=== PATIENT | male | born 1940 | race Caucasian/White ===

== ENCOUNTER 2019-02-27 22:20 | Inpatient (IN) | payer OTHER ==
--- NOTE | 2019-02-27 22:26 | PDOC ---
History of Present Illness - General Stated Complaint: R/O STROKE Time Seen by Provider: 02/27/19 22:26 - History of Present Illness Initial Comments: 78 year old male with PMH of CVA, HTN, Afib, COPD, and generalized weakness presenting with sudden onset right sided weakness and dysphagia at 20:45 today. According to his nurse, he is normally talkative, well behaved, and ambulatory. She found him slumped out of the couch at 20:45 while watching TV in the common area after being seen well a few minutes prior. He was very weak on the right side and had garbled speech. 02/27/19 22:56 tPA Exclusion Checklist 0-3hr - Time Elapsed Date last known well: 02/27/19 Time last known well: 20:45 Elaspsed time: Day(s) and 5 Hour(s) and 9 Minutes - Thrombolytic Therapy Candidate Is the patient eligible for Thrombolytic Therapy?: No - Exclusion Criteria 0-3hr SBP greater than 185 or DBP greater than 110mmHg despite tx: No Recent IC/spinal surgery,head trauma or stroke w/in last 3mo: No Hx of previous IC hemorrhage, IC neoplasm, AVM or aneurysm: No Active internal bleeding: No Blding diathesis(low plt ct, inc PTT,INR>1.7 or use of NOAC): Yes Symptoms suggest subarachnoid hemorrhage: No CT demonstrates multilobar infarct(>1/3 cerebral hemiphere): No Arterial puncture at noncompressible site in previous 7 days: No Blood glucose concentration less than 50mg/dL (2.7mmol/L): No - Relative Exclusion Criteria 0-3h Life expectancy <1yr/severe co-morbid illness/VICE PRESIDENT RESEARCH on admit: No - Ineligibility reason(s) Reasons No tPA given: See reason(s) noted above (eliquis) NIH Stroke Scale - Last Known Well Date/Time & Onset Date Last Known Well: 02/27/19 Time Last Known Well: 20:45 - Initial Evaluation Level of consciousness: Alert Ask patient the month and their age: Answers one correctly (Dysarthric so unable to speak) Ask patient to open & close eyes; make fist and let go: Obeys both correctly Best gaze (horizontal eye movement): Partial gaze palsy Visual field testing: Partial hemianopia Facial paresis (Show teeth/raise eyebrows/close eyes tight): Partial paralysis ( total or near paralysis of lower face) Motor Function: Left Arm: Normal Motor Function: Right Arm: Normal (extends arm 90 (or 45) degrees for 10 seconds without drift Motor Function: Left Leg: Normal (extends leg 30 degrees for 5 seconds without drift) Motor Function: Right Leg: Normal (extends leg 30 degrees for 5 seconds without drift) Limb Ataxia: No ataxia Sensory(Use pinprick test arms,legs,trunk,face/side to side): Normal Best language (Describe picture, name items, read sentences): No Aphasia Dysarthria (read several words): Near unintelligible or unable to speak Extinction and Inattention: Inattention or extinction bilaterally to one of the sensory modalities - Total Score NIH Stroke Scale Score: 8 Past History - Past Medical History Allergies/Adverse Reactions: Allergies Allergy/AdvReac Type Severity Reaction Status Date / Time No Known Allergies Allergy Verified 02/27/19 22:24 Home Medications: Ambulatory Orders Acetaminophen [Tylenol] 650 mg PO Q8H 02/28/19 Atorvastatin Ca [Lipitor] 80 mg PO HS 02/28/19 Calcium 250Mg/Vit-D 125 Units [Oscal 250 mg+D -] 1 combo PO BID 02/28/19 Carbamazepine 200 mg PO BID 02/28/19 Ceramides 1,3,6-11 [Cerave] 355 ml TP DAILY 02/28/19 Darbepoetin Odin in Polysorbat [Aranesp] 100 mcg IJ MONTHLY 02/28/19 Ferrous Gluconate [Ferate] 240 mg PO DAILY 02/28/19 Folic Acid 400 mcg PO DAILY 02/28/19 Gabapentin 600 mg PO BID 02/28/19 Lidocaine HCl [Aspercreme] 76.5 gm TP DAILY 02/28/19 Metoprolol Succinate [Toprol Xl] 100 mg PO DAILY 02/28/19 Niacin 500 mg PO HS 02/28/19 Pregabalin [Lyrica] 50 mg PO BID 02/28/19 Rivaroxaban [Xarelto -] 20 mg PO DAILY 02/28/19 Tamsulosin HCl [Flomax] 0.8 mg PO DAILY 02/28/19 Review of Systems - Review of Systems Able to Perform ROS?: No (dyaphagia) *Physical Exam - Physical Exam General Appearance: Yes: Nourished, Appropriately Dressed. No: Apparent Distress HEENT: positive: EOMI, CORTEZ. negative: Normal ENT Inspection (dysphagia, edontulius), Normal Voice Neck: positive: Trachea midline, Normal Thyroid, Supple. negative: Tender, Rigid Respiratory/Chest: positive: Lungs Clear, Normal Breath Sounds. negative: Chest Tender, Respiratory Distress, Accessory Muscle Use Cardiovascular: positive: Regular Rhythm, Regular Rate Gastrointestinal/Abdominal: positive: Normal Bowel Sounds, Flat, Soft. 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 negative: Normal Range of Motion, Tender Integumentary: positive: Normal Color, Dry, Warm Neurologic: positive: Alert, Normal Mood/Affect, Normal Response, Motor Strength 09/21 ED Treatment Course - LABORATORY CBC & Chemistry Diagram: 02/27/19 11:00 02/27/19 11:00 - RADIOLOGY Radiology Studies Ordered: Category Date Time Status HEAD CT (STROKE) [CT] Stat CT Scan 02/27/19 22:24 Ordered Medical Decision Making - Medical Decision Making 78 year old male with PMH of CVA presenting with right sided weakness and dysphagia. Ct head negative only showing old infarct and CTA head demonstrating microvascular low flow state to the left side hemisphere. Labs WNL but UA demonstrating possible infection. Patient given 1 G rocephin and 1 L fluid. Spoke to Neuro after dry CT and he recommended CTA and to call back if CTA demonsrated any clot because of ptoetnial for transfer as he was not a candidate for TPA given eliquis usage. Patient discussed with hospitalist and admitted to stroke tele. 02/28/19 02:04 Discharge - Discharge Information Problems reviewed: Yes Clinical Impression/Diagnosis: Weakness, Concern about stroke without diagnosis Dysphagia Qualifiers: Dysphagia type: unspecified Qualified Code(s): R13.10 - Dysphagia, unspecified Condition: Stable - Admission Yes - Follow up/Referral - Patient Discharge Instructions - Post Discharge Activity
[2019-02-27 23:23] LABS: BASO % 0.5 % (0-2.0); EOS % 2.2 % (0-4.5); HEMATOCRIT 31.2 % (35.4-49); HEMOGLOBIN 10.1 GM/dL (11.7-16.9); MCH 31.2 pg (25.7-33.7); MCHC 32.3 g/dl (32.0-35.9); MEAN CELL VOLUME 96.5 fl (80-96); MEAN PLT VOLUME 8.6 fl (7.5-11.1); MONO % 10.2 % (3.8-10.2); NEUT % 80.1 % (42.8-82.8); PLATELET COUNT 230 K/MM3 (134-434); RBC 3.23 M/mm3 (4.00-5.60); RDW 16.1 % (11.9-15.9); WHITE BLOOD COUNT 7.4 K/mm3 (4.0-10.0)
[2019-02-27 23:29] LABS: EPI CELLS 0.2 /HPF (0-5/HPF); HYALINE CASTS 13 /lpf (0-8); PH,URINE 6.5 (5.0-8.0); URINE APPEARANCE CLEAR; URINE BACTERIA 96.7 /hpf (NEGATIVE); URINE BILIRUBIN NEGATIVE (NEGATIVE); URINE COLOR YELLOW; URINE GLUCOSE (UA) NEGATIVE (NEGATIVE); URINE KETONE NEGATIVE (NEGATIVE); URINE LEUK ESTERASE 3+ (NEGATIVE); URINE NITRITE NEGATIVE (NEGATIVE); URINE PROTEIN TRACE (NEGATIVE); URINE RBC 3 /hpf (0-4); URINE UROBILINOGEN 0.2 mg/dL (0.2-1.0); URINE WBC 127 /hpf (0-5)
[2019-02-27 23:35] LABS: INR 1.07 (0.83-1.09); PROTHROMBIN TIME (PATIENT) 12.6 SEC (9.7-13.0)
[2019-02-27 23:43] LABS: ALBUMIN 3.5 g/dl (3.4-5.0); BILIRUBIN,TOTAL 0.3 mg/dL (0.2-1); CALCIUM 9.1 mg/dL (8.5-10.1); POTASSIUM 4.8 mmol/L (3.5-5.1); TOT PROT 7.2 g/dl (6.4-8.2)
[2019-02-27] MEDS: SODIUM CHLORIDE 1,000 ML IV SCH (23:46)
[2019-02-27] MEDS ORDERED: CEFTRIAXONE 1,000 MG in DEXTROSE 5%-WATER - 50 ML IVPB ONE (23:57)
[2019-02-27] MEDS ORDERED: CEFTRIAXONE 1 GM/50 ML BAG ONE (23:59)
--- NOTE | 2019-02-28 00:18 | PDOC ---
Attending Attestation - Resident Resident Name: Maxine Call - ED Attending Attestation I have performed the following: I have examined & evaluated the patient, The case was reviewed & discussed with the resident, I agree w/resident's findings & plan, Exceptions are as noted - HPI HPI: 02/28/19 01:08 Mr. Obrien is a 78 yo M h/o Afib on xeralto, HTN, COPD, CVA resident of [facility] who was sent to the ER after being found slumped over Pt was in his usual state of health, had dinner at 5 pm He was noted to slump over at approximately 8:45pm Pt noted to be dysarthric He has had no fevers or chills No head trauma 03/02/19 10:45 - Physicial Exam PE: 02/28/19 01:27 GENERAL: The patient is in no acute distress. ENT: Ears normal, nares patent, oropharynx clear without exudates. Moist mucous membranes. NECK: Normal range of motion, supple LUNGS: Breath sounds equal, clear to auscultation bilaterally. No wheezes, and no crackles. HEART: Regular rate and rhythm, normal S1 and S2 ABDOMEN: Soft, nontender, normoactive bowel sounds. EXTREMITIES: Normal range of motion, no edema. NEUROLOGICAL: flattening or nasolabial fold, able to hold hands and legs up against gravity Alert oriented x 0 , neck is supple Aphasic and not able to express eomi, pupils reactive See Dr. Call's NIHSS SKIN: Warm, Dry, no rashes 02/28/19 01:28 - Critical Care Time Total Critical Care Time: 60 Critical Care Statement: The care of this patient involved high complexity decision making to prevent further life threatening deterioration of the patient 's condition and/or to evaluate & treat vital organ system(s) failure or risk of failure. - Medical Decision Making CODE MATHIS called on this patient CT performed - demonstrates prior cerebellar stroke, no acute intracranial bleed Call placed to neurology 02/28/19 00:18 Laboratory Tests 02/27/19 02/27/19 02/27/19 11:00 11:00 11:00 WBC 7.4 Hgb 10.1 L Hct 31.2 L Plt Count 230 BUN 28.0 H Creatinine 1.0 Creatine Kinase 27 Troponin I < 0.02 Urine Blood Urine Nitrite Ur Leukocyte Esterase Urine WBC (Auto) Urine RBC (Auto) 02/27/19 11:20 WBC Hgb Hct Plt Count BUN Creatinine Creatine Kinase Troponin I Urine Blood Negative Urine Nitrite Negative Ur Leukocyte Esterase 3+ H Urine WBC (Auto) 127 Urine RBC (Auto) 3 CTA performed: results pending 02/28/19 01:28 Pt remains dysarthric Remainder of his examination is improving Clinical impression: CVA, initial presentation UTI, initial presentation
[2019-02-28] MEDS ORDERED: SODIUM CHLORIDE FOR INHALATION 3 ML VIAL.NEB IH ONE (00:35)
--- NOTE | 2019-02-28 02:43 | PN ---
Teaching Attending Note Name of Resident: Jenniffer Winslow ATTENDING PHYSICIAN STATEMENT I saw and evaluated the patient. I reviewed the resident's note and discussed the case with the resident. I agree with the resident's findings and plan as documented. SUBJECTIVE: Patient is a 78 year old man resident of [facility] with PMH of CVA, HTN, Afib (on xarelto), COPD, and Generalized weakness presenting with sudden onset right sided weakness and dysphagia at 20:45 today. According to his nurse, he is normally talkative, well behaved, and ambulatory. She found him slumped out of the couch at 20:45 while watching TV in the common area after being seen well a few minutes prior. He was very weak on the right side and had garbled speech. Unable to provide more information because of dysarthria. Able to say yes/no and nods. He has had no fevers or chills and no head trauma. OBJECTIVE: Alert Vital Signs Period Temp Pulse Resp BP Sys/Charles Pulse Ox Last 24 Hr 97.6 F-97.8 F 59-66 18-18 158/51 95-99 HEENT: No Jaundice, eye redness or discharge, PERRLA, EOMI. Loss of right nasolabial fold. Normocephalic, atraumatic. External ears are normal and hearing is grossly intact. No nasal discharge. Neck: Supple, nontender. No palpable adenopathy or thyromegaly. No JVD Chest: Good effort. Clear to auscultation and percussion. Heart: Regular with ectopics. No S3, rub or murmur Abdomen: Not distended, soft, nontender and no HSM. No rebound or guarding. Normal bowel sounds. Ext: Peripheral pulses intact. No leg edema. Skin: Warm and dry. No petechiae, rash or ecchymosis. Neuro: Alert. Oriented to person; CN 2-12 grossly intact. Right hemiparesis; Sensation grossly intact in upper extremities and diminished in lower extremities. Psych: Appropriate mood and affect. Good insight. Current Medications Generic Name Dose Route Start Last Admin Trade Name Freq PRN Reason Stop Dose Admin Sodium Chloride 1,000 mls @ 42 mls/hr 02/27/19 22:30 02/27/19 23:46 Normal Saline - IV 42 mls/hr ASDIR AMINA Administration Home Medications Medication Instructions Recorded Acetaminophen [Tylenol] 650 mg PO Q8H 02/28/19 Atorvastatin Ca [Lipitor] 80 mg PO HS 02/28/19 Calcium 250Mg/Vit-D 125 Units 1 combo PO BID 02/28/19 [Oscal 250 mg+D -] Carbamazepine 200 mg PO BID 02/28/19 Ceramides 1,3,6-11 [Cerave] 355 ml TP DAILY 02/28/19 Darbepoetin Odin in Polysorbat 100 mcg IJ MONTHLY 02/28/19 [Aranesp] Ferrous Gluconate [Ferate] 240 mg PO DAILY 02/28/19 Folic Acid 400 mcg PO DAILY 02/28/19 Gabapentin 600 mg PO BID 02/28/19 Lidocaine HCl [Aspercreme] 76.5 gm TP DAILY 02/28/19 Metoprolol Succinate [Toprol Xl] 100 mg PO DAILY 02/28/19 Niacin 500 mg PO HS 02/28/19 Pregabalin [Lyrica] 50 mg PO BID 02/28/19 Rivaroxaban [Xarelto -] 20 mg PO DAILY 02/28/19 Tamsulosin HCl [Flomax] 0.8 mg PO DAILY 02/28/19 Abnormal Lab Results 02/27/19 02/27/19 02/27/19 11:00 11:00 11:20 RBC 3.23 L Hgb 10.1 L Hct 31.2 L MCV 96.5 H RDW 16.1 H Lymphocytes % 7.0 L Anion Gap 3 L BUN 28.0 H Alkaline Phosphatase 152 H Ur Leukocyte Esterase 3+ H ASSESSMENT AND PLAN: 1. CVA/UTI - Initial NIHSS score in the ER was 8. ER staff consulted the neurologist and patient is not a candidate for tPA because he is on Xarelto. Noncontrast head CT showed prior cerebellar stroke but no intracranial bleed. A CTA of brain has been done and the result is pending. EKG shows NSR with no significant ST-T wave changes. Will do neurochecks, implement fall, seizure and aspiration precautions. Will keep him NPO, get speech and swallow evaluation, ECHO, carotid doppler, continue statin therapy, continue xarelto and consult PT. Will treat with Zosyn for UTI pending result of urine culture since he is from a NH. Getting IV NS for mild ROSA ISELA. Will continue comprehensive care for all of patients comorbid conditions. 2. Anemia - Likely multifactorial. Will do basic anemia work up including serial stool guaiacs, reticulocyte count and iron studies. Patient is on Aranesp and Ferrous Gluconate - may benefit from IV iron once intensity of iron deficiency is established. 3. Hypertension - Will practice permissive hypertension for now. Restart suitable outpatient antihypertensive drugs when clinically appropriate. Revise regimen to ensure [id number] excellent BP control and benefits counselor patient on the injurious effects of uncontrolled hypertension. Nonpharmacologic measures to control hypertension like weight loss, salt restriction and exercise discussed. Importance of adherence to treatment regimen and attainment of normotension emphasized. 4. DVT prophylaxis - On xarelto for Afib 5. Advance directives - Full code
--- NOTE | 2019-02-28 05:13 | HP ---
CHIEF COMPLAINT: Right arm weakness and slurred speech PCP: none HISTORY OF PRESENT ILLNESS: As per ED as PT is dysarthric 78 year old male with PMH of CVA, HTN, Afib on Xarelto, COPD, and generalized weakness presenting from [facility] [address] with sudden onset right sided weakness and dysphagia at 20:45 today. According to his nurse, he is normally talkative, well behaved, and ambulatory and had his regular dinner at 17:00. The nurse found him slumped out of the couch at 20:45 while watching TV in the common area after being seen well a few minutes prior. He was very weak on the right side and had garbled speech. ER course was notable for: (1)EKG sinus Bradycardia and a Head CT negative for acute infarct or bleed just 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 (2)CTA done and read by Dr Mills who noted microvascular low flow state to the Left hemisphere with absent macrovascular disease. pending official read (3) CBC remarkable only for anemia of 10.1/31.2, BMP unremarkable, PT 12.6/INR 1.07, trops neg x1, lipid panel UA positive with 1gm of rocephin given and urine culture sent. !L NS bolus Recent Travel: none PAST MEDICAL HISTORY: unobtainable at this time due to dysphagia and dysarthria PAST SURGICAL HISTORY: unobtainable at this time due to dysphagia and dysarthria Social History: unobtainable at this time due to dysphagia and dysarthria Smoking: Alcohol: Drugs: Allergies No Known Allergies Allergy (Verified 02/27/19 22:24) HOME MEDICATIONS: Home Medications Medication Instructions Recorded Acetaminophen [Tylenol] 650 mg PO Q8H 02/28/19 Atorvastatin Ca [Lipitor] 80 mg PO HS 02/28/19 Calcium 250Mg/Vit-D 125 Units 1 combo PO BID 02/28/19 [Oscal 250 mg+D -] Carbamazepine 200 mg PO BID 02/28/19 Ceramides 1,3,6-11 [Cerave] 355 ml TP DAILY 02/28/19 Darbepoetin Odin in Polysorbat 100 mcg IJ MONTHLY 02/28/19 [Aranesp] Ferrous Gluconate [Ferate] 240 mg PO DAILY 02/28/19 Folic Acid 400 mcg PO DAILY 02/28/19 Gabapentin 600 mg PO BID 02/28/19 Lidocaine HCl [Aspercreme] 76.5 gm TP DAILY 02/28/19 Metoprolol Succinate [Toprol Xl] 100 mg PO DAILY 02/28/19 Niacin 500 mg PO HS 02/28/19 Pregabalin [Lyrica] 50 mg PO BID 02/28/19 Rivaroxaban [Xarelto -] 20 mg PO DAILY 02/28/19 Tamsulosin HCl [Flomax] 0.8 mg PO DAILY 02/28/19 REVIEW OF SYSTEMS CONSTITUTIONAL: Absent: fever, chills, diaphoresis, generalized weakness, malaise, loss of appetite, weight change HEENT: Absent: rhinorrhea, nasal congestion, throat pain, throat swelling, difficulty swallowing, mouth swelling, ear pain, eye pain, visual changes CARDIOVASCULAR: Absent: chest pain, syncope, palpitations, irregular heart rate, lightheadedness , peripheral edema RESPIRATORY: Absent: cough, shortness of breath, dyspnea with exertion, orthopnea, wheezing, stridor, hemoptysis GASTROINTESTINAL: Absent: abdominal pain, abdominal distension, nausea, vomiting, diarrhea, constipation, melena, hematochezia GENITOURINARY: Absent: dysuria, frequency, urgency, hesitancy, hematuria, flank pain, genital pain MUSCULOSKELETAL: Absent: myalgia, arthralgia, joint swelling, back pain, neck pain SKIN: Absent: rash, itching, pallor HEMATOLOGIC/IMMUNOLOGIC: Absent: easy bleeding, easy bruising, lymphadenopathy, frequent infections ENDOCRINE: Absent: unexplained weight gain, unexplained weight loss, heat intolerance, cold intolerance NEUROLOGIC: Absent: headache, focal weakness or paresthesias, dizziness, unsteady gait, seizure, mental status changes, bladder or bowel incontinence PSYCHIATRIC: Absent: anxiety, depression, suicidal or homicidal ideation, hallucinations. PHYSICAL EXAMINATION Vital Signs - 24 hr 02/27/19 02/27/19 02/27/19 22:30 22:59 23:25 Temperature 97.6 F 97.8 F Pulse Rate 59 L 59 L Pulse Rate [ Apical] Respiratory 18 18 Rate Blood Pressure 158/51 L O2 Sat by Pulse 95 99 Oximetry (%) 02/28/19 00:25 Temperature 97.8 F Pulse Rate Pulse Rate [ 66 Apical] Respiratory 18 Rate Blood Pressure O2 Sat by Pulse 99 Oximetry (%) GENERAL: Awake, alert, and fully oriented, in no acute distress. HEAD: Normal with no signs of trauma. EYES: Pupils equal, round and reactive to light, extraocular movements intact, sclera anicteric, conjunctiva clear. No lid lag. EARS, NOSE, THROAT: oropharynx clear without exudates. dry mucous membranes. NECK:JVD, or masses. LUNGS: Breath sounds equal, clear to auscultation bilaterally. No wheezes, and no crackles. No accessory muscle use. HEART: Regular rate and rhythm, normal S1 and S2 without murmur, rub or gallop. ABDOMEN: Soft, nontender, not distended, normoactive bowel sounds, no guarding, no rebound, no masses. No hepatomegaly or splenomegaly. UPPER EXTREMITIES: 2+ pulses, warm, well-perfused. No cyanosis. No clubbing. No peripheral edema. LOWER EXTREMITIES: 2+ pulses, warm, well-perfused. No calf tenderness. No peripheral edema. NEUROLOGICAL: dysarthric and limited to yes and no. Strength 5/5 on L and 4/5 on right. handgrip 5/5 on left 4/5 on right. Sensation intact b/l in UE. strength 5/5 in LE but sensation reduced as per pt PSYCHIATRIC: Cooperative. Good eye contact. Appropriate mood and affect. SKIN: Warm, dry, normal turgor, no rashes or lesions noted, normal capillary refill. Laboratory Results - last 24 hr 02/27/19 02/27/19 02/27/19 11:00 11:00 11:00 WBC 7.4 RBC 3.23 L Hgb 10.1 L Hct 31.2 L MCV 96.5 H MCH 31.2 MCHC 32.3 RDW 16.1 H Plt Count 230 MPV 8.6 Absolute Neuts (auto) 6.0 Neutrophils % 80.1 Lymphocytes % 7.0 L Monocytes % 10.2 Eosinophils % 2.2 Basophils % 0.5 Nucleated RBC % 0 PT with INR INR Sodium Potassium Chloride Carbon Dioxide Anion Gap BUN Creatinine Est GFR (CKD-EPI)AfAm Est GFR (CKD-EPI)NonAf Random Glucose Calcium Total Bilirubin AST ALT Alkaline Phosphatase Creatine Kinase 27 Troponin I < 0.02 Total Protein Albumin Triglycerides Cholesterol Cancelled Total LDL Cholesterol HDL Cholesterol Urine Color Urine Appearance Urine pH Ur Specific [place] Urine Protein Urine Glucose (UA) Urine Ketones Urine Blood Urine Nitrite Urine Bilirubin Urine Urobilinogen Ur Leukocyte Esterase Urine WBC (Auto) Urine RBC (Auto) Urine Casts (Auto) U Epithel Cells (Auto) Urine Bacteria (Auto) Blood Type Antibody Screen 02/27/19 02/27/19 02/27/19 11:00 11:00 11:00 WBC RBC Hgb Hct MCV MCH MCHC RDW Plt Count MPV Absolute Neuts (auto) Neutrophils % Lymphocytes % Monocytes % Eosinophils % Basophils % Nucleated RBC % PT with INR 12.60 INR 1.07 Sodium 136 Potassium 4.8 Chloride 102 Carbon Dioxide 31 Anion Gap 3 L BUN 28.0 H Creatinine 1.0 Est GFR (CKD-EPI)AfAm 82.60 Est GFR (CKD-EPI)NonAf 71.27 Random Glucose 103 Calcium 9.1 Total Bilirubin 0.3 AST 21 ALT 18 Alkaline Phosphatase 152 H Creatine Kinase Troponin I Total Protein 7.2 Albumin 3.5 Triglycerides 73 Cholesterol 159 Total LDL Cholesterol 85 HDL Cholesterol 58 Urine Color Urine Appearance Urine pH Ur Specific [place] Urine Protein Urine Glucose (UA) Urine Ketones Urine Blood Urine Nitrite Urine Bilirubin Urine Urobilinogen Ur Leukocyte Esterase Urine WBC (Auto) Urine RBC (Auto) Urine Casts (Auto) U Epithel Cells (Auto) Urine Bacteria (Auto) Blood Type O POSITIVE Antibody Screen Negative 02/27/19 11:20 WBC RBC Hgb Hct MCV MCH MCHC RDW Plt Count MPV Absolute Neuts (auto) Neutrophils % Lymphocytes % Monocytes % Eosinophils % Basophils % Nucleated RBC % PT with INR INR Sodium Potassium Chloride Carbon Dioxide Anion Gap BUN Creatinine Est GFR (CKD-EPI)AfAm Est GFR (CKD-EPI)NonAf Random Glucose Calcium Total Bilirubin AST ALT Alkaline Phosphatase Creatine Kinase Troponin I Total Protein Albumin Triglycerides Cholesterol Total LDL Cholesterol HDL Cholesterol Urine Color Yellow Urine Appearance Clear Urine pH 6.5 Ur Specific [place] 1.018 Urine Protein Trace Urine Glucose (UA) Negative Urine Ketones Negative Urine Blood Negative Urine Nitrite Negative Urine Bilirubin Negative Urine Urobilinogen 0.2 Ur Leukocyte Esterase 3+ H Urine WBC (Auto) 127 Urine RBC (Auto) 3 Urine Casts (Auto) 13 U Epithel Cells (Auto) 0.2 Urine Bacteria (Auto) 96.7 Blood Type Antibody Screen ASSESSMENT/PLAN: 78 year old male with PMH of CVA, HTN, Afib on Xarelto, COPD, and generalized weakness presenting from [facility] on [address] with sudden onset right sided weakness and dysphagia with slurred speech Acute Right sided weakness poss due to ischemic stroke Admitted to tele Head CT and CTA findings decribed above permissive HTN for the next 24hrs will monitor BP for when okay to resume home BP meds Dr Mills consulted and on board Echo ordered carotid U/S ordered F/U neuro rect for MRI of brain Speech and Swallow eval neurochecks Q2h PT ordered NPO until speech and swallow, pt failed dysphagia screen in ED will give home dose lipitor 80 and Xarelto once patient clear for PO meds Fall and seizure precautions UTI with Positive UA urine culture pending pt received 1gm of rocephin in ED Due to pt coming from [place], IV Zosyn favorable Anemia poss chronic due to med list need assessment for severity basic Iron panel ordered stool occult blood reticulocyte count for BM assessment Pt currently on darbepoetin and ferate. due to low bioavailability if iron studies support CONI. will start on venofed 500 mg d x 2 doses DVT Xarelto once keegan PO SCDs Visit type - Emergency Visit Emergency Visit: Yes ED Registration Date: 02/27/19 Care time: The patient presented to the Emergency Department on the above date and was hospitalized for further evaluation of their emergent condition. - New Patient This patient is new to me today: Yes Date on this admission: 02/28/19 - Critical Care Critical Care patient: No ATTENDING PHYSICIAN STATEMENT I saw and evaluated the patient. I reviewed the resident's note and discussed the case with the resident. I agree with the resident's findings and plan as documented. SUBJECTIVE: OBJECTIVE: ASSESSMENT AND PLAN:
[2019-02-28] MEDS ORDERED: PIPERACILLIN/TAZOB 3.375 GM 3.375 GM in DEXTROSE 5%-WATER - 50 ML IVPB SCH (10:00)
--- NOTE | 2019-02-28 10:11 | HOSP ---
Subjective - Review of Symptoms Events since last encounter: Patient is nonverbal , starring at the left side. does not follow any command. Vital Signs Temperature 97.3 F L 02/28/19 09:32 Pulse Rate 63 02/28/19 09:32 Respiratory Rate 18 02/28/19 09:32 Blood Pressure 157/57 L 02/28/19 09:32 O2 Sat by Pulse Oximetry (%) 97 02/28/19 09:32 GENERAL: The patient is lying in bed, not aware of the surrounding, in NAD. HEAD: Normal with no signs of trauma. EYES: EOMI, stares to the left side. sclera anicteric, conjunctiva clear. ENT: Ears normal, oropharynx clear without exudates, moist mucous membranes. NECK: Trachea midline, full range of motion, supple. LUNGS: Breath sounds equal, clear to auscultation bilaterally, no wheezes, no crackles, no accessory muscle use. HEART: Regular rate and rhythm, S1, S2 positive, PENELOPE 2/6 , no rub or gallop. ABDOMEN: Soft, NT, ND, +BS, no guarding, no rebound, no hepatosplenomegaly, no masses. EXTREMITIES: 2+ pulses, warm, well-perfused, no edema. NEUROLOGICAL: Cranial nerves II through XII grossly intact. gait not observed. PSYCH: Normal mood, normal affect. SKIN: Warm, dry, normal turgor, no rashes or lesions noted CBCD WBC 7.4 K/mm3 (4.0-10.0) 02/27/19 11:00 RBC 3.23 M/mm3 (4.00-5.60) L 02/27/19 11:00 Hgb 10.1 GM/dL (11.7-16.9) L 02/27/19 11:00 Hct 31.2 % (35.4-49) L 02/27/19 11:00 MCV 96.5 fl (80-96) H 02/27/19 11:00 MCHC 32.3 g/dl (32.0-35.9) 02/27/19 11:00 RDW 16.1 % (11.9-15.9) H 02/27/19 11:00 Plt Count 230 K/MM3 (134-434) 02/27/19 11:00 MPV 8.6 fl (7.5-11.1) 02/27/19 11:00 CMP Sodium 136 mmol/L (136-145) 02/27/19 11:00 Potassium 4.8 mmol/L (3.5-5.1) 02/27/19 11:00 Chloride 102 mmol/L (98-107) 02/27/19 11:00 Carbon Dioxide 31 mmol/L (21-32) 02/27/19 11:00 Anion Gap 3 MMOL/L (8-16) L 02/27/19 11:00 BUN 28.0 mg/dL (7-18) H 02/27/19 11:00 Creatinine 1.0 mg/dL (0.55-1.3) 02/27/19 11:00 Random Glucose 103 mg/dL (74-106) 02/27/19 11:00 Calcium 9.1 mg/dL (8.5-10.1) 02/27/19 11:00 Total Bilirubin 0.3 mg/dL (0.2-1) 02/27/19 11:00 AST 21 U/L (15-37) 02/27/19 11:00 ALT 18 U/L (13-61) 02/27/19 11:00 Alkaline Phosphatase 152 U/L (45-117) H 02/27/19 11:00 Total Protein 7.2 g/dl (6.4-8.2) 02/27/19 11:00 Albumin 3.5 g/dl (3.4-5.0) 02/27/19 11:00 CARDIAC ENZYMES Creatine Kinase 27 U/L (26-308) 02/27/19 11:00 Troponin I 0.04 ng/ml (0.00-0.05) 02/28/19 06:15 Current Medications Generic Name Dose Route Start Last Admin Trade Name Freq PRN Reason Stop Dose Admin Atorvastatin Calcium 80 mg 02/28/19 22:00 Lipitor - PO HS AMINA Sodium Chloride 1,000 mls @ 42 mls/hr 02/27/19 22:30 02/27/19 23:46 Normal Saline - IV 42 mls/hr ASDIR AMINA Administration Piperacillin Sod/Tazobactam 50 mls @ 100 mls/hr 02/28/19 10:00 Sod 3.375 gm/ Dextrose IVPB Q8H-IV AMINA Protocol Piperacillin Sod/Tazobactam 50 mls @ 100 mls/hr 02/28/19 10:00 Sod 3.375 gm/ Dextrose IVPB 03/01/19 02:29 Q8H-IV [facility] Rivaroxaban 20 mg 02/28/19 18:00 Xarelto PO DAILY@1800 [facility] Home Medications Medication Instructions Recorded Acetaminophen [Tylenol] 650 mg PO Q8H 02/28/19 Atorvastatin Ca [Lipitor] 80 mg PO HS 02/28/19 Calcium 250Mg/Vit-D 125 Units 1 combo PO BID 02/28/19 [Oscal 250 mg+D -] Carbamazepine 200 mg PO BID 02/28/19 Ceramides 1,3,6-11 [Cerave] 355 ml TP DAILY 02/28/19 Darbepoetin Odin in Polysorbat 100 mcg IJ MONTHLY 02/28/19 [Aranesp] Ferrous Gluconate [Ferate] 240 mg PO DAILY 02/28/19 Folic Acid 400 mcg PO DAILY 02/28/19 Gabapentin 600 mg PO BID 02/28/19 Lidocaine HCl [Aspercreme] 76.5 gm TP DAILY 02/28/19 Metoprolol Succinate [Toprol Xl] 100 mg PO DAILY 02/28/19 Niacin 500 mg PO HS 02/28/19 Pregabalin [Lyrica] 50 mg PO BID 02/28/19 Rivaroxaban [Xarelto -] 20 mg PO DAILY 02/28/19 Tamsulosin HCl [Flomax] 0.8 mg PO DAILY 02/28/19 CT: large chronic left posterior temporal cortical/subcortical infarct, punctuate left basal ganglia infarcts which are propably chronic moderate periventricular chronic microvascular ischemic changes Microbiology 02/27/19 11:20 Urine - Urine - Catheterized Urine Culture - Preliminary Beta Hem Streptococcus Group G (40-50K) final resulte ASSESSMENT/PLAN: Patient is a 78 year old male with PMHx of CVA, HTN, Afib on Xarelto, COPD, and generalized weakness presenting from [facility] on [address] with sudden onset right sided weakness, dysphagia with slurred speech. #Acute Right sided weakness r/o ischemic stroke: failed dysphagia screen in ED, Head CT and CTA findings described above Dr Mills consulted, Echo ordered, carotid U/S ordered, Speech and Swallow eval , neurochecks Q2h, PT ordered, continue lipitor 80mg hs, continue home Xarelto, Fall and seizure precautions # Acute UTI ; urinary cx as above , on Rocephin 1gm continue # Anemia is above 10, will hold aranespt . DVT: SCDs Physical Examination Vital Signs: Vital Signs Temperature 97.3 F L 02/28/19 09:32 Pulse Rate 63 02/28/19 09:32 Respiratory Rate 18 02/28/19 09:32 Blood Pressure 157/57 L 02/28/19 09:32 O2 Sat by Pulse Oximetry (%) 97 02/28/19 09:32 Labs: CBC, BMP 02/27/19 11:00 02/27/19 11:00
[2019-02-28] MEDS ORDERED: CEFTRIAXONE 1 GM in DEXTROSE 5%-WATER - 50 ML IVPB ONE (12:00)
[2019-02-28] MEDS ORDERED: CEFTRIAXONE 1 GM/50 ML BAG ONE (12:11)
--- NOTE | 2019-02-28 12:30 | CON.NEURO ---
Consult - Alcohol/Substance Use Hx Alcohol Use: No - Smoking History Smoking history: Unknown if ever smoked Have you smoked in the past 12 months: No Home Medications - Allergies Allergies/Adverse Reactions: Allergies Allergy/AdvReac Type Severity Reaction Status Date / Time No Known Allergies Allergy Verified 02/27/19 22:24 - Home Medications Home Medications: Ambulatory Orders Acetaminophen [Tylenol] 650 mg PO Q8H 02/28/19 Atorvastatin Ca [Lipitor] 80 mg PO HS 02/28/19 Calcium 250Mg/Vit-D 125 Units [Oscal 250 mg+D -] 1 combo PO BID 02/28/19 Carbamazepine 200 mg PO BID 02/28/19 Ceramides 1,3,6-11 [Cerave] 355 ml TP DAILY 02/28/19 Darbepoetin Odin in Polysorbat [Aranesp] 100 mcg IJ MONTHLY 02/28/19 Ferrous Gluconate [Ferate] 240 mg PO DAILY 02/28/19 Folic Acid 400 mcg PO DAILY 02/28/19 Gabapentin 600 mg PO BID 02/28/19 Lidocaine HCl [Aspercreme] 76.5 gm TP DAILY 02/28/19 Metoprolol Succinate [Toprol Xl] 100 mg PO DAILY 02/28/19 Niacin 500 mg PO HS 02/28/19 Pregabalin [Lyrica] 50 mg PO BID 02/28/19 Rivaroxaban [Xarelto -] 20 mg PO DAILY 02/28/19 Tamsulosin HCl [Flomax] 0.8 mg PO DAILY 02/28/19 Physical Exam-Neuro Vital Signs: Vital Signs Temperature 97.3 F L 02/28/19 09:32 Pulse Rate 63 02/28/19 09:32 Respiratory Rate 18 02/28/19 09:32 Blood Pressure 157/57 L 02/28/19 09:32 O2 Sat by Pulse Oximetry (%) 97 02/28/19 09:32 Labs: CBC, BMP 02/27/19 11:00 02/27/19 11:00 INR, PTT INR 1.07 (0.83-1.09) 02/27/19 11:00 Assessment/Plan CC Right sided hemiparesis and difficulty speaking HPI 78 year old male history of Stroke, htn, Afib, COPD. Patient is [facility] patient and came with right sided sided weakness and difficulty swallowing. Patient is sually talkative as per nursing notes. Paitent is able to walk and talkative. Patient right sided seems to be improved. Paitent bp was 175/53. Allergies/Adverse Reactions: Allergies Allergy/AdvReac Type Severity Reaction Status Date / Time No Known Allergies Allergy Verified 02/27/19 22:24 Home Medications: Acetaminophen [Tylenol] 650 mg PO Q8H 02/28/19 Atorvastatin Ca [Lipitor] 80 mg PO HS 02/28/19 Calcium 250Mg/Vit-D 125 Units [Oscal 250 mg+D -] 1 combo PO BID 02/28/19 Carbamazepine 200 mg PO BID 02/28/19 Ceramides 1,3,6-11 [Cerave] 355 ml TP DAILY 02/28/19 Darbepoetin Odin in Polysorbat [Aranesp] 100 mcg IJ MONTHLY 02/28/19 Ferrous Gluconate [Ferate] 240 mg PO DAILY 02/28/19 Folic Acid 400 mcg PO DAILY 02/28/19 Gabapentin 600 mg PO BID 02/28/19 Lidocaine HCl [Aspercreme] 76.5 gm TP DAILY 02/28/19 Metoprolol Succinate [Toprol Xl] 100 mg PO DAILY 02/28/19 Niacin 500 mg PO HS 02/28/19 Pregabalin [Lyrica] 50 mg PO BID 02/28/19 Rivaroxaban [Xarelto -] 20 mg PO DAILY 02/28/19 Tamsulosin HCl [Flomax] 0.8 mg PO DAILY 02/28/19 ROS,FH, SH reviewed in chart NEUROLOGICAL EXAMINATION Alert oriented x 0 , neck is supple afebrile bp 173/53 patient is aphasic and not able to express, and jeremy to follow command with geture eomi, pupils reactive moving all extremity ct head showed large post temporal infarct Assessment/Plan78 year old male with history of atrial fibrillation and old stroke came with right hemiparesis and dysphagia and hemiparesis seems to be resolved, patient still have aphasia, ( apparently there is chagne in his status from baseline) . Most likley let mca stroke. He failed swallowing test Plan: suggest to get mri of brain , if not possible, ct head can be repeated - statin was increased dvt prophylaxis, speech PT cta report is pending, carotid ultrasound report is pending will conitinue to follow up Thanking you so much Tonio
--- NOTE | 2019-02-28 14:57 | EKG ---
Test Reason : Blood Pressure : / mmHG Vent. Rate : 058 BPM Atrial Rate : 058 BPM P-R Int : 178 ms QRS Dur : 106 ms QT Int : 434 ms P-R-T Axes : 094 034 062 degrees QTc Int : 426 ms SINUS BRADYCARDIA OTHERWISE NORMAL ECG NO PREVIOUS ECGS AVAILABLE Confirmed by Christine Peter ([id number]) on 02/28/2019 2:56:57 PM Referred By: Confirmed By:Christine Peter
[2019-02-28] MEDS: RIVAROXABAN 20 MG TABLET PO SCH (19:26)
[2019-02-28] MEDS: ATORVASTATIN CA 80 MG TABLET (FP) PO SCH (21:20)
[2019-02-28] MEDS: SODIUM CHLORIDE 1,000 ML IV SCH (22:35)
[2019-03-01 06:52] LABS: BASO % 0.5 % (0-2.0); EOS % 0.2 % (0-4.5); HEMATOCRIT 31.9 % (35.4-49); HEMOGLOBIN 10.4 GM/dL (11.7-16.9); LYMPH % 3.3 % (8-40); MCH 31.5 pg (25.7-33.7); MCHC 32.8 g/dl (32.0-35.9); MEAN CELL VOLUME 96.2 fl (80-96); MEAN PLT VOLUME 9.4 fl (7.5-11.1); MONO % 9.5 % (3.8-10.2); NEUT % 86.5 % (42.8-82.8); PLATELET COUNT 246 K/MM3 (134-434); RBC 3.31 M/mm3 (4.00-5.60); WHITE BLOOD COUNT 11.2 K/mm3 (4.0-10.0)
[2019-03-01 07:36] LABS: BLOOD UREA NITROGEN 15.6 mg/dL (7-18); CALCIUM 8.9 mg/dL (8.5-10.1); CREATININE 0.8 mg/dL (0.55-1.3); MAGNESIUM 1.9 mg/dL (1.8-2.4); POTASSIUM 4.2 mmol/L (3.5-5.1)
[2019-03-01] MEDS: CEFTRIAXONE 1 GM in DEXTROSE 5%-WATER - 50 ML IVPB SCH (09:45)
--- NOTE | 2019-03-01 10:38 | PN ---
Teaching Attending Note Name of Resident: Yanet Guy ATTENDING PHYSICIAN STATEMENT I saw and evaluated the patient. I reviewed the resident's note and discussed the case with the resident. I agree with the resident's findings and plan as documented. SUBJECTIVE: Patient is lying in bed , unaware of his surroundings. OBJECTIVE: Vital Signs Temperature 97.3 F L 02/28/19 20:16 Pulse Rate 66 02/28/19 20:16 Respiratory Rate 17 02/28/19 21:00 Blood Pressure 141/62 02/28/19 20:16 O2 Sat by Pulse Oximetry (%) 98 02/28/19 21:00 GENERAL: The patient is lying in bed, not aware of the surrounding, in NAD. HEAD: Normal with no signs of trauma. EYES: eyes open . stares to the left side. sclera anicteric, conjunctiva clear. ENT: Ears normal, oropharynx clear without exudates, moist mucous membranes. NECK: Trachea midline, full range of motion, supple. LUNGS: decreased Breath sounds BL, no wheezes, no crackles, no accessory muscle use. HEART: irregularly-irregular rate of 66, S1, S2 positive, PENELOPE 3/6 , no rub or gallop. ABDOMEN: Soft, NT, ND, +BS, no guarding, no rebound, no hepatosplenomegaly, no masses. EXTREMITIES: 2+ pulses, warm, well-perfused, no edema. NEUROLOGICAL: Cranial nerves II through XII grossly intact. gait not observed. aphasic. PSYCH: unaware of his sorroundings , non verbal SKIN: Warm, dry, normal turgor, no rashes or lesions noted CBCD WBC 11.2 K/mm3 (4.0-10.0) H 03/01/19 06:05 RBC 3.31 M/mm3 (4.00-5.60) L 03/01/19 06:05 Hgb 10.4 GM/dL (11.7-16.9) L 03/01/19 06:05 Hct 31.9 % (35.4-49) L 03/01/19 06:05 MCV 96.2 fl (80-96) H 03/01/19 06:05 MCHC 32.8 g/dl (32.0-35.9) 03/01/19 06:05 RDW 16.0 % (11.9-15.9) H 03/01/19 06:05 Plt Count 246 K/MM3 (134-434) 03/01/19 06:05 MPV 9.4 fl (7.5-11.1) 03/01/19 06:05 CMP Sodium 136 mmol/L (136-145) 03/01/19 06:05 Potassium 4.2 mmol/L (3.5-5.1) 03/01/19 06:05 Chloride 103 mmol/L (98-107) 03/01/19 06:05 Carbon Dioxide 25 mmol/L (21-32) 03/01/19 06:05 Anion Gap 8 MMOL/L (8-16) 03/01/19 06:05 BUN 15.6 mg/dL (7-18) 03/01/19 06:05 Creatinine 0.8 mg/dL (0.55-1.3) 03/01/19 06:05 Random Glucose 104 mg/dL (74-106) 03/01/19 06:05 Calcium 8.9 mg/dL (8.5-10.1) 03/01/19 06:05 Total Bilirubin 0.3 mg/dL (0.2-1) 02/27/19 11:00 AST 21 U/L (15-37) 02/27/19 11:00 ALT 18 U/L (13-61) 02/27/19 11:00 Alkaline Phosphatase 152 U/L (45-117) H 02/27/19 11:00 Total Protein 7.2 g/dl (6.4-8.2) 02/27/19 11:00 Albumin 3.5 g/dl (3.4-5.0) 02/27/19 11:00 CARDIAC ENZYMES Creatine Kinase 27 U/L (26-308) 02/27/19 11:00 Troponin I 0.04 ng/ml (0.00-0.05) 02/28/19 06:15 Current Medications Generic Name Dose Route Start Last Admin Trade Name Freq PRN Reason Stop Dose Admin Atorvastatin Calcium 80 mg 02/28/19 22:00 02/28/19 21:20 Lipitor - PO Not Given HS AMINA Sodium Chloride 1,000 mls @ 42 mls/hr 02/27/19 22:30 02/28/19 22:35 Normal Saline - IV Not Given ASDIR AMINA Ceftriaxone Sodium 1 gm/ 50 mls @ 100 mls/hr 03/01/19 10:00 03/01/19 09:45 Dextrose IVPB 100 mls/hr DAILY [facility] Administration Rivaroxaban 20 mg 02/28/19 18:00 02/28/19 19:26 Xarelto PO Not Given DAILY@1800 [facility] Home Medications Medication Instructions Recorded Acetaminophen [Tylenol] 650 mg PO Q8H 02/28/19 Atorvastatin Ca [Lipitor] 80 mg PO HS 02/28/19 Calcium 250Mg/Vit-D 125 Units 1 combo PO BID 02/28/19 [Oscal 250 mg+D -] Carbamazepine 200 mg PO BID 02/28/19 Ceramides 1,3,6-11 [Cerave] 355 ml TP DAILY 02/28/19 Darbepoetin Odin in Polysorbat 100 mcg IJ MONTHLY 02/28/19 [Aranesp] Ferrous Gluconate [Ferate] 240 mg PO DAILY 02/28/19 Folic Acid 400 mcg PO DAILY 02/28/19 Gabapentin 600 mg PO BID 02/28/19 Lidocaine HCl [Aspercreme] 76.5 gm TP DAILY 02/28/19 Metoprolol Succinate [Toprol Xl] 100 mg PO DAILY 02/28/19 Niacin 500 mg PO HS 02/28/19 Pregabalin [Lyrica] 50 mg PO BID 02/28/19 Rivaroxaban [Xarelto -] 20 mg PO DAILY 02/28/19 Tamsulosin HCl [Flomax] 0.8 mg PO DAILY 02/28/19 Microbiology 02/27/19 11:20 Urine - Urine - Catheterized Urine Culture - Preliminary Beta Hem Streptococcus Group G CT: large chronic left posterior temporal cortical/subcortical infarct, punctuate left basal ganglia infarcts which are propably chronic moderate periventricular chronic microvascular ischemic changes ASSESSMENT/PLAN: Patient is a 78 year old male with PMHx of old CVA , HTN, Afib on Xarelto, COPD , and generalized weakness presented from [facility] on with sudden onset right sided hemiparesis, aphasic, dysphagia . #Acute Right sided hemiparesis possible with left MCA ; failed dysphagia screen in ED, Head CT and CTA findings described above Dr Mills on the case , Echo: mitral valve appearance suggests prior valve repair. no mitral valve regurgitation , mild TR, aortic valve is not well visualized, aortic stenosis severe with CHRISTINA 0.7cm2 with mean gradient of 24mmhg. No pericardial effusion . Carotid US: no doppler high grade carotid artery stenosis Fall and seizure precautions, speech PT #Acute UTI ; urinary cx pending; 1gm of rocephin continue # Anemia is above 10, will hold aranespt . DVT: SCDs
--- NOTE | 2019-03-01 11:19 | PN ---
Progress Note (short form) - Note Progress Note: 78 year old male history of Stroke, htn, Afib, COPD. Patient is [facility] patient and came with right sided sided weakness and difficulty swallowing. Patient is sually talkative as per nursing notes. Paitent is able to walk and talkative. Patient right sided seems to be improved. Paitent bp was 175/53. Patient is confused and agitated and should not be able to tolerate mri. Patient seems to have head deviated to left side. NEUROLOGICAL EXAMINATION Alert oriented x 0 , neck is supple afebrile bp He seems to be agitated and moving in bed vigrously patient is aphasic and not able to express, and jeremy to follow command with geture He seems to have head deviated to left side ? conjugate eye deviation eomi, pupils reactive moving all extremity ct head showed large post temporal infarct cta head unremarkable, carotid ultrasound report appreciated. Assessment/Plan78 year old male with history of atrial fibrillation and old stroke came with right hemiparesis and dysphagia and hemiparesis seems to be resolved, patient still have aphasia, ( apparently there is chagne in his status from baseline) . Most likley let mca stroke. He failed swallowing test,k could not get mri fof brain Plan: would do repeat ct head - continue statin and anticoagulation dvt prophylaxis, speech PT will conitinue to follow up Thanking you so much Tonio
[2019-03-01] MEDS: RIVAROXABAN 20 MG TABLET PO SCH (18:37)
--- NOTE | 2019-03-01 18:46 | PN ---
Physical Exam: SUBJECTIVE: Patient seen and examined at the bedside, patient uncooperative with exam. OBJECTIVE: Vital Signs Period Temp Pulse Resp BP Sys/Charles Pulse Ox Last 24 Hr 97.2 F-97.8 F 60-75 17-18 140-153/62-89 98-98 GENERAL: The patient is awake, alert, and fully oriented, in no acute distress. HEAD: Normal with no signs of trauma. EYES: PERRL, extraocular movements intact, sclera anicteric, conjunctiva clear. ENT: Ears normal, oropharynx clear without exudates, moist mucous membranes. NECK: Trachea midline, full range of motion, supple. LUNGS: Breath sounds equal, clear to auscultation bilaterally, no wheezes, no crackles, no accessory muscle use. HEART: Regular rate and rhythm, S1, S2 without murmur, rub or gallop. ABDOMEN: Soft, nontender, nondistended, normoactive bowel sounds, no guarding, no rebound, no hepatosplenomegaly, no masses. EXTREMITIES: 2+ pulses, warm, well-perfused, no edema. NEUROLOGICAL: Cranial nerves II through XII grossly intact. Normal speech, gait not observed. PSYCH: Normal mood, normal affect. SKIN: Warm, dry, normal turgor, no rashes or lesions noted Laboratory Results - last 24 hr 03/01/19 03/01/19 06:05 06:05 WBC 11.2 H RBC 3.31 L Hgb 10.4 L Hct 31.9 L MCV 96.2 H MCH 31.5 MCHC 32.8 RDW 16.0 H Plt Count 246 MPV 9.4 Absolute Neuts (auto) 9.7 H Neutrophils % 86.5 H Lymphocytes % 3.3 L D Monocytes % 9.5 Eosinophils % 0.2 D Basophils % 0.5 Nucleated RBC % 0 Sodium 136 Potassium 4.2 Chloride 103 Carbon Dioxide 25 Anion Gap 8 BUN 15.6 Creatinine 0.8 Est GFR (CKD-EPI)AfAm 98.47 Est GFR (CKD-EPI)NonAf 84.96 Random Glucose 104 Calcium 8.9 Phosphorus 3.0 Magnesium 1.9 TSH 1.40 Active Medications Generic Name Dose Route Start Last Admin Trade Name Freq PRN Reason Stop Dose Admin Atorvastatin Calcium 80 mg 02/28/19 22:00 02/28/19 21:20 Lipitor - PO Not Given HS AMINA Sodium Chloride 1,000 mls @ 42 mls/hr 02/27/19 22:30 02/28/19 22:35 Normal Saline - IV Not Given ASDIR AMINA Ceftriaxone Sodium 1 gm/ 50 mls @ 100 mls/hr 03/01/19 10:00 03/01/19 09:45 Dextrose IVPB 100 mls/hr DAILY [facility] Administration Rivaroxaban 20 mg 02/28/19 18:00 03/01/19 18:37 Xarelto PO Not Given DAILY@1800 [facility] ASSESSMENT/PLAN: 78 year old male with PMH of CVA, HTN, Afib on Xarelto, COPD, and generalized weakness presenting from [facility] on [address] with sudden onset right sided weakness and dysphagia with slurred speech #Acute Right sided weakness r/o ischemic stroke Admitted to tele failed dysphagia screen in ED, Head CT and CTA findings described above Dr Mills consulted, Echo ordered, carotid U/S ordered, Speech and Swallow eval , neurochecks Q2h, PT ordered continue lipitor 80mg hs, continue home Xarelto Fall and seizure precautions UTI with Positive UA urine culture pending continue 1gm of rocephin Anemia poss chronic due to med list - above 10, will hold aranespt DVT- SCDs Visit type - Emergency Visit Emergency Visit: Yes ED Registration Date: 02/27/19 Care time: The patient presented to the Emergency Department on the above date and was hospitalized for further evaluation of their emergent condition. - New Patient This patient is new to me today: Yes Date on this admission: 03/01/19 - Critical Care Critical Care patient: No - Discharge Referral Referred to [facility] Med [facility] No ATTENDING PHYSICIAN STATEMENT I saw and evaluated the patient. I reviewed the resident's note and discussed the case with the resident. I agree with the resident's findings and plan as documented. SUBJECTIVE: OBJECTIVE: ASSESSMENT AND PLAN:
[2019-03-01] MEDS: ATORVASTATIN CA 80 MG TABLET (FP) PO SCH (21:35)
[2019-03-01] MEDS: SODIUM CHLORIDE 1,000 ML IV SCH (21:35)
[2019-03-02 07:54] LABS: ALBUMIN 3.4 g/dl (3.4-5.0); BILIRUBIN,TOTAL 0.6 mg/dL (0.2-1); BLOOD UREA NITROGEN 17.4 mg/dL (7-18); CALCIUM 8.6 mg/dL (8.5-10.1); CREATININE 0.7 mg/dL (0.55-1.3); POTASSIUM 4.1 mmol/L (3.5-5.1); TOT PROT 7.2 g/dl (6.4-8.2)
[2019-03-02 08:05] LABS: BASO % 0.5 % (0-2.0); EOS % 0.1 % (0-4.5); HEMATOCRIT 31.9 % (35.4-49); HEMOGLOBIN 10.3 GM/dL (11.7-16.9); LYMPH % 4.1 % (8-40); MCHC 32.1 g/dl (32.0-35.9); MEAN CELL VOLUME 96.5 fl (80-96); MEAN PLT VOLUME 9.8 fl (7.5-11.1); MONO % 9.9 % (3.8-10.2); NEUT % 85.4 % (42.8-82.8); PLATELET COUNT 233 K/MM3 (134-434); RBC 3.31 M/mm3 (4.00-5.60); RDW 16.1 % (11.9-15.9); WHITE BLOOD COUNT 10.5 K/mm3 (4.0-10.0)
--- NOTE | 2019-03-02 10:07 | PN ---
Progress Note (short form) - Note Progress Note: 78 year old male history of Stroke, htn, Afib, COPD. Patient is [place] patient and came with right sided sided weakness and difficulty swallowing. Patient is sually talkative as per nursing notes. Paitent is able to walk and talkative. Patient right sided seems to be improved. Paitent bp was 175/53. Patient is confused and agitated and should not be able to tolerate mri. spoke to nursing staff in ED. There is no deviation was seen, patient NEUROLOGICAL EXAMINATION Alert oriented x 0 , neck is supple afebrile bp He seems to be agitated and moving in bed vigrously patient is aphasic and not able to express, and jeremy to follow command with geture He seems to have head deviated to left side ? conjugate eye deviation eomi, pupils reactive moving all extremity ct head showed large post temporal infarct CTA head unremarkable, carotid ultrasound report appreciated. Assessment/Plan78 year old male with history of atrial fibrillation and old stroke came with right hemiparesis and dysphagia and hemiparesis seems to be resolved, patient still have aphasia, ( apparently there is chagne in his status from baseline) . Most likley let mca stroke. He failed swallowing test, could not get mri fof brain Plan: repeat ct head - continue statin and anticoagulation dvt prophylaxis, PT -supportive care - waiting for speech , consider NG Tube Placement Thanking you so much Tonio
[2019-03-02] MEDS ORDERED: CEFTRIAXONE 1 GM/50 ML BAG ONE (10:16)
[2019-03-02] MEDS: CEFTRIAXONE 1 GM in DEXTROSE 5%-WATER - 50 ML IVPB SCH (10:32)
--- NOTE | 2019-03-02 10:54 | CONSULT ---
Admitting History and Physical - Primary Care Physician PCP: Macrina Fleming - Admission History of Present Illness: 78 year old male [facility] resident, baseline ambulatory/verbal per EMR, with history of Stroke, htn, Afib, COPD, admitted with right sided sided weakness and difficulty swallowing. ct head- showed large post temporal infarct First admission to [facility]. Seen in ED, room 4. History Source: Medical Record Limitations to Obtaining History: Clinical Condition, Other (Aphasia) - Advance Directives Advance Directives: Yes: DNR - Smoking History Smoking history: Unknown if ever smoked Have you smoked in the past 12 months: No - Alcohol/Substance Use Hx Alcohol Use: No History - Admission Reason For Visit: CONCERN ABOUT STROKE WITHOUT DIAGNOSIS,DYSPHAGIA - Diagnostics X-ray: Report Reviewed CT Scan: Report Reviewed MRI: Pending - General Mental Status: Awake and Alert, Confused (No functional communication-Global Aphasia), Flat Affect Attention: Moderate Impairment Ability to Follow Directions: Poor Head/Neck Control: Needs Assist Speech Evaluation - Communication Primary Language: PORTUGUESE Communication: Yes: Non-Communicable Oral Expression Ability: Yes: Severe Impairment, Non-Verbal (vocal) - Speech Production Able to Make Needs Known: Yes: Severely Impaired Intelligibility: Yes: Severely Impaired - Speech Characteristics Voice Loudness: Normal Voice Pitch: Yes: Normal Voice Phonatory-based Quality: Yes: Normal Nasal Resonance: Normal - Language/Auditory Comprehension Observation: Able to respond to yes/no queries: No, Comprehends Conversational Speech: No - Language/Verbal Expression Aphasia: Yes: Nonfluent Able to Respond to Simple Queries: Yes: Severely Impaired Able to Communicate Wants and Needs: Yes: Severely Impaired Functional Communication Status: Yes: Severely Impaired - Swallow Evaluation/Bedside Assessment Current Nutritional Intake: NPO Oral Secretions: Yes: WFL Dentition: Yes: Edentulous Lingual Movement: Symmetric Laryngeal Movement: Able to Palpate (seems delayed bur brisk. Delayed cough with 1/3 tsp applesauce) Bolus Size: Small Timing of Swallow: Delayed Coughing/Throat Clear: Yes Recommendations - Speech Evaluation, Impression/Plan Impression: No functional communication-Global Aphasia. Follows no commands, verbal/gestural. Vocal, no verbalizations spontaneously or elicited. Right neglect/hemianopsis. Occasionally establishes eye contact from the left, but jumped/flinched with spoon placed to lips to assess swallowing. Visual function ? Baseline? - Disposition Discharge to: To be Determined - Dysphagia Impressions/Plan Swallowing Skills: Impaired Dysphagia Impressions: Suspect Aspiration *Silent aspiration: cannot be R/O at bedside Dysphagia Treatment Plan: Other (Elevate HOB, mouthcare) Recommendations: Other (Consider NGT, elevate HOB) - Recommendations Diet Consistency: NPO Liquids: NPO
[2019-03-02 12:27] LABS: ANISOCYTOSIS 1+; MACROCYTOSIS 1+; PLATELET ESTIMATE NORMAL
--- NOTE | 2019-03-02 14:25 | PN ---
Physical Exam: SUBJECTIVE: Patient seen and examined. Pt more awake but dysarthric OBJECTIVE: Vital Signs Period Temp Pulse Resp BP Sys/Charles Pulse Ox Last 24 Hr 97.8 F-98.2 F 69-78 17-21 139-162/42-89 96-99 GENERAL: The patient is awake, alert, and fully oriented, in no acute distress. HEAD: Normal with no signs of trauma. EYES: PERRL, extraocular movements intact, sclera anicteric, conjunctiva clear. No ptosis. ENT: Ears normal, nares patent, oropharynx clear without exudates, moist mucous membranes. NECK: Trachea midline, full range of motion, supple. LUNGS: Breath sounds equal, clear to auscultation bilaterally, no wheezes, no crackles, no accessory muscle use. HEART: Regular rate and rhythm, S1, S2 without murmur, rub or gallop. ABDOMEN: Soft, nontender, nondistended, normoactive bowel sounds, no guarding, no rebound, no hepatosplenomegaly, no masses. EXTREMITIES: 2+ pulses, warm, well-perfused, no edema. NEUROLOGICAL: Cranial nerves II through XII grossly intact. Normal speech, gait not observed. PSYCH: Normal mood, normal affect. SKIN: Warm, dry, normal turgor, no rashes or lesions noted Laboratory Results - last 24 hr 03/02/19 03/02/19 05:50 05:50 WBC 10.5 H RBC 3.31 L Hgb 10.3 L Hct 31.9 L MCV 96.5 H MCH 31.0 MCHC 32.1 RDW 16.1 H Plt Count 233 MPV 9.8 Absolute Neuts (auto) 9.0 H Neutrophils % 85.4 H Neutrophils % (Manual) 80.4 Band Neutrophils % 5.2 Lymphocytes % 4.1 L D Lymphocytes % (Manual) 5.2 L Monocytes % 9.9 Monocytes % (Manual) 8 Eosinophils % 0.1 Eosinophils % (Manual) 0.0 Basophils % 0.5 Basophils % (Manual) 0.0 Myelocytes % (Man) 1 Promyelocytes % (Man) 0 Blast Cells % (Manual) 0 Nucleated RBC % 0 Metamyelocytes 0 Hypochromia 0 Platelet Estimate Normal Polychromasia 0 Poikilocytosis 0 Anisocytosis 1+ Macrocytosis 1+ Sodium 139 Potassium 4.1 Chloride 106 Carbon Dioxide 25 Anion Gap 8 BUN 17.4 Creatinine 0.7 Est GFR (CKD-EPI)AfAm 104.03 Est GFR (CKD-EPI)NonAf 89.76 Random Glucose 89 Calcium 8.6 Total Bilirubin 0.6 AST 41 H ALT 20 Alkaline Phosphatase 148 H Total Protein 7.2 Albumin 3.4 Active Medications Generic Name Dose Route Start Last Admin Trade Name Freq PRN Reason Stop Dose Admin Atorvastatin Calcium 80 mg 02/28/19 22:00 03/01/19 21:35 Lipitor - PO Not Given HS AMINA Sodium Chloride 1,000 mls @ 42 mls/hr 02/27/19 22:30 03/01/19 21:35 Normal Saline - IV Not Given ASDIR AMINA Ceftriaxone Sodium 1 gm/ 50 mls @ 100 mls/hr 03/01/19 10:00 03/02/19 10:32 Dextrose IVPB 100 mls/hr DAILY AMINA Administration Rivaroxaban 20 mg 02/28/19 18:00 03/01/19 18:37 Xarelto PO Not Given DAILY@1800 [facility] CT negative for acute infarct or bleed just 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 CTA done and read by Dr Mills who noted microvascular low flow state to the Left hemisphere with absent macrovascular disease ASSESSMENT/PLAN: 78 year old male with PMH of CVA, HTN, Afib on Xarelto, COPD, and generalized weakness presenting from [facility] on [address] with sudden onset right sided weakness and dysphagia with slurred speech Acute Right sided weakness poss due to ischemic stroke Admitted to [facility] Head CT and CTA findings decribed above monitor BP Dr Mills consulted and repeat ct head and continue statin and anticoagulation Echo showed EF 55-60%,mod-severe mitral valve thickening,mild TR, severe with CHRISTINA 0.7cm2, mean gradient of 24mmHg carotid U/S no acute findings Per neuro repeat head CT , might consider NG tube Speech and Swallow eval rec keeping Pt NPO. Started on clinimix @75cc/hr. neurochecks Q2h PT ordered will give home dose lipitor 80 and Xarelto once able. PEG ? NG tube? will reach out to family for goals of care Fall and seizure precautions UTI with Positive UA urine culture positive for beta hem strep group G on rocephin Anemia poss chronic due to med list above 10, will hold aranespt DVT Xarelto once keegan PO SCDs Visit type - Emergency Visit Emergency Visit: Yes ED Registration Date: 02/27/19 Care time: The patient presented to the Emergency Department on the above date and was hospitalized for further evaluation of their emergent condition. - New Patient This patient is new to me today: No - Critical Care Critical Care patient: No - Discharge Referral Referred to [facility] Med P.C.: No ATTENDING PHYSICIAN STATEMENT I saw and evaluated the patient. I reviewed the resident's note and discussed the case with the resident. I agree with the resident's findings and plan as documented. SUBJECTIVE: OBJECTIVE: ASSESSMENT AND PLAN:
--- NOTE | 2019-03-02 14:32 | PN ---
Teaching Attending Note Name of Resident: Jenniffer Winslow ATTENDING PHYSICIAN STATEMENT I saw and evaluated the patient. I reviewed the resident's note and discussed the case with the resident. I agree with the resident's findings and plan as documented. SUBJECTIVE: Patient is slightely better, more awake ,still difficulty with speech. OBJECTIVE: Vital Signs Temperature 98.2 F 03/02/19 13:50 Pulse Rate 75 03/02/19 13:50 Respiratory Rate 18 03/02/19 13:50 Blood Pressure 141/77 03/02/19 13:50 O2 Sat by Pulse Oximetry (%) 98 03/02/19 13:50 GENERAL: The patient is lying in bed, not aware of the surrounding, in NAD. HEAD: Normal with no signs of trauma. EYES: eyes open . stares to the left side. sclera anicteric, conjunctiva clear. ENT: Ears normal, oropharynx clear without exudates, moist mucous membranes. NECK: Trachea midline, full range of motion, supple. LUNGS: decreased Breath sounds BL, no wheezes, no crackles, no accessory muscle use. HEART: irregularly-irregular rate of 66, S1, S2 positive, PENELOPE 3/6 , no rub or gallop. ABDOMEN: Soft, NT, ND, +BS, no guarding, no rebound, no hepatosplenomegaly, no masses. EXTREMITIES: 2+ pulses, warm, well-perfused, no edema. NEUROLOGICAL: Cranial nerves II through XII grossly intact. gait not observed. aphasic. PSYCH: unaware of his sorroundings , non verbal SKIN: Warm, dry, normal turgor, no rashes or lesions noted CBCD WBC 10.5 K/mm3 (4.0-10.0) H 03/02/19 05:50 RBC 3.31 M/mm3 (4.00-5.60) L 03/02/19 05:50 Hgb 10.3 GM/dL (11.7-16.9) L 03/02/19 05:50 Hct 31.9 % (35.4-49) L 03/02/19 05:50 MCV 96.5 fl (80-96) H 03/02/19 05:50 MCHC 32.1 g/dl (32.0-35.9) 03/02/19 05:50 RDW 16.1 % (11.9-15.9) H 03/02/19 05:50 Plt Count 233 K/MM3 (134-434) 03/02/19 05:50 MPV 9.8 fl (7.5-11.1) 03/02/19 05:50 CMP Sodium 139 mmol/L (136-145) 03/02/19 05:50 Potassium 4.1 mmol/L (3.5-5.1) 03/02/19 05:50 Chloride 106 mmol/L (98-107) 03/02/19 05:50 Carbon Dioxide 25 mmol/L (21-32) 03/02/19 05:50 Anion Gap 8 MMOL/L (8-16) 03/02/19 05:50 BUN 17.4 mg/dL (7-18) 03/02/19 05:50 Creatinine 0.7 mg/dL (0.55-1.3) 03/02/19 05:50 Random Glucose 89 mg/dL (74-106) 03/02/19 05:50 Calcium 8.6 mg/dL (8.5-10.1) 03/02/19 05:50 Total Bilirubin 0.6 mg/dL (0.2-1) 03/02/19 05:50 AST 41 U/L (15-37) H 03/02/19 05:50 ALT 20 U/L (13-61) 03/02/19 05:50 Alkaline Phosphatase 148 U/L (45-117) H 03/02/19 05:50 Total Protein 7.2 g/dl (6.4-8.2) 03/02/19 05:50 Albumin 3.4 g/dl (3.4-5.0) 03/02/19 05:50 CARDIAC ENZYMES Creatine Kinase 27 U/L (26-308) 02/27/19 11:00 Troponin I 0.04 ng/ml (0.00-0.05) 02/28/19 06:15 Current Medications Generic Name Dose Route Start Last Admin Trade Name Freq PRN Reason Stop Dose Admin Atorvastatin Calcium 80 mg 02/28/19 22:00 03/01/19 21:35 Lipitor - PO Not Given HS AMINA Sodium Chloride 1,000 mls @ 42 mls/hr 02/27/19 22:30 03/01/19 21:35 Normal Saline - IV Not Given ASDIR AMINA Ceftriaxone Sodium 1 gm/ 50 mls @ 100 mls/hr 03/01/19 10:00 03/02/19 10:32 Dextrose IVPB 100 mls/hr DAILY [facility] Administration Rivaroxaban 20 mg 02/28/19 18:00 03/01/19 18:37 Xarelto PO Not Given DAILY@1800 [facility] Home Medications Medication Instructions Recorded Acetaminophen [Tylenol] 650 mg PO Q8H 02/28/19 Atorvastatin Ca [Lipitor] 80 mg PO HS 02/28/19 Calcium 250Mg/Vit-D 125 Units 1 combo PO BID 02/28/19 [Oscal 250 mg+D -] Carbamazepine 200 mg PO BID 02/28/19 Ceramides 1,3,6-11 [Cerave] 355 ml TP DAILY 02/28/19 Darbepoetin Odin in Polysorbat 100 mcg IJ MONTHLY 02/28/19 [Aranesp] Ferrous Gluconate [Ferate] 240 mg PO DAILY 02/28/19 Folic Acid 400 mcg PO DAILY 02/28/19 Gabapentin 600 mg PO BID 02/28/19 Lidocaine HCl [Aspercreme] 76.5 gm TP DAILY 02/28/19 Metoprolol Succinate [Toprol Xl] 100 mg PO DAILY 02/28/19 Niacin 500 mg PO HS 02/28/19 Pregabalin [Lyrica] 50 mg PO BID 02/28/19 Rivaroxaban [Xarelto -] 20 mg PO DAILY 02/28/19 Tamsulosin HCl [Flomax] 0.8 mg PO DAILY 02/28/19 02/27/19 11:20 Urine - Urine - Catheterized Urine Culture - Preliminary Beta Hem Streptococcus Group G CT: large chronic left posterior temporal cortical/subcortical infarct, punctuate left basal ganglia infarcts which are propably chronic moderate periventricular chronic microvascular ischemic changes ASSESSMENT/PLAN: Patient is a 78 year old male with PMHx of old CVA , HTN, Afib on Xarelto, COPD , and generalized weakness presented from [facility] on [address] with sudden onset right sided hemiparesis, aphasic, dysphagia . #Acute Right sided hemiparesis possible with left MCA ; failed dysphagia screen in ED, Head CT and CTA findings described above Dr Mills on the case , Echo: mitral valve appearance suggests prior valve repair. no mitral valve regurgitation , mild TR, aortic valve is not well visualized, aortic stenosis severe with CHRISTINA 0.7cm2 with mean gradient of 24mmhg. No pericardial effusion . Going to MRI tonight for further evaluation. Carotid US: no doppler high grade carotid artery stenosis Fall and seizure precautions, speech PT #Acute UTI ; urinary cx as above continue 1gm of rocephin # Anemia is above 10, will hold aranespt . DVT: SCDs
--- NOTE | 2019-03-02 15:14 | ECHO ---
Name: TIMUR CRAIG Exam:Adult Echocardiogram Study Date: 03/02/2019 11:52 AM Age: 78 yrs Reason For Study: R/O STROKE Height: 70 in Weight: 165 lb BSA: 1.9 m2 MMode/2D Measurements & Calculations IVSd: 1.1 cm Ao root diam: 2.6 cm LVIDd: 4.4 cm LVIDs: 3.1 cm LVPWd: 0.93 cm EDV(Teich): 89.3 ml LVOT diam: 1.9 cm ESV(Teich): 36.6 ml Doppler Measurements & Calculations MV E max scout: 173.5 cm/sec MVA(VTI): 0.93 cm2 MV A max scout: 114.9 cm/sec MV V2 max: 209.6 cm/sec MV E/A: 1.5 MV max P.6 mmHg MV dec time: 0.33 sec MV V2 mean: 120.2 cm/sec MV mean P.8 mmHg MV V2 VTI: 59.3 cm MV P1/2t max scout: 209.6 cm/sec Ao V2 max: 327.0 cm/sec MV P1/2t: 110.3 msec Ao max P.0 mmHg MVA(P1/2t): 2.0 cm2 Ao V2 mean: 216.6 cm/sec MV dec slope: 556.7 cm/sec2 Ao mean P.2 mmHg Ao V2 VTI: 67.0 cm CHRISTINA(I,D): 0.82 cm2 AI P1/2t: 447.3 msec CHRISTINA(V,D): 0.85 cm2 AI max scout: 353.8 cm/sec LV V1 max P.5 mmHg AI max P.1 mmHg LV V1 mean P.8 mmHg LV V1 max: 94.1 cm/sec AI dec slope: 231.7 cm/sec2 LV V1 mean: 60.6 cm/sec LV V1 VTI: 18.6 cm SV(LVOT): 55.0 ml TR max scout: 260.6 cm/sec TR max P.2 mmHg PI end-d scout: 81.9 cm/sec Med Peak E' Scout: 3.5 cm/sec Med E/e': 49.9 Lat Peak E' Scout: 7.4 cm/sec Lat E/e': 23.4 Procedure A complete two-dimensional transthoracic echocardiogram was performed (2D, M-mode, Doppler and color flow Doppler). Technically limited study. Left Ventricle The left ventricle is normal in size. Left ventricular systolic function is normal. Ejection Fraction = 55- 60%. No regional wall motion abnormalities noted. Right Ventricle The right ventricle is not well visualized. Atria The left atrium is not well visualized. Right atrium not well visualized. Mitral Valve There is moderate to severe mitral valve thickening. Mitral valve appears repaired. Clinical correlat ion is recommended. There is no mitral regurgitation noted. Tricuspid Valve The tricuspid valve is normal in structure and function. There is mild tricuspid regurgitation. Aortic Valve The aortic valve is not well visualized. Doppler interrogation suggests severe aortic stenosis with A VA 0.9 cm2 and mean gradient of 24 mmHg. DI (dimensionless index) is 0.25. No aortic regurgitation is presen t. Pulmonic Valve The pulmonic valve is not well visualized. Great Vessels The aortic root is normal size. Pericardium/Pleura There is no pericardial effusion. Interpretation Summary Technically limited study The left ventricle is normal in size. Left ventricular systolic function is normal. No regional wall motion abnormalities noted. Ejection Fraction = 55-60%. The right ventricle is not well visualized. There is moderate to severe mitral valve thickening. Mitral valve appearance suggests prior valve repair. Clinical correlation is recommended There is no mitral regurgitation noted. There is mild tricuspid regurgitation. The aortic valve is not well visualized. Doppler interrogation suggests severe aortic stenosis with CHRISTINA 0.7 cm2 and mean gradient of 24 mmHg. DI (dimensionless index) is 0.25 There is no pericardial effusion. Previous study is not available for comparison. Clinical correlation is recommended Anant Morelos MD 03/02/2019 03:13 PM
[2019-03-02] MEDS: RIVAROXABAN 20 MG TABLET PO SCH (17:40)
[2019-03-02] MEDS: AMINO ACIDS 4.25%/D5W 1,000 ML IV SCH (18:12)
[2019-03-02] MEDS: SODIUM CHLORIDE 1,000 ML IV SCH (22:23)
[2019-03-02] MEDS: ATORVASTATIN CA 80 MG TABLET (FP) PO SCH (22:23)
[2019-03-03 06:45] LABS: BASO % 0.7 % (0-2.0); EOS % 0.1 % (0-4.5); HEMATOCRIT 30.6 % (35.4-49); HEMOGLOBIN 10.2 GM/dL (11.7-16.9); LYMPH % 2.1 % (8-40); MCH 31.4 pg (25.7-33.7); MCHC 33.3 g/dl (32.0-35.9); MEAN CELL VOLUME 94.4 fl (80-96); MONO % 12.5 % (3.8-10.2); NEUT % 84.6 % (42.8-82.8); PLATELET COUNT 220 K/MM3 (134-434); RBC 3.24 M/mm3 (4.00-5.60); RDW 15.8 % (11.9-15.9); WHITE BLOOD COUNT 14.6 K/mm3 (4.0-10.0)
[2019-03-03 07:14] LABS: BLOOD UREA NITROGEN 21.3 mg/dL (7-18); CALCIUM 8.4 mg/dL (8.5-10.1); CREATININE 0.7 mg/dL (0.55-1.3); POTASSIUM 3.5 mmol/L (3.5-5.1)
--- NOTE | 2019-03-03 12:07 | PN ---
Progress Note, [employer] - Note Progress Note: CT head, [id number] left infarct Now following 1 step commands. yes/no confusion. Apraxic/aphasic, unable to respond to simple questions, repeat, count in unison. Some social speech produced "[email or web address]" Selected Entries 03/02/19 03/02/19 03/02/19 13:50 14:00 16:34 Temperature 98.2 F 98.7 F 98.9 F 03/02/19 03/03/19 03/03/19 20:45 01:53 06:00 Temperature 97.6 F 98.1 F 97.6 F 03/03/19 09:03 Temperature 98.9 F Laboratory Tests 02/27/19 03/01/19 03/02/19 11:00 06:05 05:50 WBC 7.4 11.2 H 10.5 H 03/03/19 05:20 WBC 14.6 H Baseline speech/cognitive, ambulatory status at [facility]? New onset? Transfer summary unclear. Now moving UE's. Aphasic Apraxic. Upper airway congestion, weak cough. Continue NPO. Has Clinimix IV. Mouth care. Consider yankower suction christiano-pharynx. Consider repeat CXR
[2019-03-03] MEDS ORDERED: cefTRIAXone SODIUM 1 GM VIAL ONE (12:33)
[2019-03-03] MEDS ORDERED: DEXTROSE 5%-WATER - 50 ML IVPB ONE (12:34)
[2019-03-03] MEDS: AMINO ACIDS 4.25%/D5W 1,000 ML IV SCH ×2 (12:39→17:52)
[2019-03-03] MEDS: CEFTRIAXONE 1 GM in DEXTROSE 5%-WATER - 50 ML IVPB SCH (12:39)
--- NOTE | 2019-03-03 13:45 | PN ---
Physical Exam: SUBJECTIVE: Patient seen and examined OBJECTIVE: Vital Signs Period Temp Pulse Resp BP Sys/Charles Pulse Ox Last 24 Hr 97.6 F-98.9 F 67-88 18-20 141-166/57-77 98-98 GENERAL: The patient is awake, alert, and fully oriented, in no acute distress. HEAD: Normal with no signs of trauma. EYES: PERRL, extraocular movements intact, sclera anicteric, conjunctiva clear. No ptosis. ENT: Ears normal, nares patent, oropharynx clear without exudates, moist mucous membranes. NECK: Trachea midline, full range of motion, supple. LUNGS: Breath sounds equal, clear to auscultation bilaterally, no wheezes, no crackles, no accessory muscle use. HEART: Regular rate and rhythm, S1, S2 without murmur, rub or gallop. ABDOMEN: Soft, nontender, nondistended, normoactive bowel sounds, no guarding, no rebound, no hepatosplenomegaly, no masses. EXTREMITIES: 2+ pulses, warm, well-perfused, no edema. NEUROLOGICAL: Cranial nerves II through XII grossly intact. Normal speech, gait not observed. PSYCH: Normal mood, normal affect. SKIN: Warm, dry, normal turgor, no rashes or lesions noted Laboratory Results - last 24 hr 03/03/19 03/03/19 05:20 05:20 WBC 14.6 H RBC 3.24 L Hgb 10.2 L Hct 30.6 L MCV 94.4 MCH 31.4 MCHC 33.3 RDW 15.8 Plt Count 220 MPV 10.0 Absolute Neuts (auto) 12.4 H Neutrophils % 84.6 H Lymphocytes % 2.1 L D Monocytes % 12.5 H Eosinophils % 0.1 Basophils % 0.7 Nucleated RBC % 0 Sodium 136 Potassium 3.5 Chloride 104 Carbon Dioxide 25 Anion Gap 7 L BUN 21.3 H Creatinine 0.7 Est GFR (CKD-EPI)AfAm 104.03 Est GFR (CKD-EPI)NonAf 89.76 Random Glucose 133 H Calcium 8.4 L Active Medications Generic Name Dose Route Start Last Admin Trade Name Freq PRN Reason Stop Dose Admin Aspirin 300 mg 03/03/19 13:45 Asa - RC DAILY AMINA Atorvastatin Calcium 80 mg 03/03/19 22:00 Lipitor - NGT HS AMINA Sodium Chloride 1,000 mls @ 42 mls/hr 02/27/19 22:30 03/02/19 22:23 Normal Saline - IV Not Given ASDIR AMINA Ceftriaxone Sodium 1 gm/ 50 mls @ 100 mls/hr 03/01/19 10:00 03/03/19 12:39 Dextrose IVPB 100 mls/hr DAILY AMINA Administration Amino Acids 1,000 mls @ 75 mls/hr 03/02/19 17:30 03/03/19 12:39 Clinimix - IV 75 mls/hr Q12H AMINA Administration Metoprolol Succinate 100 mg 03/03/19 10:00 Toprol Xl - PO DAILY AMINA Head CT negative for acute infarct or bleed just 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 CTA done and read by Dr Mills who noted microvascular low flow state to the Left hemisphere with absent macrovascular disease ASSESSMENT/PLAN: 78 year old male with PMH of CVA 2018, HTN, Afib on Xarelto, COPD, and generalized weakness presenting from [facility] on with sudden onset right sided weakness and dysphagia with slurred speech Acute Right sided weakness poss due to ischemic stroke Admitted to tele Head CT and CTA findings decribed above monitor BP 166/[address] showed Interval moderate to large nonhemorrhagic acute/subacute infarct in the left frontal lobe, laterally at the level of the haider radiata and centrum semiovale bilaterally extending to the high convexity. Correlate clinically and close follow-up CT scan or MRI of the brain is needed d/w Dr Mills : continue statin and start rectal ASA 300 mg Daily and anticoagulation in 2-3 days based on pt status Echo showed EF 55-60%,mod-severe mitral valve thickening,mild TR, severe with CHRISTINA 0.7cm2, mean gradient of 24mmHg carotid U/S no acute findings Per neuro might consider NG tube. Spoke with DC and they will bring dentures as per pt is unable to communicate w/o them. Speech and Swallow eval rec keeping Pt NPO. Started on clinimix @75cc/hr. neurochecks Q2h PT ordered lipitor 80 and Xarelto once able. PEG ? NG tube? will reassess after dentures Fall and seizure precautions UTI with Positive UA urine culture positive for beta hem strep group G on rocephin Anemia poss chronic due to med list above 10, will hold aranespt FEN clinimix @[facility] DVT SCDs Visit type - Emergency Visit Emergency Visit: Yes ED Registration Date: 02/27/19 Care time: The patient presented to the Emergency Department on the above date and was hospitalized for further evaluation of their emergent condition. - New Patient This patient is new to me today: No - Critical Care Critical Care patient: No - Discharge Referral Referred to [facility] Med P.C.: No ATTENDING PHYSICIAN STATEMENT I saw and evaluated the patient. I reviewed the resident's note and discussed the case with the resident. I agree with the resident's findings and plan as documented. SUBJECTIVE: OBJECTIVE: ASSESSMENT AND PLAN:
[2019-03-03] MEDS ORDERED: PT OWN MED DRAWER 7, Y5N ONE (15:17)
[2019-03-03] MEDS: ASPIRIN 300 MG SUPP.RECT RC SCH (17:01)
--- NOTE | 2019-03-03 21:32 | PN ---
Teaching Attending Note Name of Resident: Jenniffer Winslow ATTENDING PHYSICIAN STATEMENT I saw and evaluated the patient. I reviewed the resident's note and discussed the case with the resident. I agree with the resident's findings and plan as documented. SUBJECTIVE: Patient is more awake today and follows commands, alert. OBJECTIVE: Vital Signs Temperature 98.2 F 03/03/19 20:00 Pulse Rate 85 03/03/19 20:00 Respiratory Rate 20 03/03/19 20:00 Blood Pressure 144/71 03/03/19 20:00 O2 Sat by Pulse Oximetry (%) 98 03/03/19 08:58 GENERAL: The patient is lying in bed, is awake today , follows commands, in NAD. HEAD: Normal with no signs of trauma. EYES: EOMI, sclera anicteric, conjunctiva clear. ENT: Ears normal, oropharynx clear without exudates, moist mucous membranes. NECK: Trachea midline, full range of motion, supple. LUNGS: decreased Breath sounds BL, no wheezes, no crackles, no accessory muscle use. HEART: irregularly-irregular rate of 66, S1, S2 positive, PENELOPE 3/6 , no rub or gallop. ABDOMEN: Soft, NT, ND, +BS, no guarding, no rebound, no hepatosplenomegaly, no masses. EXTREMITIES: 2+ pulses, warm, well-perfused, no edema. NEUROLOGICAL: Cranial nerves II through XII grossly intact. gait not observed. motor 5/5 BL, mildly aphasic SKIN: Warm, dry, normal turgor, no rashes or lesions noted CBCD WBC 14.6 K/mm3 (4.0-10.0) H 03/03/19 05:20 RBC 3.24 M/mm3 (4.00-5.60) L 03/03/19 05:20 Hgb 10.2 GM/dL (11.7-16.9) L 03/03/19 05:20 Hct 30.6 % (35.4-49) L 03/03/19 05:20 MCV 94.4 fl (80-96) 03/03/19 05:20 MCHC 33.3 g/dl (32.0-35.9) 03/03/19 05:20 RDW 15.8 % (11.9-15.9) 03/03/19 05:20 Plt Count 220 K/MM3 (134-434) 03/03/19 05:20 MPV 10.0 fl (7.5-11.1) 03/03/19 05:20 CMP Sodium 136 mmol/L (136-145) 03/03/19 05:20 Potassium 3.5 mmol/L (3.5-5.1) 03/03/19 05:20 Chloride 104 mmol/L (98-107) 03/03/19 05:20 Carbon Dioxide 25 mmol/L (21-32) 03/03/19 05:20 Anion Gap 7 MMOL/L (8-16) L 03/03/19 05:20 BUN 21.3 mg/dL (7-18) H 03/03/19 05:20 Creatinine 0.7 mg/dL (0.55-1.3) 03/03/19 05:20 Random Glucose 133 mg/dL (74-106) H 03/03/19 05:20 Calcium 8.4 mg/dL (8.5-10.1) L 03/03/19 05:20 Total Bilirubin 0.6 mg/dL (0.2-1) 03/02/19 05:50 AST 41 U/L (15-37) H 03/02/19 05:50 ALT 20 U/L (13-61) 03/02/19 05:50 Alkaline Phosphatase 148 U/L (45-117) H 03/02/19 05:50 Total Protein 7.2 g/dl (6.4-8.2) 03/02/19 05:50 Albumin 3.4 g/dl (3.4-5.0) 03/02/19 05:50 CARDIAC ENZYMES Creatine Kinase 27 U/L (26-308) 02/27/19 11:00 Troponin I 0.04 ng/ml (0.00-0.05) 02/28/19 06:15 Current Medications Generic Name Dose Route Start Last Admin Trade Name Freq PRN Reason Stop Dose Admin Aspirin 300 mg 03/03/19 13:45 03/03/19 17:01 Asa - RC 300 mg DAILY AMINA Administration Atorvastatin Calcium 80 mg 03/03/19 22:00 Lipitor - NGT HS AMINA Sodium Chloride 1,000 mls @ 42 mls/hr 02/27/19 22:30 03/02/19 22:23 Normal Saline - IV Not Given ASDIR AMINA Ceftriaxone Sodium 1 gm/ 50 mls @ 100 mls/hr 03/01/19 10:00 03/03/19 12:39 Dextrose IVPB 100 mls/hr DAILY [facility] Administration Amino Acids 1,000 mls @ 75 mls/hr 03/02/19 17:30 03/03/19 17:52 Clinimix - IV 75 mls/hr Q12H AMINA Administration Metoprolol Succinate 100 mg 03/03/19 10:00 Toprol Xl - PO DAILY [facility] Home Medications Medication Instructions Recorded Acetaminophen [Tylenol] 650 mg PO Q8H 02/28/19 Atorvastatin Ca [Lipitor] 80 mg PO HS 02/28/19 Calcium 250Mg/Vit-D 125 Units 1 combo PO BID 02/28/19 [Oscal 250 mg+D -] Carbamazepine 200 mg PO BID 02/28/19 Ceramides 1,3,6-11 [Cerave] 355 ml TP DAILY 02/28/19 Darbepoetin Odin in Polysorbat 100 mcg IJ MONTHLY 02/28/19 [Aranesp] Ferrous Gluconate [Ferate] 240 mg PO DAILY 02/28/19 Folic Acid 400 mcg PO DAILY 02/28/19 Gabapentin 600 mg PO BID 02/28/19 Lidocaine HCl [Aspercreme] 76.5 gm TP DAILY 02/28/19 Metoprolol Succinate [Toprol Xl] 100 mg PO DAILY 02/28/19 Niacin 500 mg PO HS 02/28/19 Pregabalin [Lyrica] 50 mg PO BID 02/28/19 Rivaroxaban [Xarelto -] 20 mg PO DAILY 02/28/19 Tamsulosin HCl [Flomax] 0.8 mg PO DAILY 02/28/19 02/27/19 11:20 Urine - Urine - Catheterized Urine Culture - Preliminary Beta Hem Streptococcus Group G CT: large chronic left posterior temporal cortical/subcortical infarct, punctuate left basal ganglia infarcts which are propably chronic moderate periventricular chronic microvascular ischemic changes ASSESSMENT/PLAN: Patient is a 78 year old male with PMHx of old CVA , HTN, Afib on Xarelto, COPD , and generalized weakness presented from [facility] on [address] with sudden onset right sided hemiparesis, aphasic, dysphagia . #Acute /subacute large nonhemorrhagic frontal infarct. lipitor. rectal aspirin will johnathan for another repeat of CT since patient has large CVa , is high rsik for bleed. will follow Neurology recommendation. Repeat CT #Acute Right sided hemiparesis possible with left MCA ; failed dysphagia screen , will reevaluate again in am by Bre calles . Head CT and CTA findings described above. Dr Mills on the case , Echo: mitral valve appearance suggests prior valve repair. no mitral valve regurgitation , mild TR, aortic valve is not well visualized, aortic stenosis severe with CHRISTINA 0.7cm2 with mean gradient of 24mmhg. No pericardial effusion . Going to MRI tonight for further evaluation. Carotid US: no doppler high grade carotid artery stenosis Fall and seizure precautions, speech PT #Acute UTI ; urinary cx as above continue 1gm of rocephin # Anemia is above 10, will hold aranespt . DVT: SCDs discussed with the daughter Ina Casey IN DETAILS, please update her on a daily basis.
[2019-03-03] MEDS ORDERED: ENOXAPARIN NA (PORCINE) 80 MG/0.8 ML DISP.SYRIN SQ SCH (22:00)
[2019-03-03] MEDS: ATORVASTATIN CA 80 MG TABLET (FP) NGT SCH (22:27)
[2019-03-03] MEDS: SODIUM CHLORIDE 1,000 ML IV SCH (22:30)
[2019-03-04] MEDS: AMINO ACIDS 4.25%/D5W 1,000 ML IV SCH ×2 (05:30→22:18)
[2019-03-04 07:43] LABS: BASO % 0.4 % (0-2.0); EOS % 0.2 % (0-4.5); HEMOGLOBIN 10.4 GM/dL (11.7-16.9); LYMPH % 2.1 % (8-40); MCH 31.7 pg (25.7-33.7); MCHC 33.5 g/dl (32.0-35.9); MEAN CELL VOLUME 94.6 fl (80-96); MEAN PLT VOLUME 9.8 fl (7.5-11.1); MONO % 13.1 % (3.8-10.2); NEUT % 84.2 % (42.8-82.8); PLATELET COUNT 200 K/MM3 (134-434); RBC 3.28 M/mm3 (4.00-5.60); RDW 15.9 % (11.9-15.9); WHITE BLOOD COUNT 16.7 K/mm3 (4.0-10.0)
[2019-03-04 08:01] LABS: BLOOD UREA NITROGEN 24.5 mg/dL (7-18); CALCIUM 8.1 mg/dL (8.5-10.1); CREATININE 0.6 mg/dL (0.55-1.3); POTASSIUM 3.2 mmol/L (3.5-5.1)
--- NOTE | 2019-03-04 09:07 | PN ---
Progress Note (short form) - Note Progress Note: 78 year old male history of Stroke, htn, Afib, COPD. Patient is NH patient and came with right sided sided weakness and difficulty swallowing. Patient is sually talkative as per nursing notes. Paitent is able to walk and talkative. Patient right sided seems to be improved. Paitent bp was 175/53. Patient failed swallowing test, and He is NPO. Patient had repeat ct head and it showed new subacute left frontal lobe stroke There is no deviation was seen, patient is able to follow simple command NEUROLOGICAL EXAMINATION Alert oriented x 0 , neck is supple afebrile bp he seems more quiet and able to follow simple command patient is aphasic and not able to express, no conjugate eye deviation was identified eomi, pupils reactive moving all extremity ct head showed large post temporal infarct CTA head unremarkable, carotid ultrasound report appreciated. repeat ct head on march 03 showed large subacute left frontal lobe infarct Assessment/Plan78 year old male with history of atrial fibrillation and old stroke came with right hemiparesis and dysphagia and hemiparesis seems to be resolved, patient still have aphasia, ( apparently there is chagne in his status from baseline) . a new subacute left frontal lobe infarct idenfied He failed swallowing test Plan: hold anticoagulation for few more days . - continue statin and statin dvt prophylaxis, PT -supportive care consider ng tube placement Thanking you so much Tonio
[2019-03-04] MEDS ORDERED: cefTRIAXone SODIUM 1 GM VIAL ONE (10:08)
[2019-03-04] MEDS ORDERED: DEXTROSE 5%-WATER - 50 ML IVPB ONE (10:09)
[2019-03-04] MEDS: CEFTRIAXONE 1 GM in DEXTROSE 5%-WATER - 50 ML IVPB SCH (10:19)
--- NOTE | 2019-03-04 11:26 | PN ---
Progress Note, MACHINIST TOOL AND DIE - Note Progress Note: Auditory comprehension of 1 step commands improving. Yes/No confusion. Social speech yes, alright. Rare repetition of words hello, bye, 1,2 only Still requiring suctioning to clear upper airway secretions. Vocal quality wet/ gurgly intermittently. Assessed with 1/3 tsp applesauce twice. Very delayed swallow onset >10 sec with repeated verbal cues to swallow. Voice wet, brief throat clear. Encouraged to cough/suctioned with Yankower christiano-pharyngeally with secretions/applesauce suctioned successfully with euphonic voice resulting. Symptoms c/w aspiration CXR noted. WBC elevated. Selected Entries 03/04/19 03/04/19 03/04/19 01:34 06:00 11:04 Temperature 98.2 F 97.4 F L 97.5 F L Laboratory Tests 03/01/19 03/02/19 03/03/19 06:05 05:50 05:20 WBC 11.2 H 10.5 H 14.6 H 03/04/19 07:26 WBC 16.7 H MBS not indicated yet as pt clearly aspirating on secretions and limited po trials. Consider review of pt's end of life wishes with HCP. Pt is full code. TF? NGT temporarily vs PEG.
[2019-03-04 11:49] LABS: PLATELET ESTIMATE NORMAL
[2019-03-04] MEDS ORDERED: PROCHLORPERAZINE INJECTION 10 MG/2 ML VIAL IVPB PRN (13:10)
[2019-03-04] MEDS ORDERED: PT OWN MED DRAWER 7, Y5N ONE ×2 (13:50→21:30)
--- NOTE | 2019-03-04 14:57 | PN ---
Physical Exam: SUBJECTIVE: Patient seen and examined. Pt afebrile no event OBJECTIVE: Vital Signs Period Temp Pulse Resp BP Sys/Charles Pulse Ox Last 24 Hr 97.4 F-98.2 F 85-91 20-20 144-164/60-74 95-95 GENERAL: Awake, alert, and fully oriented, in no acute distress. HEAD: Normal with no signs of trauma. EYES: Pupils equal, round and reactive to light, extraocular movements intact, sclera anicteric, conjunctiva clear. No lid lag. EARS, NOSE, THROAT: oropharynx with poor oral care. dry mucous membranes. NECK: no JVD, or masses. LUNGS: Breath sounds equal, clear to auscultation bilaterally. No wheezes, and no crackles. No accessory muscle use. HEART: Regular rate and rhythm, normal S1 and S2 without murmur, rub or gallop. ABDOMEN: Soft, nontender, not distended, normoactive bowel sounds, no guarding, no rebound, no masses. No hepatomegaly or splenomegaly. UPPER EXTREMITIES: 2+ pulses, warm, well-perfused. No cyanosis. No clubbing. No peripheral edema. LOWER EXTREMITIES: 2+ pulses, warm, well-perfused. No calf tenderness. No peripheral edema. NEUROLOGICAL: dysarthric and limited to yes and no. Strength 5/5 on L and 4/5 on right. handgrip 5/5 on left 4/5 on right. Sensation intact b/l in UE. strength 5/5 in LE SKIN: Warm, dry, normal turgor, no rashes or lesions noted, normal capillary refill. Laboratory Results - last 24 hr 03/04/19 03/04/19 06:00 07:26 WBC 16.7 H RBC 3.28 L Hgb 10.4 L Hct 31.0 L MCV 94.6 MCH 31.7 MCHC 33.5 RDW 15.9 Plt Count 200 MPV 9.8 Absolute Neuts (auto) 14.0 H Neutrophils % 84.2 H Neutrophils % (Manual) 88.6 H Band Neutrophils % 1.9 Lymphocytes % 2.1 L Lymphocytes % (Manual) 0.9 L Monocytes % 13.1 H Monocytes % (Manual) 6 Eosinophils % 0.2 D Eosinophils % (Manual) 0.0 Basophils % 0.4 Basophils % (Manual) 0.0 Myelocytes % (Man) 0 D Promyelocytes % (Man) 0 Blast Cells % (Manual) 0 Nucleated RBC % 0 Metamyelocytes 0 Platelet Estimate Normal Sodium 134 L Potassium 3.2 L Chloride 102 Carbon Dioxide 25 Anion Gap 8 BUN 24.5 H Creatinine 0.6 Est GFR (CKD-EPI)AfAm 110.83 Est GFR (CKD-EPI)NonAf 95.63 Random Glucose 131 H Calcium 8.1 L Active Medications Generic Name Dose Route Start Last Admin Trade Name Freq PRN Reason Stop Dose Admin Aspirin 300 mg 03/03/19 13:45 03/03/19 17:01 Asa - RC 300 mg DAILY [facility] Administration Atorvastatin Calcium 80 mg 03/03/19 22:00 03/03/19 22:27 Lipitor - NGT Not Given HS AMINA Ceftriaxone Sodium 1 gm/ 50 mls @ 100 mls/hr 03/01/19 10:00 03/04/19 10:19 Dextrose IVPB 100 mls/hr DAILY AMINA Administration Amino Acids 1,000 mls @ 75 mls/hr 03/02/19 17:30 03/04/19 05:30 Clinimix - IV 75 mls/hr Q12H AMINA Administration Metoprolol Succinate 100 mg 03/03/19 10:00 Toprol Xl - PO DAILY [facility]INA Prochlorperazine Edisylate 10 mg 03/04/19 13:10 Compazine Injection - IVPB Q8H PRN NAUSEA AND/OR VOMITING ASSESSMENT/PLAN: Head CT negative for acute infarct or bleed just 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 CTA done and read by Dr Mills who noted microvascular low flow state to the Left hemisphere with absent macrovascular disease ASSESSMENT/PLAN: 78 year old male with PMH of CVA 2018, HTN, Afib on Xarelto, COPD, and generalized weakness presenting from [facility] on [address] [place] with sudden onset right sided weakness and dysphagia with slurred speech Acute Right sided weakness poss due to ischemic stroke Admitted to [facility] Head CT and CTA findings decribed above monitor BP 166/[address] showed Interval moderate to large nonhemorrhagic acute/subacute infarct in the left frontal lobe, laterally at the level of the haider radiata and centrum semiovale bilaterally extending to the high convexity. Correlate clinically and close follow-up CT scan or MRI of the brain is needed d/w Dr Mills : continue statin and start rectal ASA 300 mg Daily and anticoagulation in 2-3 days based on pt status Echo showed EF 55-60%,mod-severe mitral valve thickening,mild TR, severe with CHRISTINA 0.7cm2, mean gradient of 24mmHg carotid U/S no acute findings Per neuro might consider NG tube. Spoke with NH and they brought dentures Speech and Swallow eval rec keeping Pt NPO. and no Need MDS due to high risk of Aspiration. PEG? Started on clinimix @75cc/hr. neurochecks Q2h PT ordered lipitor 80 and Xarelto once able. PEG ? NG tube? as per daughter start NG tube and will discuss PEG later. HCP? called daughter Christiane no answer Fall and seizure precautions UTI with Positive UA urine culture positive for beta hem strep group G on rocephin Anemia poss chronic due to med list above 10, will hold aranespt FEN clinimix @75cc D/C'ed fluids Potassium repleted with 2 Kruns. KUB to assess for Ileus? DVT SCDs Visit type - Emergency Visit Emergency Visit: Yes ED Registration Date: 02/27/19 Care time: The patient presented to the Emergency Department on the above date and was hospitalized for further evaluation of their emergent condition. - New Patient This patient is new to me today: No - Critical Care Critical Care patient: No - Discharge Referral Referred to [facility] No ATTENDING PHYSICIAN STATEMENT I saw and evaluated the patient. I reviewed the resident's note and discussed the case with the resident. I agree with the resident's findings and plan as documented. SUBJECTIVE: OBJECTIVE: ASSESSMENT AND PLAN:
[2019-03-04] MEDS: ASPIRIN 300 MG SUPP.RECT RC SCH (15:24)
[2019-03-04] MEDS: KCL 10 MEQ IVPB 10 MEQ/100 ML INFUS.BAG IVPB SCH ×2 (15:33→18:11)
--- NOTE | 2019-03-04 18:45 | PN ---
Teaching Attending Note Name of Resident: Juliocesar Benson ATTENDING PHYSICIAN STATEMENT I saw and evaluated the patient. I reviewed the resident's note and discussed the case with the resident. I agree with the resident's findings and plan as documented. SUBJECTIVE: denies pain OBJECTIVE: NAD, awake, tries to communicate verbally. dry MM. no facialdroop. CV: RRR. 2/6 Sm at RUSB Lungs: CTAb anteriorly Abd: soft, NT, Nd , NL BS . mid line surgical scar Ext: No edema or erythema on LE. Neuro : not cooperative, tries to speak, no facial droop, round equal reactive pupils. does not cooperate with strength exam, but can earth mover elbows, not lift upper arms off the bed. can partially bend hips and knees. reflexes : 1+ knee jerk and biceps b/l unable to assess sensation ASSESSMENT AND PLAN: Patient is a 78 year old male with PMHx of old CVA , HTN, Afib on Xarelto, COPD , who presented form [place] with aphasia and R sided weakness. he was found to have acute L frontal CVA 1- Large acute L frontal stroke 2- Aphasia, R sided hemiparesis 3- dysphagia and risk fro aspiration 4- UTI . worsening leukocytosis 5- H/o HTN 6- H/o P A fib Plan : - Hold full AC till we repeat CT in few days - will reorder MRI of brain - cont BB - d/w speech, still aspirating - place NG and consult dietitian for TF - family is agreeable to PEG . will get HCP paperwork - send blood cx - worsening leukocytosis could be due to continued aspiration - cont CTX - daughter was called by Dr. Winslow dispo : OC
[2019-03-04] MEDS: carBAMazepine 200 MG TABLET PO SCH (21:43)
[2019-03-04] MEDS: ATORVASTATIN CA 80 MG TABLET (FP) NGT SCH (21:44)
[2019-03-05 08:05] LABS: BASO % 0.5 % (0-2.0); EOS % 0.1 % (0-4.5); HEMATOCRIT 31.1 % (35.4-49); HEMOGLOBIN 10.5 GM/dL (11.7-16.9); LYMPH % 1.6 % (8-40); MCH 31.8 pg (25.7-33.7); MCHC 33.8 g/dl (32.0-35.9); MEAN CELL VOLUME 94.1 fl (80-96); MEAN PLT VOLUME 10.9 fl (7.5-11.1); MONO % 10.2 % (3.8-10.2); NEUT % 87.6 % (42.8-82.8); PLATELET COUNT 210 K/MM3 (134-434); RBC 3.31 M/mm3 (4.00-5.60); RDW 15.7 % (11.9-15.9); WHITE BLOOD COUNT 21.4 K/mm3 (4.0-10.0)
[2019-03-05 08:24] LABS: BLOOD UREA NITROGEN 31.6 mg/dL (7-18); CALCIUM 8.1 mg/dL (8.5-10.1); CREATININE 0.6 mg/dL (0.55-1.3); POTASSIUM 3.6 mmol/L (3.5-5.1)
[2019-03-05] MEDS ORDERED: GLYCERIN 1 RECTAL SUPPOSITORY, ADULT PR PRN (10:30)
[2019-03-05] MEDS ORDERED: cefTRIAXone SODIUM 1 GM VIAL ONE (10:38)
[2019-03-05] MEDS ORDERED: DEXTROSE 5%-WATER - 50 ML IVPB ONE (10:39)
[2019-03-05] MEDS: CEFTRIAXONE 1 GM in DEXTROSE 5%-WATER - 50 ML IVPB SCH (10:58)
--- NOTE | 2019-03-05 11:06 | PN ---
Progress Note, FIELD SERVICE REP - Note Progress Note: Wet, gurgly cough/voice. Audible copious pharyngeal secretions, suctioned with good affect, improved vocal quality. REC: Frequent suctioning. Consider review of pt's end of life wishes with HCP. Pt is full code. TF? NGT temporarily vs PEG.
[2019-03-05] MEDS: carBAMazepine 200 MG TABLET PO SCH (11:11)
[2019-03-05 12:23] LABS: ANISOCYTOSIS 1+; MACROCYTOSIS 0; OVALOCYTE 1+; PLATELET ESTIMATE NORMAL; TEAR DROP CELLS 1+
--- NOTE | 2019-03-05 14:16 | PN ---
Progress Note (short form) - Note Progress Note: 78 year old male history of Stroke, htn, Afib, COPD. Patient is NH patient and came with right sided sided weakness and difficulty swallowing. Patient is sually talkative as per nursing notes. Paitent is able to walk and talkative. Patient right sided seems to be improved. Paitent bp was 175/53. Patient failed swallowing test, and He is NPO. Patient had repeat ct head and it showed new subacute left frontal lobe stroke patient opens eye and able to follow simple command NEUROLOGICAL EXAMINATION Alert oriented x 0 , neck is supple afebrile bp he follow simple command patient is aphasic and not able to express, no conjugate eye deviation was identified eomi, pupils reactive moving all extremity ct head showed large post temporal infarct CTA head unremarkable, carotid ultrasound report appreciated. repeat ct head on march 03 showed large subacute left frontal lobe infarct Assessment/Plan78 year old male with history of atrial fibrillation and old stroke came with right hemiparesis and dysphagia and hemiparesis seems to be resolved, patient still have aphasia, ( apparently there is chagne in his status from baseline) . a new subacute left frontal lobe infarct idenfied He failed swallowing test Plan: hold anticoagulation for few more days , - continue statin and statin dvt prophylaxis, PT -supportive care consider ng tube placement Thanking you so much Tonio
[2019-03-05] MEDS: AMINO ACIDS 4.25%/D5W 1,000 ML IV SCH (15:00)
--- NOTE | 2019-03-05 15:23 | PN ---
Physical Exam: SUBJECTIVE: Patient seen and examined. No new complaints overnight. Pt. endorses LLQ and suprapubic tenderness by saying "yes" multiple times when asked. After 45 min discussion with family at bedside, both daughters are equal Health Care Proxies, decision was made to talk to Palliative Care in the AM to assess the legal ramifications of putting in a PEG, particularly [place] State law in regards to discontinuing tube feeds after a certain point if Pt. unable to regain the ability to swallow as per the Pt.s wishes. The Pt. did not wish to be on prolonged enteral feeds or prolonged ventilatory assist. Family signed DNR /DNI at bedside as was his code status in the correction. OBJECTIVE: Vital Signs Period Temp Pulse Resp BP Sys/Charles Pulse Ox Last 24 Hr 97.6 F-98.2 F 94-108 20-20 136-156/63-75 94 GENERAL: Awake, alert, and fully oriented, in no acute distress. HEAD: Normal with no signs of trauma. EYES: Pupils equal, round and reactive to light, extraocular movements intact, sclera anicteric, conjunctiva clear. No lid lag. EARS, NOSE, THROAT: oropharynx with poor oral care. dry mucous membranes. NECK: no JVD, or masses. LUNGS: Breath sounds equal, clear to auscultation bilaterally. No wheezes, and no crackles. No accessory muscle use. HEART: Regular rate and rhythm, normal S1 and S2 without murmur, rub or gallop. ABDOMEN: Soft, nontender, not distended, normoactive bowel sounds, no guarding, no rebound, no masses. No hepatomegaly or splenomegaly. UPPER EXTREMITIES: 2+ pulses, warm, well-perfused. No cyanosis. No clubbing. No peripheral edema. LOWER EXTREMITIES: 2+ pulses, warm, well-perfused. No calf tenderness. No peripheral edema. NEUROLOGICAL: dysarthric and limited to yes and no. Strength 5/5 on L and 4/5 on right. handgrip 5/5 on left 4/5 on right. Sensation intact b/l in UE. strength 5/5 in LE SKIN: Warm, dry, normal turgor, no rashes or lesions noted, normal capillary refill. Laboratory Results - last 24 hr 03/05/19 03/05/19 06:35 06:35 WBC 21.4 H RBC 3.31 L Hgb 10.5 L Hct 31.1 L MCV 94.1 MCH 31.8 MCHC 33.8 RDW 15.7 Plt Count 210 MPV 10.9 D Absolute Neuts (auto) 18.7 H Neutrophils % 87.6 H Neutrophils % (Manual) 76.2 Band Neutrophils % 12.9 Lymphocytes % 1.6 L D Lymphocytes % (Manual) 4.0 L D Monocytes % 10.2 Monocytes % (Manual) 7 Eosinophils % 0.1 Eosinophils % (Manual) 0.0 Basophils % 0.5 Basophils % (Manual) 0.0 Myelocytes % (Man) 0 Promyelocytes % (Man) 0 Blast Cells % (Manual) 0 Nucleated RBC % 0 Metamyelocytes 0 Hypochromia 0 Platelet Estimate Normal Platelet Comment Present Polychromasia 1+ Poikilocytosis 1+ Anisocytosis 1+ Microcytosis 1+ Macrocytosis 0 Spherocytes 1+ Tear Drop Cells 1+ Ovalocytes 1+ Sodium 133 L Potassium 3.6 Chloride 101 Carbon Dioxide 23 Anion Gap 8 BUN 31.6 H Creatinine 0.6 Est GFR (CKD-EPI)AfAm 110.83 Est GFR (CKD-EPI)NonAf 95.63 Random Glucose 124 H Calcium 8.1 L Active Medications Current Medications Aspirin (Asa -) 300 mg RC DAILY [facility] Last Admin: 03/04/19 15:24 Dose: 300 mg Atorvastatin Calcium (Lipitor -) 80 mg NGT HS [facility] Last Admin: 03/04/19 21:44 Dose: Not Given Carbamazepine (Tegretol -) 200 mg PO BID [facility] Last Admin: 03/05/19 11:11 Dose: Not Given Glycerin (Glycerin Suppository Adult -) 1 each DE DAILY PRN PRN Reason: CONSTIPATION Ceftriaxone Sodium 1 gm/ (Dextrose) 50 mls @ 100 mls/hr IVPB DAILY [facility] Last Admin: 03/05/19 10:58 Dose: 100 mls/hr Amino Acids (Clinimix -) 1,000 mls @ 75 mls/hr IV Q12H [facility] Last Admin: 03/04/19 22:18 Dose: 75 mls/hr Sodium Chloride (Normal Saline -) 1,000 mls @ 42 mls/hr IV ASDIR [facility] Metoprolol Succinate (Toprol Xl -) 100 mg PO DAILY [facility] Last Admin: 03/05/19 11:11 Dose: Not Given ASSESSMENT/PLAN: Head CT negative for acute infarct or bleed just 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 CTA done and read by Dr Mills who noted microvascular low flow state to the Left hemisphere with absent macrovascular disease ASSESSMENT/PLAN: 78 year old male with PMH of CVA 2018, HTN, Afib on Xarelto, COPD, and generalized weakness presenting from [facility] on [place] with sudden onset right sided weakness and dysphagia with slurred speech Acute Right sided weakness poss due to ischemic stroke Admitted to tele Head CT and CTA findings decribed above monitor BP 166/[address] showed Interval moderate to large nonhemorrhagic acute/subacute infarct in the left frontal lobe, laterally at the level of the haider radiata and centrum semiovale bilaterally extending to the high convexity. Correlate clinically and close follow-up CT scan or MRI of the brain is needed d/w Dr Mills : continue statin and start rectal ASA 300 mg Daily and anticoagulation in 2-3 days based on pt status Echo showed EF 55-60%,mod-severe mitral valve thickening,mild TR, severe with CHRISTINA 0.7cm2, mean gradient of 24mmHg carotid U/S no acute findings Per neuro might consider NG tube. Spoke with NH and they brought dentures Speech and Swallow eval rec keeping Pt NPO. and no Need MDS due to high risk of Aspiration. PEG? Started on clinimix @75cc/hr. neurochecks Q2h PT ordered lipitor 80 and Xarelto once able. PEG ? NG tube? as per daughter start NG tube and will discuss PEG later. HCP? called daughter Christiane no answer Fall and seizure precautions UTI with Positive UA urine culture positive for beta hem strep group G on rocephin Anemia poss chronic due to med list above 10, will hold aranespt FEN clinimix @75cc D/C'ed fluids Potassium repleted with 2 Kruns. KUB to assess for Ileus? DVT SCDs ATTENDING PHYSICIAN STATEMENT I saw and evaluated the patient. I reviewed the resident's note and discussed the case with the resident. I agree with the resident's findings and plan as documented. SUBJECTIVE: OBJECTIVE: ASSESSMENT AND PLAN:
[2019-03-05] MEDS: SODIUM CHLORIDE 1,000 ML IV SCH (17:33)
--- NOTE | 2019-03-05 17:39 | PN ---
Teaching Attending Note Name of Resident: Juliocesar Benson ATTENDING PHYSICIAN STATEMENT I saw and evaluated the patient. I reviewed the resident's note and discussed the case with the resident. I agree with the resident's findings and plan as documented. SUBJECTIVE: Unable to obtain hx. OBJECTIVE: NAD, awake, tries to communicate verbally. Dry MM. no facial droop. CV: RRR. 2/6 Sm at RUSB Lungs: CTAb anteriorly Abd: soft, TTP , ND , NL BS . mid line surgical scar Ext: No edema or erythema on LE. Neuro : not cooperative, tries to speak, no facial droop, round equal reactive pupils. Restricted R gaze. does not cooperate with strength exam, can only squeeze lightly on L hand. and wiggle toes . reflexes : 1+ knee jerk and biceps b/l unable to assess sensation ASSESSMENT AND PLAN: Patient is a 78 year old male with PMHx of old CVA , HTN, Afib on Xarelto, COPD , who presented form [place] with aphasia and R sided weakness. he was found to have acute L frontal CVA 1- Large acute L frontal stroke 2- Aphasia, R sided hemiparesis 3- dysphagia and risk fro aspiration 4- UTI . worsening leukocytosis 5- Abd pain 6- H/o HTN 7- H/o P A fib Plan : - will obtain CT of abdomen due to worsening leukocytosis, and Abd tenderness. - if he stools will order C diff - will consult Id - cont ceftriaxone - Hold full AC till we repeat CT in few days - MRI of brain not done yet - cont BB - condition and poor prognosis was d/w daughter Johnny, HCP. She will think about NGT/PEg for nutrition. daughter christiane will be here later today to discuss Hospice vs PEG . Johnny indicated that father is DNR/DNI. this will be confirmed with Christiane who is also the HCP
[2019-03-05] MEDS ORDERED: PT OWN MED DRAWER 7, Y5N ONE ×2 (18:14→21:21)
[2019-03-05] MEDS: ASPIRIN 300 MG SUPP.RECT RC SCH (18:24)
[2019-03-05] MEDS ORDERED: METOPROLOL TARTRATE 5 MG/5 ML VIAL IVPUSH PRN (21:00)
[2019-03-05] MEDS: HEPARIN NA (PORCINE) 5,000 UNITS/ML 1ML VIAL SQ SCH (22:05)
[2019-03-05] MEDS: ATORVASTATIN CA 80 MG TABLET (FP) NGT SCH (22:05)
[2019-03-05] MEDS: levETIRAcetam 500 MG/5 ML INJECTION VIAL IVPB SCH (22:05)
[2019-03-06] MEDS: AMINO ACIDS 4.25%/D5W 1,000 ML IV SCH ×2 (06:00→21:34)
[2019-03-06 08:02] LABS: BASO % 0.6 % (0-2.0); EOS % 0.2 % (0-4.5); HEMATOCRIT 30.6 % (35.4-49); HEMOGLOBIN 10.2 GM/dL (11.7-16.9); LYMPH % 2.7 % (8-40); MCH 31.5 pg (25.7-33.7); MCHC 33.3 g/dl (32.0-35.9); MEAN CELL VOLUME 94.4 fl (80-96); MONO % 14.2 % (3.8-10.2); NEUT % 82.3 % (42.8-82.8); PLATELET COUNT 240 K/MM3 (134-434); RBC 3.24 M/mm3 (4.00-5.60); RDW 15.4 % (11.9-15.9); WHITE BLOOD COUNT 17.2 K/mm3 (4.0-10.0)
[2019-03-06 08:42] LABS: BLOOD UREA NITROGEN 39.7 mg/dL (7-18); CALCIUM 8.3 mg/dL (8.5-10.1); CREATININE 0.8 mg/dL (0.55-1.3); MAGNESIUM 1.9 mg/dL (1.8-2.4); PHOSPHOROUS 2.1 mg/dL (2.5-4.9); POTASSIUM 3.8 mmol/L (3.5-5.1)
[2019-03-06] MEDS ORDERED: cefTRIAXone SODIUM 1 GM VIAL ONE (10:21)
[2019-03-06] MEDS ORDERED: DEXTROSE 5%-WATER - 50 ML IVPB ONE ×2 (10:21→20:43)
[2019-03-06] MEDS: CEFTRIAXONE 1 GM in DEXTROSE 5%-WATER - 50 ML IVPB SCH (10:31)
[2019-03-06] MEDS: levETIRAcetam 500 MG/5 ML INJECTION VIAL IVPB SCH ×2 (10:31→21:34)
[2019-03-06] MEDS: METOPROLOL TARTRATE 5 MG/5 ML VIAL IVPUSH PRN (10:32)
--- NOTE | 2019-03-06 11:01 | PN ---
Progress Note, SCALE ASSEMBLY SET UP WORKER - Note Progress Note: Worked with pt and family, educated them on ways to maximize auditory comprehension, eliciting speech production/social speech. They feel he always "wanted to live" and would want a PEG for trial period. Educated them on limited prognosis for conversational speech but goal of y/n responses, social speech, some word repetition/elicitation. Said "alright", Y/N responses improving but not clearly rekliable. Oral holding-swallow not functional. Less secretions, allowed me top suction with good affect. Smiling responsively. Starting to approach midline but not yet cross to right. Family would like NH near them in [place]. Nursing/SW made aware.
[2019-03-06 11:32] LABS: ANISOCYTOSIS 1+; MACROCYTOSIS 0; PLATELET ESTIMATE NORMAL
--- NOTE | 2019-03-06 14:12 | CON.ID ---
Consult - Alcohol/Substance Use Hx Alcohol Use: No - Smoking History Smoking history: Unknown if ever smoked Have you smoked in the past 12 months: No Home Medications - Allergies Allergies/Adverse Reactions: Allergies Allergy/AdvReac Type Severity Reaction Status Date / Time No Known Allergies Allergy Verified 02/27/19 22:24 - Home Medications Home Medications: Ambulatory Orders Acetaminophen [Tylenol] 650 mg PO Q8H 02/28/19 Atorvastatin Ca [Lipitor] 80 mg PO HS 02/28/19 Calcium 250Mg/Vit-D 125 Units [Oscal 250 mg+D -] 1 combo PO BID 02/28/19 Carbamazepine 200 mg PO BID 02/28/19 Ceramides 1,3,6-11 [Cerave] 355 ml TP DAILY 02/28/19 Darbepoetin Odin in Polysorbat [Aranesp] 100 mcg IJ MONTHLY 02/28/19 Ferrous Gluconate [Ferate] 240 mg PO DAILY 02/28/19 Folic Acid 400 mcg PO DAILY 02/28/19 Gabapentin 600 mg PO BID 02/28/19 Lidocaine HCl [Aspercreme] 76.5 gm TP DAILY 02/28/19 Metoprolol Succinate [Toprol Xl] 100 mg PO DAILY 02/28/19 Niacin 500 mg PO HS 02/28/19 Pregabalin [Lyrica] 50 mg PO BID 02/28/19 Rivaroxaban [Xarelto -] 20 mg PO DAILY 02/28/19 Tamsulosin HCl [Flomax] 0.8 mg PO DAILY 02/28/19 Physical Exam Vital Signs: Vital Signs Temperature 98.1 F 03/06/19 05:57 Pulse Rate 98 H 03/06/19 10:32 Respiratory Rate 20 03/06/19 05:57 Blood Pressure 132/78 03/06/19 10:32 O2 Sat by Pulse Oximetry (%) 96 03/05/19 22:00 Labs: CBC, BMP 03/06/19 06:35 03/06/19 06:35
--- NOTE | 2019-03-06 18:11 | PN ---
Physical Exam: SUBJECTIVE: Patient seen and examined. Pt less interactive than usual and seemed to frown on lower abdomen palpation OBJECTIVE: Vital Signs Period Temp Pulse Resp BP Sys/Charles Pulse Ox Last 24 Hr 98.0 F-98.3 F 95-110 20-20 130-162/63-78 96 GENERAL: The patient is awake, alert, and fully oriented, in no acute distress. HEAD: Normal with no signs of trauma. EYES: PERRL conjunctiva clear. No ptosis. ENT:, tongue covered with film dry mucous membranes. LUNGS: Breath sounds equal, clear to auscultation bilaterally, no wheezes, no crackles, no accessory muscle use. HEART: Regular rate and rhythm, S1, S2 without murmur, rub or gallop. ABDOMEN: Soft, tender in LQ, nondistended, normoactive bowel sounds, no guarding , no rebound, no hepatosplenomegaly, no masses. EXTREMITIES: 2+ pulses, warm, well-perfused, no edema. NEUROLOGICAL: unable to assess as pt less reactive today. SKIN: Warm, dry, normal turgor, no rashes or lesions noted Laboratory Results - last 24 hr 03/05/19 03/06/19 03/06/19 18:12 06:35 06:35 WBC 17.2 H RBC 3.24 L Hgb 10.2 L Hct 30.6 L MCV 94.4 MCH 31.5 MCHC 33.3 RDW 15.4 Plt Count 240 MPV 11.0 Absolute Neuts (auto) 14.2 H Neutrophils % 82.3 Neutrophils % (Manual) 84.1 H Band Neutrophils % 1.0 Lymphocytes % 2.7 L D Lymphocytes % (Manual) 2.0 L D Monocytes % 14.2 H Monocytes % (Manual) 11 H Eosinophils % 0.2 D Eosinophils % (Manual) 0.0 Basophils % 0.6 Basophils % (Manual) 0.0 Myelocytes % (Man) 0 Promyelocytes % (Man) 0 Blast Cells % (Manual) 0 Nucleated RBC % 0 Metamyelocytes 0 Hypochromia 0 Platelet Estimate Normal Polychromasia 0 Poikilocytosis 0 Anisocytosis 1+ Microcytosis 1+ Macrocytosis 0 Sodium 132 L Potassium 3.8 Chloride 99 Carbon Dioxide 23 Anion Gap 9 BUN 39.7 H Creatinine 0.8 Est GFR (CKD-EPI)AfAm 98.47 Est GFR (CKD-EPI)NonAf 84.96 POC Glucometer 122 Random Glucose 113 H Calcium 8.3 L Phosphorus 2.1 L Magnesium 1.9 Active Medications Generic Name Dose Route Start Last Admin Trade Name Freq PRN Reason Stop Dose Admin Atorvastatin Calcium 80 mg 03/03/19 22:00 03/05/19 22:05 Lipitor - NGT Not Given HS AMINA Glycerin 1 each 03/05/19 10:30 Glycerin Suppository Adult - [place] DAILY PRN CONSTIPATION Heparin Sodium (Porcine) 5,000 unit 03/05/19 22:00 03/05/19 22:05 Heparin - SQ 5,000 unit TID AMINA Administration Amino Acids 1,000 mls @ 75 mls/hr 03/02/19 17:30 03/06/19 06:00 Clinimix - IV 75 mls/hr Q12H AMINA Administration Sodium Chloride 1,000 mls @ 42 mls/hr 03/04/19 16:45 03/05/19 17:33 Normal Saline - IV Not Given ASDIR AMINA Piperacillin Sod/Tazobactam 50 mls @ 100 mls/hr 03/06/19 14:15 Sod 3.375 gm/ Dextrose IVPB Q8H-IV AMINA Protocol Levetiracetam 500 mg 03/05/19 22:00 03/06/19 10:31 Keppra Injection - IVPB 500 mg BID AMINA Administration Metoprolol Tartrate 5 mg 03/05/19 21:19 03/06/19 10:32 Lopressor Injection - IVPUSH 5 mg Q4H PRN Administration TACHYCARDIA ASSESSMENT/PLAN: Head CT negative for acute infarct or bleed just 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 CTA done and read by Dr Mills who noted microvascular low flow state to the Left hemisphere with absent macrovascular disease 78 year old male with PMH of CVA 2018, HTN, Afib on Xarelto, COPD, and generalized weakness presenting from [facility] on [address] with sudden onset right sided weakness and dysphagia with slurred speech Acute Right sided weakness poss due to ischemic stroke Admitted to [facility] Head CT and CTA findings decribed above monitor BP 146/[address] showed Interval moderate to large nonhemorrhagic acute/subacute infarct in the left frontal lobe, laterally at the level of the haider radiata and centrum semiovale bilaterally extending to the high convexity. Correlate clinically and close follow-up CT scan or MRI of the brain is needed d/w Dr Mills :d/c rectal ASA 300 mg Daily and anticoagulation in 2-3 days based on pt status Keppra 500 BID Echo showed EF 55-60%,mod-severe mitral valve thickening,mild TR, severe with CHRISTINA 0.7cm2, mean gradient of 24mmHg carotid U/S no acute findings Speech and Swallow eval rec keeping Pt NPO. and no Need MDS due to high risk of Aspiration. HCP agreed to PEG for a trial period. pt will have PEG placed on saturday with IR peg protocol started. pre op labs will be ordered on clinimix @75cc/hr. neurochecks PT ordered Fall and seizure precautions UTI with Positive UA urine culture positive for beta hem strep group G on zosyn day [address] of abdomen due to worsening leukocytosis, and Abd tenderness. Anemia poss chronic due to med list above 10, will hold aranespt FEN clinimix @75cc D/C'ed fluids DVT SCDs Ina indicated that father is DNR/DN Visit type - Emergency Visit Emergency Visit: Yes ED Registration Date: 02/27/19 Care time: The patient presented to the Emergency Department on the above date and was hospitalized for further evaluation of their emergent condition. - New Patient This patient is new to me today: No - Critical Care Critical Care patient: No - Discharge Referral Referred to [facility] Med P.C.: No ATTENDING PHYSICIAN STATEMENT I saw and evaluated the patient. I reviewed the resident's note and discussed the case with the resident. I agree with the resident's findings and plan as documented. SUBJECTIVE: OBJECTIVE: ASSESSMENT AND PLAN:
--- NOTE | 2019-03-06 19:13 | PN ---
Teaching Attending Note Name of Resident: Juliocesar Benson ATTENDING PHYSICIAN STATEMENT I saw and evaluated the patient. I reviewed the resident's note and discussed the case with the resident. I agree with the resident's findings and plan as documented. SUBJECTIVE: No events over night OBJECTIVE: NAD, awake. Dry MM. no facial droop. CV: RRR. 2/6 SM at RUSB Lungs: CTAb anteriorly Abd: soft, TTP , ND , NL BS . mid line surgical scar Ext: No edema or erythema on LE. Neuro : not cooperative, tries to speak, no facial droop, round equal reactive pupils. Restricted R gaze. does not cooperate with strength exam, can only move L hand fingers and wiggle toes . reflexes : 1+ knee jerk and biceps b/l unable to assess sensation skin : R hand dorsum erythema and tenderness at site of IV ASSESSMENT AND PLAN: Patient is a 78 year old male with PMHx of old CVA , HTN, Afib on Xarelto, COPD , [place] and R sided weakness. he was found to have acute L frontal CVA 1- Large acute L frontal stroke 2- Aphasia, R sided hemiparesis 3- Dysphagia and risk for aspiration 4- UTI. worsening leukocytosis 5- Abd pain 6- H/o HTN 7- H/o P A fib Plan : - case d/w Dr. Bobde. mahajan started - will get Cxray in am - CT of abd is still pending - acn't get MRI as patient is at risk for aspiration with supine position . will ask neuro if it will pattern changer - D/w neuro. will start elisuis on Saturday - cont BB - case was d/w daughter Johnny today. case was d/w palliative care. decision is made to place PEG on Saturday. daughter does not want to start feeding through NGT at this time - DNR/DNI
[2019-03-06] MEDS ORDERED: PIPERACILLIN/TAZOBACTAM 3.375 GM VIAL IVPB ONE (20:43)
[2019-03-06] MEDS: PIPERACILLIN/TAZOB 3.375 GM 3.375 GM in DEXTROSE 5%-WATER - 50 ML IVPB SCH ×2 (20:43→23:57)
[2019-03-06] MEDS: HEPARIN NA (PORCINE) 5,000 UNITS/ML 1ML VIAL SQ SCH (21:35)
[2019-03-06] MEDS: ATORVASTATIN CA 80 MG TABLET (FP) NGT SCH (21:35)
[2019-03-07] MEDS ORDERED: PIPERACILLIN/TAZOBACTAM 3.375 GM VIAL IVPB ONE ×3 (03:18→18:13)
[2019-03-07] MEDS ORDERED: DEXTROSE 5%-WATER - 50 ML IVPB ONE ×3 (03:18→18:14)
[2019-03-07] MEDS: PIPERACILLIN/TAZOB 3.375 GM 3.375 GM in DEXTROSE 5%-WATER - 50 ML IVPB SCH ×3 (03:25→18:12)
[2019-03-07] MEDS: HEPARIN NA (PORCINE) 5,000 UNITS/ML 1ML VIAL SQ SCH ×3 (05:53→21:47)
[2019-03-07 06:50] LABS: BASO % 0.3 % (0-2.0); EOS % 0.7 % (0-4.5); HEMATOCRIT 27.3 % (35.4-49); HEMOGLOBIN 9.2 GM/dL (11.7-16.9); LYMPH % 2.6 % (8-40); MCH 31.5 pg (25.7-33.7); MCHC 33.7 g/dl (32.0-35.9); MEAN CELL VOLUME 93.4 fl (80-96); MEAN PLT VOLUME 10.6 fl (7.5-11.1); MONO % 15.4 % (3.8-10.2); PLATELET COUNT 261 K/MM3 (134-434); RBC 2.92 M/mm3 (4.00-5.60); RDW 15.2 % (11.9-15.9); WHITE BLOOD COUNT 15.3 K/mm3 (4.0-10.0)
[2019-03-07 07:03] LABS: BLOOD UREA NITROGEN 36.9 mg/dL (7-18); CALCIUM 8.1 mg/dL (8.5-10.1); CREATININE 0.7 mg/dL (0.55-1.3); POTASSIUM 3.4 mmol/L (3.5-5.1)
[2019-03-07] MEDS ORDERED: POTASSIUM PHOSPHATE 10 MM in DEXTROSE 5%-WATER - 250 ML IVPB ONE (07:41)
[2019-03-07] MEDS: METOPROLOL TARTRATE 5 MG/5 ML VIAL IVPUSH PRN (10:12)
[2019-03-07] MEDS: levETIRAcetam 500 MG/5 ML INJECTION VIAL IVPB SCH ×2 (10:12→21:47)
[2019-03-07] MEDS: AMINO ACIDS 4.25%/D5W 1,000 ML IV SCH ×2 (10:13→14:21)
--- NOTE | 2019-03-07 11:29 | PN ---
Progress Note, Physician History of Present Illness: stable looks much calmer - Current Medication List Current Medications: Active Medications Atorvastatin Calcium (Lipitor -) 80 mg NGT HS [facility] Last Admin: 03/06/19 21:35 Dose: Not Given Glycerin (Glycerin Suppository Adult -) 1 each [place] DAILY PRN PRN Reason: CONSTIPATION Heparin Sodium (Porcine) (Heparin -) 5,000 unit SQ TID [facility] Last Admin: 03/07/19 05:53 Dose: 5,000 unit Amino Acids (Clinimix -) 1,000 mls @ 75 mls/hr IV Q12H [facility] Last Admin: 03/07/19 10:13 Dose: Not Given Sodium Chloride (Normal Saline -) 1,000 mls @ 42 mls/hr IV ASDIR [facility] Last Admin: 03/05/19 17:33 Dose: Not Given Piperacillin Sod/Tazobactam (Sod 3.375 gm/ Dextrose) 50 mls @ 100 mls/hr IVPB Q8H-IV [facility]; Protocol Last Admin: 03/07/19 10:13 Dose: 100 mls/hr Potassium Phosphate 10 mm/ (Dextrose) 253.3333 mls @ 62.5 mls/hr IVPB ONCE ONE Stop: 03/07/19 11:44 Last Admin: 03/07/19 10:12 Dose: 62.5 mls/hr Levetiracetam (Keppra Injection -) 500 mg IVPB BID [facility] Last Admin: 03/07/19 10:12 Dose: 500 mg Metoprolol Tartrate (Lopressor Injection -) 5 mg IVPUSH Q4H PRN PRN Reason: TACHYCARDIA Last Admin: 03/07/19 10:12 Dose: 5 mg - Objective Vital Signs: Vital Signs Temperature 98 F 03/07/19 05:15 Pulse Rate 95 H 03/07/19 10:12 Respiratory Rate 20 03/07/19 05:15 Blood Pressure 147/56 L 03/07/19 10:12 O2 Sat by Pulse Oximetry (%) 96 03/06/19 21:00 Constitutional: Yes: No Distress, Calm Cardiovascular: Yes: S1, S2 Respiratory: Yes: Regular, CTA Bilaterally Gastrointestinal: Yes: Normal Bowel Sounds, Soft Musculoskeletal: Yes: WNL Extremities: Yes: Other Neurological: Yes: Alert Psychiatric: Yes: Other Labs: CBC, BMP 03/07/19 05:20 03/07/19 05:20 INR, PTT INR 1.07 (0.83-1.09) 02/27/19 11:00 Assessment/Plan patient with multiple medical problems who is probably having silent aspiration and with leukocytosis now trending down continue current mgmt monitor wbc asp precautions rest as per the team
[2019-03-07 11:42] LABS: ANISOCYTOSIS 1+; OVALOCYTE 1+; PLATELET ESTIMATE NORMAL; TARGET CELLS 1+; TEAR DROP CELLS 1+
[2019-03-07 12:42] LABS: MACROCYTOSIS 1+
--- NOTE | 2019-03-07 14:02 | PN ---
Physical Exam: SUBJECTIVE: Patient seen and examined. Pt afebril and more alert today. OBJECTIVE: Vital Signs Period Temp Pulse Resp BP Sys/Charles Pulse Ox Last 24 Hr 98 F-100.4 F 91-96 20-20 131-147/56-66 96 GENERAL: Awake, alert, and fully oriented, in no acute distress. HEAD: Normal with no signs of trauma. EYES: Pupils equal, round and reactive to light, extraocular movements intact, sclera anicteric, conjunctiva clear. No lid lag. EARS, NOSE, THROAT: oropharynx with oral care. dry mucous membranes. NECK: no JVD, or masses. LUNGS: Breath sounds equal, clear to auscultation bilaterally. No wheezes, and no crackles. No accessory muscle use. HEART: Regular rate and rhythm, normal S1 and S2 without murmur, rub or gallop. ABDOMEN: Soft, nontender, not distended, normoactive bowel sounds, no guarding, no rebound, no masses. No hepatomegaly or splenomegaly. UPPER EXTREMITIES: 2+ pulses, warm, well-perfused. No cyanosis. No clubbing. No peripheral edema. LOWER EXTREMITIES: 2+ pulses, warm, well-perfused. No calf tenderness. No peripheral edema. NEUROLOGICAL: dysarthric and limited to yes and no. Strength 4/5 on L and 4/5 on right. handgrip 4/5 on left 4/5 on right. Sensation intact b/l in UE. strength 4/5 in LE SKIN: Warm, dry, normal turgor, no rashes or lesions noted, normal capillary refill. Laboratory Results - last 24 hr 03/07/19 03/07/19 05:20 05:20 WBC 15.3 H RBC 2.92 L Hgb 9.2 L Hct 27.3 L MCV 93.4 MCH 31.5 MCHC 33.7 RDW 15.2 Plt Count 261 MPV 10.6 Absolute Neuts (auto) 12.4 H Neutrophils % 81.0 Neutrophils % (Manual) 76.8 Band Neutrophils % 5.1 Lymphocytes % 2.6 L Lymphocytes % (Manual) 2.0 L Monocytes % 15.4 H Monocytes % (Manual) 14 H Eosinophils % 0.7 D Eosinophils % (Manual) 2.0 D Basophils % 0.3 Basophils % (Manual) 0.0 Myelocytes % (Man) 0 Promyelocytes % (Man) 0 Blast Cells % (Manual) 0 Nucleated RBC % 0 Metamyelocytes 0 Hypochromia 1+ Platelet Estimate Normal Platelet Comment No clumping noted Polychromasia 0 Poikilocytosis 1+ Anisocytosis 1+ Microcytosis 0 Macrocytosis 1+ Target Cells 1+ Tear Drop Cells 1+ Ovalocytes 1+ Sodium 134 L Potassium 3.4 L Chloride 101 Carbon Dioxide 24 Anion Gap 9 BUN 36.9 H Creatinine 0.7 Est GFR (CKD-EPI)AfAm 104.03 Est GFR (CKD-EPI)NonAf 89.76 Random Glucose 110 H Calcium 8.1 L Iron 24 L TIBC 144 L Iron Saturation 16 L Unsaturated IBC 120 L Vitamin B12 327 Active Medications Generic Name Dose Route Start Last Admin Trade Name Freq PRN Reason Stop Dose Admin Atorvastatin Calcium 80 mg 03/03/19 22:00 03/06/19 21:35 Lipitor - NGT Not Given HS AMINA Glycerin 1 each 03/05/19 10:30 Glycerin Suppository Adult - [place] DAILY PRN CONSTIPATION Heparin Sodium (Porcine) 5,000 unit 03/05/19 22:00 03/07/19 05:53 Heparin - SQ 5,000 unit TID AMINA Administration Amino Acids 1,000 mls @ 75 mls/hr 03/02/19 17:30 03/07/19 10:13 Clinimix - IV Not Given Q12H AMINA Sodium Chloride 1,000 mls @ 42 mls/hr 03/04/19 16:45 03/05/19 17:33 Normal Saline - IV Not Given ASDIR AMINA Piperacillin Sod/Tazobactam 50 mls @ 100 mls/hr 03/06/19 14:15 03/07/19 10:13 Sod 3.375 gm/ Dextrose IVPB 100 mls/hr Q8H-IV AMINA Administration Protocol Levetiracetam 500 mg 03/05/19 22:00 03/07/19 10:12 Keppra Injection - IVPB 500 mg BID AMINA Administration Metoprolol Tartrate 5 mg 03/05/19 21:19 03/07/19 10:12 Lopressor Injection - IVPUSH 5 mg Q4H PRN Administration TACHYCARDIA ASSESSMENT/PLAN: Head CT negative for acute infarct or bleed just 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 CTA done and read by Dr Mills who noted microvascular low flow state to the Left hemisphere with absent macrovascular disease 78 year old male with PMH of CVA 2018, HTN, Afib on Xarelto, COPD, and generalized weakness presenting from [facility] on with sudden onset right sided weakness and dysphagia with slurred speech Acute Right sided weakness poss due to ischemic stroke Admitted to [facility] Head CT and CTA findings decribed above monitor BP 131/[address] showed Interval moderate to large nonhemorrhagic acute/subacute infarct in the left frontal lobe, laterally at the level of the haider radiata and centrum semiovale bilaterally extending to the high convexity. Correlate clinically and close follow-up CT scan or MRI of the brain is needed d/w Dr Mills :d/c rectal ASA 300 mg Daily and anticoagulation on saturday based on pt status Keppra 500 BID Echo showed EF 55-60%,mod-severe mitral valve thickening,mild TR, severe with CHRISTINA 0.7cm2, mean gradient of 24mmHg carotid U/S no acute findings Speech and Swallow eval rec keeping Pt NPO. and no Need MDS due to high risk of Aspiration. HCP agreed to PEG for a trial period. pt will have PEG placed on saturday with IR peg protocol started. pre op labs will be ordered on clinimix @75cc/hr. NS@42 neurochecks PT ordered Fall and seizure precautions ID Dr Gomez, possible silent aspiration due to leukocytosis. monitor wbc for now UTI with Positive UA urine culture positive for beta hem strep group G on zosyn day [address] of abdomen due to worsening leukocytosis, and Abd tenderness. pt has poor IV access for 20gauge IV. monitor Anemia poss chronic due to med list trending down to 9.2/27.3 Iron studies done and all parameters were low ferritin pending B12 327, Folate pending. FEN clinimix @75cc NS @42 fluids electrolytes repleted. repeat BMP this afternoon DVT SCDs and hep Ina indicated that father is DNR/DNI Visit type - Emergency Visit Emergency Visit: Yes ED Registration Date: 02/27/19 Care time: The patient presented to the Emergency Department on the above date and was hospitalized for further evaluation of their emergent condition. - New Patient This patient is new to me today: No - Critical Care Critical Care patient: No - Discharge Referral Referred to [facility] Med P.C.: No ATTENDING PHYSICIAN STATEMENT I saw and evaluated the patient. I reviewed the resident's note and discussed the case with the resident. I agree with the resident's findings and plan as documented. SUBJECTIVE: OBJECTIVE: ASSESSMENT AND PLAN:
[2019-03-07] MEDS: SODIUM CHLORIDE 1,000 ML IV SCH (14:21)
--- NOTE | 2019-03-07 16:01 | PN ---
Teaching Attending Note Name of Resident: Jenniffer Winslow ATTENDING PHYSICIAN STATEMENT I saw and evaluated the patient. I reviewed the resident's note and discussed the case with the resident. I agree with the resident's findings and plan as documented. SUBJECTIVE: unable to obtain full hx but he denies pain. OBJECTIVE: NAD, awake. Dry MM. no facial droop. smiles, more verbal today CV: RRR. 2/6 SM at RUSB Lungs: CTAB anteriorly Abd: soft, NT, ND , NL BS. Mid line surgical scar Ext: No edema or erythema on LE. Neuro : not cooperative, tries to speak, no facial droop, round equal reactive pupils.today he can look to the right side as well as L side. does not cooperate with strength exam,but Lift his R arm of bed ( shoulder flexion 2/5, biceps 2/5, triceps 4/5, can move gingers ), L side he lifts his L arm off bed but does not cooperate further. Reflexes : 2+ knee jerk b/l, and 1+ biceps b/ l unable to assess sensation skin : R hand dorsum erythema and tenderness is better ASSESSMENT AND PLAN: Patient is a 78 year old male with PMHx of old CVA , HTN, Afib on Xarelto, COPD , who presented form [place] with aphasia and R sided weakness. he was found to have acute L frontal CVA 1- Large acute L frontal stroke 2- Aphasia, R sided hemiparesis 3- Dysphagia and risk for aspiration 4- worsening leukocytosis 5- Abd pain 6- H/o HTN 7- H/o P A fib Plan : - cont zosyn - CT of abd not done yet, will do with IV contrast only - cxray reviewed , no new infiltrate . follow report -can't get MRI as patient is at risk for aspiration with supine position . will ask neuro if it will slip box changer - will start amador on Saturday - cont BB - DNR/DNI
[2019-03-07 19:15] LABS: BLOOD UREA NITROGEN 34.2 mg/dL (7-18); CALCIUM 8.2 mg/dL (8.5-10.1); CREATININE 0.7 mg/dL (0.55-1.3); POTASSIUM 3.5 mmol/L (3.5-5.1)
[2019-03-07] MEDS: ATORVASTATIN CA 80 MG TABLET (FP) NGT SCH (21:50)
[2019-03-08] MEDS ORDERED: DEXTROSE 5%-WATER - 50 ML IVPB ONE ×3 (01:08→17:10)
[2019-03-08] MEDS ORDERED: PIPERACILLIN/TAZOBACTAM 3.375 GM VIAL IVPB ONE ×3 (01:08→17:09)
[2019-03-08] MEDS: PIPERACILLIN/TAZOB 3.375 GM 3.375 GM in DEXTROSE 5%-WATER - 50 ML IVPB SCH ×3 (01:35→17:10)
[2019-03-08] MEDS: AMINO ACIDS 4.25%/D5W 1,000 ML IV SCH ×4 (06:13→17:07)
[2019-03-08] MEDS: HEPARIN NA (PORCINE) 5,000 UNITS/ML 1ML VIAL SQ SCH ×3 (06:14→21:31)
[2019-03-08 07:15] LABS: CALCIUM 8.4 mg/dL (8.5-10.1); CREATININE 0.6 mg/dL (0.55-1.3); POTASSIUM 3.5 mmol/L (3.5-5.1)
[2019-03-08 07:16] LABS: HEMATOCRIT 28.9 % (35.4-49); HEMOGLOBIN 9.6 GM/dL (11.7-16.9); MEAN CELL VOLUME 93.6 fl (80-96); RBC 3.09 M/mm3 (4.00-5.60); WHITE BLOOD COUNT 16.6 K/mm3 (4.0-10.0)
[2019-03-08 07:17] LABS: BASO % 0.5 % (0-2.0); EOS % 1.1 % (0-4.5); LYMPH % 2.3 % (8-40); MCH 31.2 pg (25.7-33.7); MCHC 33.3 g/dl (32.0-35.9); MEAN PLT VOLUME 10.7 fl (7.5-11.1); MONO % 14.6 % (3.8-10.2); NEUT % 81.5 % (42.8-82.8); PLATELET COUNT 327 K/MM3 (134-434); RDW 15.3 % (11.9-15.9)
[2019-03-08] MEDS: levETIRAcetam 500 MG/5 ML INJECTION VIAL IVPB SCH ×2 (10:41→21:29)
[2019-03-08 11:41] LABS: PLATELET ESTIMATE ADEQUATE
--- NOTE | 2019-03-08 11:45 | PN ---
Progress Note, Physician History of Present Illness: patient stable wbc has increased - Current Medication List Current Medications: Active Medications Atorvastatin Calcium (Lipitor -) 80 mg NGT HS [facility] Last Admin: 03/07/19 21:50 Dose: Not Given Glycerin (Glycerin Suppository Adult -) 1 each [place] DAILY PRN PRN Reason: CONSTIPATION Heparin Sodium (Porcine) (Heparin -) 5,000 unit SQ TID [facility] Last Admin: 03/08/19 06:14 Dose: 5,000 unit Amino Acids (Clinimix -) 1,000 mls @ 75 mls/hr IV Q12H [facility] Last Admin: 03/08/19 06:13 Dose: Not Given Sodium Chloride (Normal Saline -) 1,000 mls @ 42 mls/hr IV ASDIR [facility] Last Admin: 03/07/19 14:21 Dose: 42 mls/hr Piperacillin Sod/Tazobactam (Sod 3.375 gm/ Dextrose) 50 mls @ 100 mls/hr IVPB Q8H-IV [facility]; Protocol Last Admin: 03/08/19 10:42 Dose: 100 mls/hr Levetiracetam (Keppra Injection -) 500 mg IVPB BID [facility] Last Admin: 03/08/19 10:41 Dose: 500 mg Metoprolol Tartrate (Lopressor Injection -) 5 mg IVPUSH Q4H PRN PRN Reason: TACHYCARDIA Last Admin: 03/07/19 10:12 Dose: 5 mg - Objective Vital Signs: Vital Signs Temperature 99.1 F 03/08/19 10:00 Pulse Rate 84 03/08/19 10:00 Respiratory Rate 20 03/08/19 10:00 Blood Pressure 150/62 03/08/19 10:00 O2 Sat by Pulse Oximetry (%) 96 03/07/19 21:00 Constitutional: Yes: No Distress, Calm Cardiovascular: Yes: S1, S2 Respiratory: Yes: Regular, CTA Bilaterally Gastrointestinal: Yes: Soft Musculoskeletal: Yes: WNL Extremities: Yes: Other Neurological: Yes: Alert, Other Psychiatric: Yes: Other Labs: CBC, BMP 03/08/19 05:25 03/08/19 05:25 INR, PTT INR 1.07 (0.83-1.09) 02/27/19 11:00 Assessment/Plan continue current mgmt continue abx avoid aspiration rest as per the team
--- NOTE | 2019-03-08 12:21 | PN ---
Progress Note, [employer] - Note Progress Note: No spontaneous verbalizations or words elicited upon repetition, singing, automatic series. Screaming/vocalizing when suctioned copious secretions but still no spontaneous "no" or any language. Open mouth posture at all times, with dry oral mucosa. Pending PEG insertion. Strict NPO. Selected Entries 03/08/19 03/08/19 03/08/19 02:00 06:00 10:00 Lunch Temperature 97.8 F 97.8 F 99.1 F 03/08/19 11:29 Lunch NPO Temperature Laboratory Tests 03/06/19 03/07/19 03/08/19 06:35 05:20 05:25 WBC 17.2 H 15.3 H 16.6 H CXR noted. Followed by ID.
--- NOTE | 2019-03-08 13:48 | PN ---
Progress Note (short form) - Note Progress Note: Subjective: No events over night . unable to take hx form patient Objective: Vital Signs: Last Vital Signs Temp Pulse Resp BP Pulse Ox 99.1 F 84 20 150/62 96 03/08/19 10:00 03/08/19 10:00 03/08/19 10:00 03/08/19 10:00 03/07/19 21:00 Laboratory Results - last 24 hr 03/07/19 03/08/19 03/08/19 18:24 05:25 05:25 WBC 16.6 H RBC 3.09 L Hgb 9.6 L Hct 28.9 L MCV 93.6 MCH 31.2 MCHC 33.3 RDW 15.3 Plt Count 327 D MPV 10.7 Absolute Neuts (auto) 13.6 H Neutrophils % 81.5 Neutrophils % (Manual) 83.0 H Band Neutrophils % 4.0 Lymphocytes % 2.3 L Lymphocytes % (Manual) 8.0 D Monocytes % 14.6 H Monocytes % (Manual) 3 L Eosinophils % 1.1 Eosinophils % (Manual) 1.0 Basophils % 0.5 Basophils % (Manual) 0.0 Myelocytes % (Man) 1 D Nucleated RBC % 0 Platelet Estimate Adequate Sodium 132 L 135 L Potassium 3.5 3.5 Chloride 101 102 Carbon Dioxide 23 21 Anion Gap 8 12 BUN 34.2 H 30.0 H Creatinine 0.7 0.6 Est GFR (CKD-EPI)AfAm 104.03 110.83 Est GFR (CKD-EPI)NonAf 89.76 95.63 Random Glucose 108 H 103 Calcium 8.2 L 8.4 L Ferritin 1782.8 H Physical Exam: NAD, awake. Dry MM. no facial droop. smiles, non verbal today CV: RRR. 2/6 SM at RUSB Lungs: CTAB anteriorly Abd: soft, tender to palpationin suprapubic area and periumbilical area , ND, NL BS. Mid line surgical scar Ext: No edema or erythema on LE. Neuro: not cooperative, no facial droop, round equal reactive pupils. EOMI. does not cooperate with strength exam,but Lift his R arm of bed and moves his fingers. Reflexes : 2+ knee jerk b/l, and 1+ biceps b/l Unable to assess sensation Skin: R hand dorsum erythema and tenderness is better ASSESSMENT AND PLAN: Patient is a 78 year old male with PMHx of old CVA, HTN, Afib on Xarelto, COPD, who presented form [place] with aphasia and R sided weakness. he was found to have acute L frontal CVA. 1- Large acute L frontal stroke 2- Aphasia, R sided hemiparesis 3- Dysphagia and risk for aspiration 4- worsening leukocytosis 5- Abd pain 6- H/o HTN 7- H/o P A fib Plan : - cont zosyn - CT of abd with IV contrast was not done as no appropriate IV was placed,( hard stick) , will do without contrast -blood cx neg x 72 hrs -can't get MRI as patient is at risk for aspiration with prolonged supine position . will ask neuro if it will pattern changer - will get Ct of head tomorrow before starting AC with eliquis - PEG placement tomorrow - cont BB - DNR/DNI - Hold heparin af5ter MN for PEG placement. Visit type - Emergency Visit Emergency Visit: Yes ED Registration Date: 02/27/19 Care time: The patient presented to the Emergency Department on the above date and was hospitalized for further evaluation of their emergent condition. - New Patient This patient is new to me today: No - Critical Care Critical Care patient: No
[2019-03-08] MEDS: SODIUM CHLORIDE 1,000 ML IV SCH (17:06)
[2019-03-08] MEDS: ATORVASTATIN CA 80 MG TABLET (FP) NGT SCH (21:30)
[2019-03-09] MEDS: SODIUM CHLORIDE 1,000 ML IV SCH ×2 (01:04→16:06)
[2019-03-09] MEDS ORDERED: DEXTROSE 5%-WATER - 50 ML IVPB ONE ×3 (01:06→18:12)
[2019-03-09] MEDS ORDERED: PIPERACILLIN/TAZOBACTAM 3.375 GM VIAL IVPB ONE ×3 (01:06→18:12)
[2019-03-09] MEDS: PIPERACILLIN/TAZOB 3.375 GM 3.375 GM in DEXTROSE 5%-WATER - 50 ML IVPB SCH ×3 (01:13→18:36)
[2019-03-09 06:34] LABS: BASO % 0.5 % (0-2.0); EOS % 0.5 % (0-4.5); HEMOGLOBIN 9.2 GM/dL (11.7-16.9); LYMPH % 2.7 % (8-40); MCH 31.5 pg (25.7-33.7); MCHC 33.9 g/dl (32.0-35.9); MEAN CELL VOLUME 93.2 fl (80-96); MEAN PLT VOLUME 9.7 fl (7.5-11.1); MONO % 17.5 % (3.8-10.2); NEUT % 78.8 % (42.8-82.8); PLATELET COUNT 332 K/MM3 (134-434); RDW 14.9 % (11.9-15.9); WHITE BLOOD COUNT 14.4 K/mm3 (4.0-10.0)
--- NOTE | 2019-03-09 08:46 | PN ---
Teaching Attending Note Name of Resident: Jessica Domenic ATTENDING PHYSICIAN STATEMENT I saw and evaluated the patient. I reviewed the resident's note and discussed the case with the resident. I agree with the resident's findings and plan as documented. SUBJECTIVE: Events noted over night for difficulty with NGT placement and nasal bleed. finally NGT was placed at mid night and confirmed by Xray , but Contrast was started at 5 am. Can't obtain hx form patient at this point. OBJECTIVE: VS reviewed NAD, awake. Dry MM. no facial droop. smiles, non verbal CV: RRR. 2/6 SM at RUSB Lungs: CTAB anteriorly Abd: soft,NT , ND, NL BS. Mid line surgical scar Ext: No edema or erythema on LE. Neuro: not cooperative, no facial droop, round equal reactive pupils. EOMI. does not cooperate with strength exam,but Lift his forearms bed. Reflexes : 2+ knee jerk b/l, and 1+ biceps b/l Unable to assess sensation Skin: R hand dorsum erythema and tenderness are better today ASSESSMENT AND PLAN: Patient is a 78 year old male with PMHx of old CVA, HTN, Afib on Xarelto, COPD, who presented form [place] with aphasia and R sided weakness. he was found to have acute L frontal CVA. 1- Large acute L frontal stroke 2- Aphasia, R sided hemiparesis 3- Dysphagia and risk for aspiration 4- Leukocytosis 5- Abd pain 6- H/o HTN 7- H/o P A fib Plan : - CT reina of Abd and pelvis showed no abscess or colitis , but there is a L sided urinary stent. Willinvestigate when this was placed, as it might be the source of the leukocytosis - cont zosyn for now -blood cx neg to date -can't get MRI as patient is at risk for aspiration with prolonged supine position . 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 ASSESSMENT AND PLAN:
[2019-03-09] MEDS: levETIRAcetam 500 MG/5 ML INJECTION VIAL IVPB SCH ×2 (09:53→21:50)
--- NOTE | 2019-03-09 10:08 | PN ---
Progress Note (short form) - Note Progress Note: 78 year old male history of Stroke, htn, Afib, COPD. Patient is NH patient and came with right sided sided weakness and difficulty swallowing. Patient is sually talkative as per nursing notes. Paitent is able to walk and talkative. Patient right sided seems to be improved. Paitent bp was 175/53. Patient failed swallowing test, and He is NPO. Patient had repeat ct head and it showed new subacute left frontal lobe stroke There is no deviation was seen, patient is able to follow simple command. He pulled out his ng tube and he is due for PEG tube placement today NEUROLOGICAL EXAMINATION Alert and aphasic , neck is supple afebrile he seems more quiet and able to follow simple command patient is aphasic and not able to express, no conjugate eye deviation was identified eomi, pupils reactive moving all extremity ct head showed large post temporal infarct CTA head unremarkable, carotid ultrasound report appreciated. repeat ct head on march 03 showed large subacute left frontal lobe infarct Assessment/Plan78 year old male with history of atrial fibrillation and old stroke came with right hemiparesis and dysphagia and hemiparesis seems to be resolved, patient still have aphasia, ( apparently there is chagne in his status from baseline) . a new subacute left frontal lobe infarct idenfied He failed swallowing test Plan: repeat ct head and anticoagulation can be resumed now , if ok with primary - once anticoagulation resumed and aspirin can be stopped, continue statin dvt prophylaxis, PT -supportive care ng tube placement today Thanking you so much Tonio
[2019-03-09 10:46] LABS: MACROCYTOSIS 0; PLATELET ESTIMATE NORMAL; TEAR DROP CELLS 1+
--- NOTE | 2019-03-09 11:54 | PN ---
Progress Note, Physician - Current Medication List Current Medications: Active Medications Atorvastatin Calcium (Lipitor -) 80 mg NGT HS AMINA Last Admin: 03/08/19 21:30 Dose: Not Given Glycerin (Glycerin Suppository Adult -) 1 each [place] DAILY PRN PRN Reason: CONSTIPATION Heparin Sodium (Porcine) (Heparin -) 5,000 unit SQ TID AMINA Last Admin: 03/08/19 21:31 Dose: Not Given Amino Acids (Clinimix -) 1,000 mls @ 75 mls/hr IV Q12H AMINA Last Admin: 03/08/19 17:07 Dose: Not Given Sodium Chloride (Normal Saline -) 1,000 mls @ 42 mls/hr IV ASDIR AMINA Last Admin: 03/09/19 01:04 Dose: 42 mls/hr Piperacillin Sod/Tazobactam (Sod 3.375 gm/ Dextrose) 50 mls @ 100 mls/hr IVPB Q8H-IV AMINA; Protocol Last Admin: 03/09/19 09:52 Dose: 100 mls/hr Levetiracetam (Keppra Injection -) 500 mg IVPB BID AMINA Last Admin: 03/09/19 09:53 Dose: 500 mg Metoprolol Tartrate (Lopressor Injection -) 5 mg IVPUSH Q4H PRN PRN Reason: TACHYCARDIA Last Admin: 03/07/19 10:12 Dose: 5 mg - Objective Vital Signs: Vital Signs Temperature 98.1 F 03/09/19 09:35 Pulse Rate 87 03/09/19 09:35 Respiratory Rate 20 03/09/19 09:35 Blood Pressure 154/54 L 03/09/19 09:35 O2 Sat by Pulse Oximetry (%) 94 L 03/08/19 21:00 Labs: CBC, BMP 03/09/19 05:25 03/08/19 05:25 INR, PTT INR 1.07 (0.83-1.09) 02/27/19 11:00
--- NOTE | 2019-03-09 15:05 | PN ---
Physical Exam: SUBJECTIVE: Patient was seen in the morning. Was unable to verbalize and engage in conversation. However patient does look at examiner when he is called by his name. OBJECTIVE: Vital Signs Period Temp Pulse Resp BP Sys/Charles Pulse Ox Last 24 Hr 98 F-98.4 F 80-92 20-20 140-154/54-57 94-98 GENERAL: The patient is awake and alert. HEAD: Normal with no signs of trauma. EYES: PERRL, extraocular movements intact, sclera anicteric, conjunctiva clear. No ptosis. ENT: Ears normal, nares patent, oropharynx clear without exudates, moist mucous membranes. NG tube is in place. LUNGS: Breath sounds equal, clear to auscultation bilaterally, no wheezes, no crackles, no accessory muscle use. HEART: Regular rate and rhythm, S1, S2 without murmur, rub or gallop. ABDOMEN: Soft, nontender, nondistended, normoactive bowel sounds, no guarding. EXTREMITIES: 2+ pulses, warm, well-perfused, no edema. NEUROLOGICAL: Cranial nerves II- in tact. Unable to assess VII-XI. Unable to verbalize. Right lower extremity is 1/6 strength. Left lower extremity is 3/6 strength. SKIN: Warm, dry, normal turgor, no rashes or lesions noted Laboratory Results - last 24 hr 03/07/19 03/09/19 05:20 05:25 WBC 14.4 H RBC 2.90 L Hgb 9.2 L Hct 27.0 L MCV 93.2 MCH 31.5 MCHC 33.9 RDW 14.9 Plt Count 332 MPV 9.7 Absolute Neuts (auto) 11.3 H Neutrophils % 78.8 Neutrophils % (Manual) 66.3 D Band Neutrophils % 4.9 Lymphocytes % 2.7 L Lymphocytes % (Manual) 3.0 L D Monocytes % 17.5 H Monocytes % (Manual) 24 H D Eosinophils % 0.5 Eosinophils % (Manual) 0.0 D Basophils % 0.5 Basophils % (Manual) 0.0 Myelocytes % (Man) 2 D Promyelocytes % (Man) 0 Blast Cells % (Manual) 0 Nucleated RBC % 0 Metamyelocytes 0 Hypochromia 0 Platelet Estimate Normal Polychromasia 0 Poikilocytosis 1+ Macrocytosis 0 Tear Drop Cells 1+ Fragmented RBCs 1+ Sodium 134 L Potassium 3.4 L Chloride 101 Carbon Dioxide 24 Anion Gap 9 BUN 36.9 H Creatinine 0.7 Est GFR (CKD-EPI)AfAm 104.03 Est GFR (CKD-EPI)NonAf 89.76 Random Glucose 110 H Calcium 8.1 L Iron 24 L TIBC 144 L Iron Saturation 16 L Unsaturated IBC 120 L Vitamin B12 327 Serum Folate 13 Active Medications Generic Name Dose Route Start Last Admin Trade Name Freq PRN Reason Stop Dose Admin Atorvastatin Calcium 80 mg 03/03/19 22:00 03/08/19 21:30 Lipitor - NGT Not Given HS AMINA Glycerin 1 each 03/05/19 10:30 Glycerin Suppository Adult - [place] DAILY PRN CONSTIPATION Heparin Sodium (Porcine) 5,000 unit 03/05/19 22:00 03/08/19 21:31 Heparin - SQ Not Given TID AMINA Amino Acids 1,000 mls @ 75 mls/hr 03/02/19 17:30 03/08/19 17:07 Clinimix - IV Not Given Q12H AMINA Sodium Chloride 1,000 mls @ 42 mls/hr 03/04/19 16:45 03/09/19 01:04 Normal Saline - IV 42 mls/hr ASDIR AMINA Administration Piperacillin Sod/Tazobactam 50 mls @ 100 mls/hr 03/06/19 14:15 03/09/19 09:52 Sod 3.375 gm/ Dextrose IVPB 100 mls/hr Q8H-IV AMINA Administration Protocol Levetiracetam 500 mg 03/05/19 22:00 03/09/19 09:53 Keppra Injection - IVPB 500 mg BID AMINA Administration Metoprolol Tartrate 5 mg 03/05/19 21:19 03/07/19 10:12 Lopressor Injection - IVPUSH 5 mg Q4H PRN Administration TACHYCARDIA ASSESSMENT/PLAN: 78 M with PMH of prior CVA, HTN, Afib on Xarelto, COPD who presented with right sided weakness and aphasia due to new ischemic stroke. 1) Ischemic Stroke with aphasia and right sided hemiparesis -Large nonhemorrhagic stroke acute/subacute infarct in left frontal lobe, laterally at the level of the haider radiata, and centrum semiovale b/l. -CT Scan of head today to follow up that there is no hemorrhagic conversion of stroke -Confirmed with Dr. Mills that MRI is not needed -Continue Atorvastatin Calcium 80 mg -Continue Keppra 500 mg IVPB -Echo showed EF of 55-60% -Carotid U/S showed no acute pathology 2) Dysphagia -PEG tomorrow -Will update Daughter, Christiane tomorrow with progress at [phone]. -Has failed swallow eval 3)Leukocytosis -Improving, WBC 14.4 -CT abdomen showed Left Uretral stent, daughter unaware of why it was placed. In process of contacting [facility]- Dr. Marika Molina former PCP, to know why stent is in place -Continue Zosyn 50 mL Q8H 4)History of Paroxysmal Afib -Holding Anticoagulation until head CT and PEG tube is inserted. 5) Anemia -Likely due to chronic anemia. Continue monitoring Hgb. F: NS @ 42 ml/hr, clinimix at 75 ml/hr E: Monitor CMP N: NPO DVT prophylaxis: SCD Visit type - Emergency Visit Emergency Visit: Yes ED Registration Date: 02/27/19 Care time: The patient presented to the Emergency Department on the above date and was hospitalized for further evaluation of their emergent condition. - New Patient This patient is new to me today: Yes Date on this admission: 03/09/19 - Critical Care Critical Care patient: No ATTENDING PHYSICIAN STATEMENT I saw and evaluated the patient. I reviewed the resident's note and discussed the case with the resident. I agree with the resident's findings and plan as documented. SUBJECTIVE: OBJECTIVE: ASSESSMENT AND PLAN:
[2019-03-09] MEDS: AMINO ACIDS 4.25%/D5W 1,000 ML IV SCH (16:06)
[2019-03-09] MEDS: ATORVASTATIN CA 80 MG TABLET (FP) NGT SCH (22:01)
[2019-03-10] MEDS ORDERED: DEXTROSE 5%-WATER - 50 ML IVPB ONE ×3 (01:41→17:01)
[2019-03-10] MEDS ORDERED: PIPERACILLIN/TAZOBACTAM 3.375 GM VIAL IVPB ONE ×3 (01:41→17:01)
[2019-03-10] MEDS: PIPERACILLIN/TAZOB 3.375 GM 3.375 GM in DEXTROSE 5%-WATER - 50 ML IVPB SCH ×3 (02:07→17:02)
[2019-03-10] MEDS: HEPARIN NA (PORCINE) 5,000 UNITS/ML 1ML VIAL SQ SCH ×3 (06:15→21:53)
[2019-03-10 07:15] LABS: BASO % 0.5 % (0-2.0); EOS % 0.8 % (0-4.5); HEMATOCRIT 24.8 % (35.4-49); HEMOGLOBIN 8.4 GM/dL (11.7-16.9); LYMPH % 2.5 % (8-40); MCH 31.5 pg (25.7-33.7); MEAN CELL VOLUME 92.8 fl (80-96); MEAN PLT VOLUME 9.5 fl (7.5-11.1); MONO % 18.3 % (3.8-10.2); NEUT % 77.9 % (42.8-82.8); PLATELET COUNT 331 K/MM3 (134-434); RBC 2.67 M/mm3 (4.00-5.60); RDW 15.3 % (11.9-15.9); WHITE BLOOD COUNT 13.5 K/mm3 (4.0-10.0)
[2019-03-10 07:58] LABS: BILIRUBIN,TOTAL 0.5 mg/dL (0.2-1); BLOOD UREA NITROGEN 21.8 mg/dL (7-18); CALCIUM 8.1 mg/dL (8.5-10.1); CREATININE 0.6 mg/dL (0.55-1.3); POTASSIUM 3.3 mmol/L (3.5-5.1); TOT PROT 5.7 g/dl (6.4-8.2)
[2019-03-10 08:58] LABS: ANISOCYTOSIS 0; MACROCYTOSIS 0; PLATELET ESTIMATE NORMAL
[2019-03-10] MEDS: KCL 10 MEQ IVPB 10 MEQ/100 ML INFUS.BAG IVPB SCH ×2 (09:59→10:08)
[2019-03-10] MEDS: levETIRAcetam 500 MG/5 ML INJECTION VIAL IVPB SCH ×2 (10:07→21:53)
--- NOTE | 2019-03-10 12:20 | PN ---
Progress Note, HEALTH CARE ADMINISTRATOR - Note Progress Note: Selected Entries 03/09/19 03/09/19 03/09/19 02:00 05:36 09:35 Lunch Temperature 98.1 F 98 F 98.1 F 03/09/19 03/09/19 03/09/19 14:00 17:00 21:00 Lunch Temperature 99.1 F 98.3 F 98.4 F 03/10/19 03/10/19 03/10/19 01:00 06:00 11:47 Lunch NPO Temperature 96.8 F L 98.4 F Laboratory Tests 03/09/19 03/10/19 05:25 05:40 WBC 14.4 H 13.5 H Still requiring suctioning with secretions in posterior pharynx. Pending PEG
--- NOTE | 2019-03-10 13:28 | PN ---
Progress Note, Physician - Current Medication List Current Medications: Active Medications Atorvastatin Calcium (Lipitor -) 80 mg NGT HS AMINA Last Admin: 03/09/19 22:01 Dose: Not Given Glycerin (Glycerin Suppository Adult -) 1 each [place] DAILY PRN PRN Reason: CONSTIPATION Heparin Sodium (Porcine) (Heparin -) 5,000 unit SQ TID AMINA Last Admin: 03/10/19 06:15 Dose: Not Given Sodium Chloride (Normal Saline -) 1,000 mls @ 42 mls/hr IV ASDIR AMINA Last Admin: 03/09/19 16:06 Dose: 42 mls/hr Piperacillin Sod/Tazobactam (Sod 3.375 gm/ Dextrose) 50 mls @ 100 mls/hr IVPB Q8H-IV AMINA; Protocol Last Admin: 03/10/19 10:07 Dose: 100 mls/hr Levetiracetam (Keppra Injection -) 500 mg IVPB BID AMINA Last Admin: 03/10/19 10:07 Dose: 500 mg Metoprolol Tartrate (Lopressor Injection -) 5 mg IVPUSH Q4H PRN PRN Reason: TACHYCARDIA Last Admin: 03/07/19 10:12 Dose: 5 mg - Objective Vital Signs: Vital Signs Temperature 98.4 F 03/10/19 06:00 Pulse Rate 88 03/10/19 06:00 Respiratory Rate 20 03/10/19 06:00 Blood Pressure 135/70 03/10/19 06:00 O2 Sat by Pulse Oximetry (%) 93 L 03/09/19 21:00 Labs: CBC, BMP 03/10/19 05:40 03/10/19 05:40 INR, PTT INR 1.07 (0.83-1.09) 02/27/19 11:00
--- NOTE | 2019-03-10 13:49 | PN ---
Physical Exam: SUBJECTIVE: Patient seen and examined in the morning. Was alert and responded to name. Unable to verbalize and could not respond to questions about chest pain , shortness of breath and abdominal pain. OBJECTIVE: Vital Signs Period Temp Pulse Resp BP Sys/Charles Pulse Ox Last 24 Hr 96.8 F-99.1 F 80-89 20-20 135-162/47-70 93 GENERAL: The patient is awake, alert. HEAD: Normal with no signs of trauma. EYES: PERRL, extraocular movements intact, sclera anicteric, conjunctiva clear. No ptosis. NECK: Trachea midline, full range of motion, supple. HEART: Regular rate and rhythm, S1, S2 without murmur, rub or gallop. ABDOMEN: Soft, nontender, nondistended, normoactive bowel sounds. EXTREMITIES: 2+ pulses, warm, well-perfused, no edema. Moving upper and lower extremities against gravity. NEUROLOGICAL: Cranial nerves II through XII grossly intact. Unable to speak today. SKIN: Warm, dry, normal turgor, no rashes or lesions noted Laboratory Results - last 24 hr 03/10/19 03/10/19 05:40 05:40 WBC 13.5 H RBC 2.67 L Hgb 8.4 L Hct 24.8 L MCV 92.8 MCH 31.5 MCHC 34.0 RDW 15.3 Plt Count 331 MPV 9.5 Absolute Neuts (auto) 10.5 H Neutrophils % 77.9 Neutrophils % (Manual) 67.3 Band Neutrophils % 7.9 Lymphocytes % 2.5 L Lymphocytes % (Manual) 3.0 L Monocytes % 18.3 H Monocytes % (Manual) 19 H Eosinophils % 0.8 Eosinophils % (Manual) 0.0 Basophils % 0.5 Basophils % (Manual) 0.0 Myelocytes % (Man) 3 H D Promyelocytes % (Man) 0 Blast Cells % (Manual) 0 Nucleated RBC % 0 Metamyelocytes 0 Hypochromia 0 Platelet Estimate Normal Polychromasia 0 Poikilocytosis 0 Anisocytosis 0 Microcytosis 0 Macrocytosis 0 Sodium 135 L Potassium 3.3 L Chloride 101 Carbon Dioxide 26 Anion Gap 8 BUN 21.8 H Creatinine 0.6 Est GFR (CKD-EPI)AfAm 110.83 Est GFR (CKD-EPI)NonAf 95.63 Random Glucose 116 H Calcium 8.1 L Total Bilirubin 0.5 AST 43 H ALT 32 Alkaline Phosphatase 113 Total Protein 5.7 L Albumin 2.0 L Active Medications Generic Name Dose Route Start Last Admin Trade Name Freq PRN Reason Stop Dose Admin Atorvastatin Calcium 80 mg 03/03/19 22:00 03/09/19 22:01 Lipitor - NGT Not Given HS AMINA Glycerin 1 each 03/05/19 10:30 Glycerin Suppository Adult - [place] DAILY PRN CONSTIPATION Heparin Sodium (Porcine) 5,000 unit 03/05/19 22:00 03/10/19 06:15 Heparin - SQ Not Given TID AMINA Sodium Chloride 1,000 mls @ 42 mls/hr 03/04/19 16:45 03/09/19 16:06 Normal Saline - IV 42 mls/hr ASDIR AMINA Administration Piperacillin Sod/Tazobactam 50 mls @ 100 mls/hr 03/06/19 14:15 03/10/19 10:07 Sod 3.375 gm/ Dextrose IVPB 100 mls/hr Q8H-IV AMINA Administration Protocol Levetiracetam 500 mg 03/05/19 22:00 03/10/19 10:07 Keppra Injection - IVPB 500 mg BID AMINA Administration Metoprolol Tartrate 5 mg 03/05/19 21:19 03/07/19 10:12 Lopressor Injection - IVPUSH 5 mg Q4H PRN Administration TACHYCARDIA ASSESSMENT/PLAN: 78 M with PMH of prior CVA, HTN, Afib on Xarelto, COPD who presented with right sided weakness and aphasia due to new ischemic stroke. 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 -Large nonhemorrhagic stroke acute/subacute infarct in left frontal lobe, laterally at the level of the haider radiata, and centrum semiovale b/l. -CT Scan of head today to follow up that there is no hemorrhagic conversion of stroke -Confirmed with Dr. Mills that MRI is not needed -Continue Atorvastatin Calcium 80 mg -Continue Keppra 500 mg IVPB -Echo showed EF of 55-60% -Carotid U/S showed no acute pathology 2) Dysphagia -PEG tomorrow via GI. patient consented. -Will update DaughterChristiane tomorrow with progress at [phone]. -Has failed swallow eval, still requires suctioning. 3)Leukocytosis -Improving, WBC 14.4 -CT abdomen showed Left Uretral stent, daughter unaware of why it was placed. In process of contacting [facility]- Dr. Marika Molina former PCP, to know why stent is in place -Continue Zosyn 50 mL Q8H 4)History of Paroxysmal Afib -Holding Anticoagulation until head CT and PEG tube is inserted. 5) Anemia -Likely due to chronic anemia. Continue monitoring Hgb. F: NS @ 42 ml/hr, clinimix at 75 ml/hr E: Monitor CMP N: NPO DVT prophylaxis: SCD Visit type - Emergency Visit Emergency Visit: Yes ED Registration Date: 02/27/19 Care time: The patient presented to the Emergency Department on the above date and was hospitalized for further evaluation of their emergent condition. - New Patient This patient is new to me today: No - Critical Care Critical Care patient: No ATTENDING PHYSICIAN STATEMENT I saw and evaluated the patient. I reviewed the resident's note and discussed the case with the resident. I agree with the resident's findings and plan as documented. SUBJECTIVE: OBJECTIVE: ASSESSMENT AND PLAN:
--- NOTE | 2019-03-10 16:43 | PN ---
Teaching Attending Note Name of Resident: Jessica Sheth ATTENDING PHYSICIAN STATEMENT I saw and evaluated the patient. I reviewed the resident's note and discussed the case with the resident. I agree with the resident's findings and plan as documented. SUBJECTIVE: Events over night with noted for trial of NGT placement that failed x 2 OBJECTIVE: NAD, Awake. Dry MM. no facial droop. smiles, non verbal CV: RRR. 2/6 SM at RUSB Lungs: CTAB anteriorly Abd: soft, NT , ND, NL BS. Mid line surgical scar Ext: No edema or erythema on LE. Neuro: not cooperative, no facial droop, round equal reactive pupils. EOMI. does not cooperate with strength exam,but Lift his forearms off the bed. Reflexes : 2+ knee jerk b/l, and 1+ biceps b/l Unable to assess sensation Skin: R hand dorsum erythema and tenderness resolved ASSESSMENT AND PLAN: Patient is a 78 year old male with PMHx of old CVA, HTN, Afib on Xarelto, COPD, who presented form [place] with aphasia and R sided weakness. he was found to have acute L frontal CVA. 1- Large acute L frontal stroke 2- Aphasia, R sided hemiparesis 3- Dysphagia and risk for aspiration 4- Leukocytosis 5- Abd pain 6- H/o HTN 7- H/o P A fib Plan : - cont zosyn for now - Was not able to tell when the L ureter stent was placed, daughter is not aware of stent placement . willcont to investigate tomorrow - if can't figure it out, will consult urology - blood cx neg to date -can't get MRI as patient is at risk for aspiration with prolonged supine position . Neurologist agree that it will not globe changer - Repeat CT scan reviewed. can start Eliquis after PEG placement - can't place NGT fro IR placement of PEG, multiple attempts by MDs and Rns x 2 nights. will consult GI for PEG placement - cont BB - Cont IVf and clinimix - DNR/DNI - Hold heparin after MN for possible PEG placement. Anticipate dc to rehab after PEG placement. ASSESSMENT AND PLAN:
--- NOTE | 2019-03-10 17:25 | CON.GI ---
Consult Consult Specialty:: GI Referred by:: Hospitalist Service Reason for Consultation:: S/P CVA. Dysphagia - History of Present Illness Chief Complaint: S/P CVA w/ Dysphagia History of Present Illness: 78M s/p CVA. Unsuccessful attempts made to place NGT for feeds and IR placed G- Tube. It was successfullt placed once but per the medicine resident Mr. Alfa mcmillan pulled it out even while he was wearing mittens. Patient's daughter uncertain when the left ureteral stent was placed. - History Source History Provided By: Family Member (daughter), Medical Record - Past Medical History Cardio/Vascular: Yes: Other (Valvular heart disease) Pulmonary: Yes: Asthma - Past Surgical History Past Surgical History: Yes: Cataract Removal (? cataract removal left eye) Additional Surgical History: Thoracotomy scar: Daughter states he had heart valve replacement (not metallic). Mid abdominal wall scar: ? colon surgery ( clips at level of sigmoid). 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) - Smoking History Smoking history: Former smoker (3 PPD x 30+ years, quit 1993) Have you smoked in the past 12 months: No - Social History Place of : [facility] History of Recent Travel: No Home Medications - Allergies Allergies/Adverse Reactions: Allergies Allergy/AdvReac Type Severity Reaction Status Date / Time No Known Allergies Allergy Verified 02/27/19 22:24 - Home Medications Home Medications: Ambulatory Orders Acetaminophen [Tylenol] 650 mg PO Q8H 02/28/19 Atorvastatin Ca [Lipitor] 80 mg PO HS 02/28/19 Calcium 250Mg/Vit-D 125 Units [Oscal 250 mg+D -] 1 combo PO BID 02/28/19 Carbamazepine 200 mg PO BID 02/28/19 Ceramides 1,3,6-11 [Cerave] 355 ml TP DAILY 02/28/19 Darbepoetin Odin in Polysorbat [Aranesp] 100 mcg IJ MONTHLY 02/28/19 Ferrous Gluconate [Ferate] 240 mg PO DAILY 02/28/19 Folic Acid 400 mcg PO DAILY 02/28/19 Gabapentin 600 mg PO BID 02/28/19 Lidocaine HCl [Aspercreme] 76.5 gm TP DAILY 02/28/19 Metoprolol Succinate [Toprol Xl] 100 mg PO DAILY 02/28/19 Niacin 500 mg PO HS 02/28/19 Pregabalin [Lyrica] 50 mg PO BID 02/28/19 Rivaroxaban [Xarelto -] 20 mg PO DAILY 02/28/19 Tamsulosin HCl [Flomax] 0.8 mg PO DAILY 02/28/19 Family Medical History Other Family History: No family history of colorectal cancer Review of Systems Unable to obtain ROS, reason: Patient non verbal Physical Exam-GI Vital Signs: Vital Signs Temperature 98 F 03/10/19 14:15 Pulse Rate 84 03/10/19 14:15 Respiratory Rate 22 H 03/10/19 14:15 Blood Pressure 134/68 03/10/19 14:15 O2 Sat by Pulse Oximetry (%) 93 L 03/09/19 21:00 Constitutional: Yes: Calm Eyes: No: Sclera Icterus Cardiovascular: Yes: Regular Rate and Rhythm, Murmur (2/6 PENELOPE at RSB) Respiratory: Yes: Diminished (at bases bilaterally with poor insp effort) Gastrointestinal Inspection: Yes: Scars (sternotomy scar extending to upper abdomen. Mid vertical surgical scar). No: Distention ...Auscultate: Yes: Normoactive Bowel Sounds ...Palpate: Yes: Soft. No: Tenderness (No grimacing upon palpation) ...Percussion: No: Tympanitic Edema: No (No LE edema) Neurological: Yes: Alert Labs: CBC, BMP 03/10/19 05:40 03/10/19 05:40 INR, PTT INR 1.07 (0.83-1.09) 02/27/19 11:00 Problem List - Problems (1) Dysphagia Assessment/Plan: NGT has been unable to be placed and therefore initial plan of IR placed G-Tube unable to be performed. Called Mr. Bloom's daughter majo this evening and discussed PEG as an option. Discussed potential risks of the procedure like but not limited to bleeding, perforation requiring surgery to repair, infection , sedation medication effects, aspiration of feeds, perotinitis if the tube was prematurely dislodged, all of which could be potentially life threatening. she has agreed to the procedure and consent witnessed by 4W nursing staff. NPO after midnight AM Labs Continue to hold NOAC Problems reviewed: Yes Code(s): R13.10 - DYSPHAGIA, UNSPECIFIED Qualifiers: Dysphagia type: unspecified Qualified Code(s): R13.10 - Dysphagia, unspecified
[2019-03-10] MEDS: SODIUM CHLORIDE 1,000 ML IV SCH (21:53)
[2019-03-10] MEDS: ATORVASTATIN CA 80 MG TABLET (FP) NGT SCH (22:07)
[2019-03-11] MEDS ORDERED: PIPERACILLIN/TAZOBACTAM 3.375 GM VIAL IVPB ONE ×3 (01:23→17:57)
[2019-03-11] MEDS ORDERED: DEXTROSE 5%-WATER - 50 ML IVPB ONE ×3 (01:23→17:57)
[2019-03-11] MEDS: PIPERACILLIN/TAZOB 3.375 GM 3.375 GM in DEXTROSE 5%-WATER - 50 ML IVPB SCH ×3 (01:33→17:59)
[2019-03-11 06:56] LABS: BASO % 0.5 % (0-2.0); HEMATOCRIT 25.2 % (35.4-49); HEMOGLOBIN 8.5 GM/dL (11.7-16.9); LYMPH % 3.5 % (8-40); MCH 31.2 pg (25.7-33.7); MCHC 33.8 g/dl (32.0-35.9); MEAN CELL VOLUME 92.4 fl (80-96); MEAN PLT VOLUME 9.6 fl (7.5-11.1); PLATELET COUNT 388 K/MM3 (134-434); RBC 2.73 M/mm3 (4.00-5.60); RDW 15.3 % (11.9-15.9); WHITE BLOOD COUNT 12.6 K/mm3 (4.0-10.0)
[2019-03-11 07:13] LABS: ALBUMIN 2.1 g/dl (3.4-5.0); BILIRUBIN,TOTAL 0.6 mg/dL (0.2-1); BLOOD UREA NITROGEN 15.2 mg/dL (7-18); CREATININE 0.6 mg/dL (0.55-1.3); POTASSIUM 3.5 mmol/L (3.5-5.1)
[2019-03-11 09:24] LABS: PROTHROMBIN TIME (PATIENT) 62.9 SEC (9.7-13.0)
[2019-03-11 10:11] LABS: INR 5.24 (0.83-1.09)
[2019-03-11] MEDS: levETIRAcetam 500 MG/5 ML INJECTION VIAL IVPB SCH ×2 (10:28→22:10)
--- NOTE | 2019-03-11 11:28 | PN ---
Progress Note, MICA PARTS SPRAYER - Note Progress Note: Selected Entries 03/09/19 03/09/19 03/09/19 02:00 05:36 09:35 Lunch Temperature 98.1 F 98 F 98.1 F 03/09/19 03/09/19 03/09/19 14:00 17:00 21:00 Lunch Temperature 99.1 F 98.3 F 98.4 F 03/10/19 03/10/19 03/10/19 01:00 06:00 11:47 Lunch NPO Temperature 96.8 F L 98.4 F Laboratory Tests 03/09/19 03/10/19 05:25 05:40 WBC 14.4 H 13.5 H Selected Entries 03/10/19 03/10/19 03/10/19 01:00 06:00 11:47 Lunch NPO Temperature 96.8 F L 98.4 F 03/10/19 03/10/19 03/10/19 14:15 18:00 22:00 Lunch Temperature 98 F 98.2 F 98.4 F 03/11/19 03/11/19 02:00 05:36 Lunch Temperature 98.1 F 98.2 F Laboratory Tests 03/10/19 03/11/19 05:40 05:45 WBC 13.5 H 12.6 H Aphasia with no improvement in communication at this time. Prognosis for expressive language improvement is guarded. Seems to understand simple language. Still requiring suctioning with secretions in posterior pharynx. Pending PEG
[2019-03-11 11:59] LABS: MACROCYTOSIS 0; PLATELET ESTIMATE NORMAL
--- NOTE | 2019-03-11 12:29 | PN ---
Progress Note, Physician - Current Medication List Current Medications: Active Medications Atorvastatin Calcium (Lipitor -) 80 mg NGT HS AMINA Last Admin: 03/10/19 22:07 Dose: Not Given Glycerin (Glycerin Suppository Adult -) 1 each [place] DAILY PRN PRN Reason: CONSTIPATION Heparin Sodium (Porcine) (Heparin -) 5,000 unit SQ TID AMINA Last Admin: 03/10/19 21:53 Dose: 5,000 unit Sodium Chloride (Normal Saline -) 1,000 mls @ 42 mls/hr IV ASDIR AMINA Last Admin: 03/10/19 21:53 Dose: 42 mls/hr Piperacillin Sod/Tazobactam (Sod 3.375 gm/ Dextrose) 50 mls @ 100 mls/hr IVPB Q8H-IV AMINA; Protocol Last Admin: 03/11/19 10:28 Dose: 100 mls/hr Levetiracetam (Keppra Injection -) 500 mg IVPB BID AMINA Last Admin: 03/11/19 10:28 Dose: 500 mg Metoprolol Tartrate (Lopressor Injection -) 5 mg IVPUSH Q4H PRN PRN Reason: TACHYCARDIA Last Admin: 03/07/19 10:12 Dose: 5 mg - Objective Vital Signs: Vital Signs Temperature 98.2 F 03/11/19 05:36 Pulse Rate 89 03/11/19 05:36 Respiratory Rate 20 03/11/19 05:36 Blood Pressure 157/55 L 03/11/19 05:36 O2 Sat by Pulse Oximetry (%) 96 03/10/19 21:00 Labs: CBC, BMP 03/11/19 05:45 03/11/19 05:45 INR, PTT INR 5.24 (0.83-1.09) H* 03/11/19 08:44
--- NOTE | 2019-03-11 14:33 | PN ---
Progress Note (short form) - Note Progress Note: EGD/PEG cancelled today due to elevated INR 5. Unclear etiology, has not recently received coumadin. Last dose rectal ASA on 03/05. Recommend repeat PT/ INR. If remains elevated may need hematology consult. If erroneous and normalized (aim INR <1.5) could tentatively plan for EGD/PEG tomorrow. Discussed with pts daughter by phone. Discussed above with medicine resident.
--- NOTE | 2019-03-11 15:59 | PN ---
Physical Exam: SUBJECTIVE: Patient seen and examined in the morning. No acute events overnight. Was alert and awake, but not unable to respond verbally. He is unable to communicate with examiner in regards to chest pain, abdominal pain, and shortness of breath. OBJECTIVE: Vital Signs Period Temp Pulse Resp BP Sys/Charles Pulse Ox Last 24 Hr 98.1 F-98.4 F 82-92 20-22 138-157/55-81 96 GENERAL: The patient is awake, alert. HEAD: Normal with no signs of trauma. EYES: PERRL, extraocular movements intact, sclera anicteric, conjunctiva clear. No ptosis. NECK: Trachea midline, full range of motion, supple. HEART: Regular rate and rhythm, S1, S2 without murmur, rub or gallop. ABDOMEN: Soft, nontender, nondistended, normoactive bowel sounds. EXTREMITIES: 2+ pulses, warm, well-perfused, no edema. Moving upper and lower extremities on the left against gravity. Unable to move upper extremity on the right against gravity. NEUROLOGICAL: Cranial nerves II through grossly intact. Unable to speak today. SKIN: Warm, dry, normal turgor, no rashes or lesions noted Laboratory Results - last 24 hr 03/11/19 03/11/19 03/11/19 05:45 05:45 05:45 WBC 12.6 H RBC 2.73 L Hgb 8.5 L Hct 25.2 L MCV 92.4 MCH 31.2 MCHC 33.8 RDW 15.3 Plt Count 388 MPV 9.6 Absolute Neuts (auto) 10.0 H Neutrophils % 79.0 Neutrophils % (Manual) 74.0 Band Neutrophils % 4.0 Lymphocytes % 3.5 L D Lymphocytes % (Manual) 2.0 L D Monocytes % 16.0 H Monocytes % (Manual) 15 H Eosinophils % 1.0 Eosinophils % (Manual) 0.0 Basophils % 0.5 Basophils % (Manual) 0.0 Myelocytes % (Man) 4 H D Promyelocytes % (Man) 0 Blast Cells % (Manual) 0 Nucleated RBC % 0 Metamyelocytes 1 D Hypochromia 0 Platelet Estimate Normal Polychromasia 0 Poikilocytosis 0 Macrocytosis 0 PT with INR INR Sodium 138 Potassium 3.5 Chloride 104 Carbon Dioxide 25 Anion Gap 9 BUN 15.2 Creatinine 0.6 Est GFR (CKD-EPI)AfAm 110.83 Est GFR (CKD-EPI)NonAf 95.63 Random Glucose 89 Calcium 8.0 L Total Bilirubin 0.6 AST 44 H ALT 31 Alkaline Phosphatase 119 H Total Protein 6.0 L Albumin 2.1 L Blood Type O POSITIVE Antibody Screen Negative 03/11/19 08:44 WBC RBC Hgb Hct MCV MCH MCHC RDW Plt Count MPV Absolute Neuts (auto) Neutrophils % Neutrophils % (Manual) Band Neutrophils % Lymphocytes % Lymphocytes % (Manual) Monocytes % Monocytes % (Manual) Eosinophils % Eosinophils % (Manual) Basophils % Basophils % (Manual) Myelocytes % (Man) Promyelocytes % (Man) Blast Cells % (Manual) Nucleated RBC % Metamyelocytes Hypochromia Platelet Estimate Polychromasia Poikilocytosis Macrocytosis PT with INR 62.90 H INR 5.24 H* Sodium Potassium Chloride Carbon Dioxide Anion Gap BUN Creatinine Est GFR (CKD-EPI)AfAm Est GFR (CKD-EPI)NonAf Random Glucose Calcium Total Bilirubin AST ALT Alkaline Phosphatase Total Protein Albumin Blood Type Antibody Screen Active Medications Generic Name Dose Route Start Last Admin Trade Name Freq PRN Reason Stop Dose Admin Atorvastatin Calcium 80 mg 03/03/19 22:00 03/10/19 22:07 Lipitor - NGT Not Given HS AMINA Glycerin 1 each 03/05/19 10:30 Glycerin Suppository Adult - [place] DAILY PRN CONSTIPATION Heparin Sodium (Porcine) 5,000 unit 03/05/19 22:00 03/10/19 21:53 Heparin - SQ 5,000 unit TID AMINA Administration Sodium Chloride 1,000 mls @ 42 mls/hr 03/04/19 16:45 03/10/19 21:53 Normal Saline - IV 42 mls/hr ASDIR AMINA Administration Piperacillin Sod/Tazobactam 50 mls @ 100 mls/hr 03/06/19 14:15 03/11/19 10:28 Sod 3.375 gm/ Dextrose IVPB 100 mls/hr Q8H-IV AMINA Administration Protocol Levetiracetam 500 mg 03/05/19 22:00 03/11/19 10:28 Keppra Injection - IVPB 500 mg BID AMINA Administration Metoprolol Tartrate 5 mg 03/05/19 21:19 03/07/19 10:12 Lopressor Injection - IVPUSH 5 mg Q4H PRN Administration TACHYCARDIA ASSESSMENT/PLAN: 78 M with PMH of prior CVA, HTN, Afib on Xarelto, COPD who presented with right sided weakness and aphasia due to new ischemic stroke. 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 -Large nonhemorrhagic stroke acute/subacute infarct in left frontal lobe, laterally at the level of the haider radiata, and centrum semiovale b/l. -CT Scan of head showed that there is no hemorrhagic conversion of stroke -Confirmed with Dr. Mills that MRI is not needed -Continue Atorvastatin Calcium 80 mg -Continue Keppra 500 mg IVPB -Echo showed EF of 55-60% -Carotid U/S showed no acute pathology 2) Dysphagia -PEG was not done due to INR of 5. Will repeat INR and attempt tomorrow. -Will update Daughter, Christiane tomorrow with progress at [phone]. -Has failed swallow eval, still requires suctioning. 3)Leukocytosis -Improving, WBC 14.4 -CT abdomen showed Left Uretral stent, daughter unaware of why it was placed. In process of contacting [facility]- Dr. Marika Molina former PCP, to know why stent is in place -Continue Zosyn 50 mL Q8H 4)History of Paroxysmal Afib -Holding Anticoagulation until head CT and PEG tube is inserted. 5) Anemia -Likely due to chronic anemia. Continue monitoring Hgb. F: NS @ 42 ml/hr, clinimix at 75 ml/hr E: Monitor CMP N: NPO DVT prophylaxis: SCD Visit type - Emergency Visit Emergency Visit: Yes ED Registration Date: 02/27/19 Care time: The patient presented to the Emergency Department on the above date and was hospitalized for further evaluation of their emergent condition. - New Patient This patient is new to me today: No - Critical Care Critical Care patient: No ATTENDING PHYSICIAN STATEMENT I saw and evaluated the patient. I reviewed the resident's note and discussed the case with the resident. I agree with the resident's findings and plan as documented. SUBJECTIVE: OBJECTIVE: ASSESSMENT AND PLAN:
[2019-03-11 17:23] LABS: PROTHROMBIN TIME (PATIENT) 65.1 SEC (9.7-13.0)
[2019-03-11 17:26] LABS: ACTIVATED PTT 48.6 SECONDS (25.2-36.5)
[2019-03-11 17:31] LABS: INR 5.42 (0.83-1.09)
--- NOTE | 2019-03-11 20:16 | PN ---
Teaching Attending Note Name of Resident: Tram Song ATTENDING PHYSICIAN STATEMENT I saw and evaluated the patient. I reviewed the resident's note and discussed the case with the resident. I agree with the resident's findings and plan as documented. SUBJECTIVE: Patient is better, tries to talk and himself understandable. No fever or chills , no shortness of breath. OBJECTIVE: Vital Signs Temperature 98.5 F 03/11/19 17:00 Pulse Rate 89 03/11/19 17:00 Respiratory Rate 22 H 03/11/19 17:00 Blood Pressure 146/54 L 03/11/19 17:00 O2 Sat by Pulse Oximetry (%) 94 L 03/11/19 09:00 GENERAL: The patient is awake, alert, and fully oriented, in no acute distress. HEAD: Normal with no signs of trauma. EYES: PERRL, extraocular movements intact, sclera anicteric, conjunctiva clear. ENT: Ears normal, oropharynx clear without exudates, moist mucous membranes. NECK: Trachea midline, full range of motion, supple. LUNGS: Breath sounds equal, clear to auscultation bilaterally, no wheezes, no crackles, no accessory muscle use. HEART: Regular rate and rhythm, S1, S2 positive, no rub or gallop. ABDOMEN: Soft, NT,ND, no guarding, no rebound, no hepatosplenomegaly, no masses. EXTREMITIES: 2+ pulses, warm, well-perfused, no edema. NEUROLOGICAL: Cranial nerves II through XII grossly intact. gait not observed. PSYCH: happy mood, normal affect. SKIN: Warm, dry, normal turgor, no rashes or lesions noted CBCD WBC 12.6 K/mm3 (4.0-10.0) H 03/11/19 05:45 RBC 2.73 M/mm3 (4.00-5.60) L 03/11/19 05:45 Hgb 8.5 GM/dL (11.7-16.9) L 03/11/19 05:45 Hct 25.2 % (35.4-49) L 03/11/19 05:45 MCV 92.4 fl (80-96) 03/11/19 05:45 MCHC 33.8 g/dl (32.0-35.9) 03/11/19 05:45 RDW 15.3 % (11.9-15.9) 03/11/19 05:45 Plt Count 388 K/MM3 (134-434) 03/11/19 05:45 MPV 9.6 fl (7.5-11.1) 03/11/19 05:45 CMP Sodium 138 mmol/L (136-145) 03/11/19 05:45 Potassium 3.5 mmol/L (3.5-5.1) 03/11/19 05:45 Chloride 104 mmol/L (98-107) 03/11/19 05:45 Carbon Dioxide 25 mmol/L (21-32) 03/11/19 05:45 Anion Gap 9 MMOL/L (8-16) 03/11/19 05:45 BUN 15.2 mg/dL (7-18) 03/11/19 05:45 Creatinine 0.6 mg/dL (0.55-1.3) 03/11/19 05:45 Random Glucose 89 mg/dL (74-106) 03/11/19 05:45 Calcium 8.0 mg/dL (8.5-10.1) L 03/11/19 05:45 Total Bilirubin 0.6 mg/dL (0.2-1) 03/11/19 05:45 AST 44 U/L (15-37) H 03/11/19 05:45 ALT 31 U/L (13-61) 03/11/19 05:45 Alkaline Phosphatase 119 U/L (45-117) H 03/11/19 05:45 Total Protein 6.0 g/dl (6.4-8.2) L 03/11/19 05:45 Albumin 2.1 g/dl (3.4-5.0) L 03/11/19 05:45 CARDIAC ENZYMES Creatine Kinase 27 U/L (26-308) 02/27/19 11:00 Troponin I 0.04 ng/ml (0.00-0.05) 02/28/19 06:15 Current Medications Generic Name Dose Route Start Last Admin Trade Name Freq PRN Reason Stop Dose Admin Atorvastatin Calcium 80 mg 03/03/19 22:00 03/10/19 22:07 Lipitor - NGT Not Given HS AMINA Glycerin 1 each 03/05/19 10:30 Glycerin Suppository Adult - [place] DAILY PRN CONSTIPATION Heparin Sodium (Porcine) 5,000 unit 03/05/19 22:00 03/10/19 21:53 Heparin - SQ 5,000 unit TID AMINA Administration Sodium Chloride 1,000 mls @ 42 mls/hr 03/04/19 16:45 03/10/19 21:53 Normal Saline - IV 42 mls/hr ASDIR AMINA Administration Piperacillin Sod/Tazobactam 50 mls @ 100 mls/hr 03/06/19 14:15 03/11/19 17:59 Sod 3.375 gm/ Dextrose IVPB 100 mls/hr Q8H-IV AMINA Administration Protocol Levetiracetam 500 mg 03/05/19 22:00 03/11/19 10:28 Keppra Injection - IVPB 500 mg BID AMINA Administration Metoprolol Tartrate 5 mg 03/05/19 21:19 03/07/19 10:12 Lopressor Injection - IVPUSH 5 mg Q4H PRN Administration TACHYCARDIA Home Medications Medication Instructions Recorded Acetaminophen [Tylenol] 650 mg PO Q8H 02/28/19 Atorvastatin Ca [Lipitor] 80 mg PO HS 02/28/19 Calcium 250Mg/Vit-D 125 Units 1 combo PO BID 02/28/19 [Oscal 250 mg+D -] Carbamazepine 200 mg PO BID 02/28/19 Ceramides 1,3,6-11 [Cerave] 355 ml TP DAILY 02/28/19 Darbepoetin Odin in Polysorbat 100 mcg IJ MONTHLY 02/28/19 [Aranesp] Ferrous Gluconate [Ferate] 240 mg PO DAILY 02/28/19 Folic Acid 400 mcg PO DAILY 02/28/19 Gabapentin 600 mg PO BID 02/28/19 Lidocaine HCl [Aspercreme] 76.5 gm TP DAILY 02/28/19 Metoprolol Succinate [Toprol Xl] 100 mg PO DAILY 02/28/19 Niacin 500 mg PO HS 02/28/19 Pregabalin [Lyrica] 50 mg PO BID 02/28/19 Rivaroxaban [Xarelto -] 20 mg PO DAILY 02/28/19 Tamsulosin HCl [Flomax] 0.8 mg PO DAILY 02/28/19 Microbiology 03/04/19 14:55 Blood - Peripheral Venous Blood Culture - Final NO GROWTH AFTER 5 DAYS INCUBATION 03/04/19 14:45 Blood - Peripheral Venous Blood Culture - Final NO GROWTH AFTER 5 DAYS INCUBATION 02/27/19 11:20 Urine - Urine - Catheterized Urine Culture - Final Beta Hem Streptococcus Group G CT: large chronic left posterior temporal cortical/subcortical infarct, punctuate left basal ganglia infarcts which are propably chronic moderate periventricular chronic microvascular ischemic changes CT Abdomen and pelvis: left renal atrophy with left renal ureteral double pigtail stent. Distal tip in contracted urinary bladder. ASSESSMENT AND PLAN: Patient is a 78 year old male with PMHx of old CVA, HTN, Afib on Xarelto, COPD, who presented form [place] with aphasia and R sided weakness. he was found to have acute L frontal CVA. # Large acute L frontal stroke # Aphasia, R sided hemiparesis # Dysphagia with risk for aspiration on IV Clinimax # Leukocytosis/UTI : cont zosyn for now # H/o HTN # H/o P A fib #Left Ureteral stent : Unknown when it was placed, daughter is unaware as well. can't place NGT for IR placement of G-tube , multiple attempts by MDs and Rns x 2 nights. GI for PEG placement , INR is still elevated , FFP x 1 unit, will repeat in am pt/inr - cont BB - Cont IVf and clinimix - DNR/DNI - Hold heparin for possible PEG placement. Anticipate dc to rehab after PEG placement.
[2019-03-11] MEDS: HEPARIN NA (PORCINE) 5,000 UNITS/ML 1ML VIAL SQ SCH (21:24)
[2019-03-11] MEDS: ATORVASTATIN CA 80 MG TABLET (FP) NGT SCH (21:25)
[2019-03-12] MEDS ORDERED: PIPERACILLIN/TAZOBACTAM 3.375 GM VIAL IVPB ONE ×3 (03:20→17:56)
[2019-03-12] MEDS ORDERED: DEXTROSE 5%-WATER - 50 ML IVPB ONE ×3 (03:20→17:56)
[2019-03-12] MEDS: PIPERACILLIN/TAZOB 3.375 GM 3.375 GM in DEXTROSE 5%-WATER - 50 ML IVPB SCH ×3 (04:01→18:30)
[2019-03-12] MEDS: HEPARIN NA (PORCINE) 5,000 UNITS/ML 1ML VIAL SQ SCH ×2 (06:22→15:01)
[2019-03-12 07:03] LABS: BASO % 0.6 % (0-2.0); HEMOGLOBIN 8.5 GM/dL (11.7-16.9); LYMPH % 4.8 % (8-40); MCH 31.7 pg (25.7-33.7); MCHC 33.9 g/dl (32.0-35.9); MEAN CELL VOLUME 93.4 fl (80-96); MEAN PLT VOLUME 8.4 fl (7.5-11.1); MONO % 15.3 % (3.8-10.2); NEUT % 78.3 % (42.8-82.8); PLATELET COUNT 368 K/MM3 (134-434); RBC 2.68 M/mm3 (4.00-5.60); RDW 15.3 % (11.9-15.9)
[2019-03-12 08:00] LABS: INR 3.12 (0.83-1.09); PROTHROMBIN TIME (PATIENT) 37.2 SEC (9.7-13.0)
[2019-03-12 08:25] LABS: ALBUMIN 2.3 g/dl (3.4-5.0); BILIRUBIN,TOTAL 0.5 mg/dL (0.2-1); BLOOD UREA NITROGEN 14.9 mg/dL (7-18); CALCIUM 8.4 mg/dL (8.5-10.1); CREATININE 0.6 mg/dL (0.55-1.3); POTASSIUM 3.5 mmol/L (3.5-5.1); TOT PROT 6.1 g/dl (6.4-8.2)
--- NOTE | 2019-03-12 09:03 | PN ---
Progress Note (short form) - Note Progress Note: 78 year old male history of Stroke, htn, Afib, COPD. Patient is [facility] patient and came with right sided sided weakness and difficulty swallowing. Patient is sually talkative as per nursing notes. Paitent is able to walk and talkative. Patient right sided seems to be improved. Paitent bp was 175/53. Patient failed swallowing test, and He is NPO. Patient had repeat ct head and it showed new subacute left frontal lobe stroke There is no deviation was seen, patient is able to follow simple command. He pulled out his ng tube and he is due for PEG tube placement today NEUROLOGICAL EXAMINATION Alert and aphasic , neck is supple afebrile he seems more quiet and able to follow simple command patient is aphasic and not able to express, no conjugate eye deviation was identified eomi, pupils reactive moving all extremity ct head showed large post temporal infarct CTA head unremarkable, carotid ultrasound report appreciated. repeat ct head on march 03 showed large subacute left frontal lobe infarct inr on march 11, 5.42 and on march 12, 3.14 Assessment/Plan78 year old male with history of atrial fibrillation and old stroke came with right hemiparesis and dysphagia and hemiparesis seems to be resolved, patient still have aphasia, ( apparently there is chagne in his status from baseline) . a new subacute left frontal lobe infarct idenfied He failed swallowing test, waiting for pegtube placement, his INR was high Plan: repeat ct head unermarkable - anticoagulation is on hold -supportive care peg tube placement on hold for now Thanking you so much Tonio
[2019-03-12] MEDS: levETIRAcetam 500 MG/5 ML INJECTION VIAL IVPB SCH ×2 (09:33→21:24)
[2019-03-12 10:43] LABS: MACROCYTOSIS 0; PLATELET ESTIMATE NORMAL
--- NOTE | 2019-03-12 12:07 | PN ---
Progress Note, Physician - Current Medication List Current Medications: Active Medications Atorvastatin Calcium (Lipitor -) 80 mg NGT HS AMINA Last Admin: 03/11/19 21:25 Dose: Not Given Glycerin (Glycerin Suppository Adult -) 1 each [place] DAILY PRN PRN Reason: CONSTIPATION Heparin Sodium (Porcine) (Heparin -) 5,000 unit SQ TID AMINA Last Admin: 03/12/19 06:22 Dose: Not Given Sodium Chloride (Normal Saline -) 1,000 mls @ 42 mls/hr IV ASDIR AMINA Last Admin: 03/10/19 21:53 Dose: 42 mls/hr Piperacillin Sod/Tazobactam (Sod 3.375 gm/ Dextrose) 50 mls @ 100 mls/hr IVPB Q8H-IV AMINA; Protocol Last Admin: 03/12/19 09:34 Dose: 100 mls/hr Levetiracetam (Keppra Injection -) 500 mg IVPB BID AMINA Last Admin: 03/12/19 09:33 Dose: 500 mg Metoprolol Tartrate (Lopressor Injection -) 5 mg IVPUSH Q4H PRN PRN Reason: TACHYCARDIA Last Admin: 03/07/19 10:12 Dose: 5 mg - Objective Vital Signs: Vital Signs Temperature 97.8 F 03/12/19 10:00 Pulse Rate 87 03/12/19 10:00 Respiratory Rate 20 03/12/19 10:00 Blood Pressure 142/61 03/12/19 10:00 O2 Sat by Pulse Oximetry (%) 95 03/12/19 09:00 Labs: CBC, BMP 03/12/19 05:40 03/12/19 05:40 INR, PTT INR 3.12 (0.83-1.09) H 03/12/19 05:40
--- NOTE | 2019-03-12 12:15 | PN ---
Progress Note, HEALTH EDUCATION DIRECTOR - Note Progress Note: Excellent participation in speech tx today. Several words elicited including Hello, Thank you, etc. Pt needs visual and auditory cues with a delay in retrierval and repetition. Significant improvement during session. Once elicited , speech is precise and intelligible.Pt was able to sing Row,Row, Row your boat and Merry [employer] in unison! Able to read occasional single words aloud. Much impoved auditory comprehension and starting to cross midline to left side. Smiling/winking/laughing at jokes/following commands. Still with open mouth posture, dry OC, with inability to clear pharyngeal secretions/wet vocal quality. Suctioned frequently. Weak non-functional swallow at this time. Able to close mouth and swallow but with great difficulty and weakness/apraxia. Pending PEG. Pt able to walk today with PT.. Excellent potential for improved functional recovery. I spoke with pt's daughter Christiane. Plan was to return [facility] with transfer to [place] near family. Discussed pt's recovery with her and with PMD. Suggest [facility] once PEG inserted.
--- NOTE | 2019-03-12 12:54 | PN ---
Physical Exam: SUBJECTIVE: Patient seen and examined in the morning. Was alert and awake, did not verbally respond to examiner. Did not communicate that he had any chest pain , abdominal pain, or shortness of breath. OBJECTIVE: Vital Signs Period Temp Pulse Resp BP Sys/Charles Pulse Ox Last 24 Hr 97.8 F-98.5 F 79-89 20-22 138-153/54-91 95-95 GENERAL: The patient is awake, alert. HEAD: Normal with no signs of trauma. EYES: PERRL, extraocular movements intact, sclera anicteric, conjunctiva clear. No ptosis. NECK: Trachea midline, full range of motion, supple. HEART: Regular rate and rhythm, S1, S2 without murmur, rub or gallop. ABDOMEN: Soft, nontender, nondistended, normoactive bowel sounds. EXTREMITIES: 2+ pulses, warm, well-perfused, no edema. Moving upper extremities , full ROM. Patient did not move legs actively. NEUROLOGICAL: Cranial nerves II through grossly intact. Unable to assess speech. SKIN: Warm, dry, normal turgor, no rashes or lesions noted Laboratory Results - last 24 hr 03/11/19 03/12/19 03/12/19 16:40 05:40 05:40 WBC 9.0 RBC 2.68 L Hgb 8.5 L Hct 25.0 L MCV 93.4 MCH 31.7 MCHC 33.9 RDW 15.3 Plt Count 368 MPV 8.4 D Absolute Neuts (auto) 7.1 Neutrophils % 78.3 Neutrophils % (Manual) 65.0 Band Neutrophils % 5.8 Lymphocytes % 4.8 L D Lymphocytes % (Manual) 6.8 L D Monocytes % 15.3 H Monocytes % (Manual) 15 H Eosinophils % 1.0 Eosinophils % (Manual) 1.0 D Basophils % 0.6 Basophils % (Manual) 1.9 D Myelocytes % (Man) 4 H Promyelocytes % (Man) 0 Blast Cells % (Manual) 0 Nucleated RBC % 0 Metamyelocytes 1 Hypochromia 0 Platelet Estimate Normal Polychromasia 0 Poikilocytosis 0 Macrocytosis 0 PT with INR 65.10 H 37.20 H INR 5.42 H* 3.12 H PTT (Actin FS) 48.6 H Sodium Potassium Chloride Carbon Dioxide Anion Gap BUN Creatinine Est GFR (CKD-EPI)AfAm Est GFR (CKD-EPI)NonAf Random Glucose Calcium Total Bilirubin AST ALT Alkaline Phosphatase Total Protein Albumin 03/12/19 05:40 WBC RBC Hgb Hct MCV MCH MCHC RDW Plt Count MPV Absolute Neuts (auto) Neutrophils % Neutrophils % (Manual) Band Neutrophils % Lymphocytes % Lymphocytes % (Manual) Monocytes % Monocytes % (Manual) Eosinophils % Eosinophils % (Manual) Basophils % Basophils % (Manual) Myelocytes % (Man) Promyelocytes % (Man) Blast Cells % (Manual) Nucleated RBC % Metamyelocytes Hypochromia Platelet Estimate Polychromasia Poikilocytosis Macrocytosis PT with INR INR PTT (Actin FS) Sodium 142 Potassium 3.5 Chloride 106 Carbon Dioxide 26 Anion Gap 10 BUN 14.9 Creatinine 0.6 Est GFR (CKD-EPI)AfAm 110.83 Est GFR (CKD-EPI)NonAf 95.63 Random Glucose 91 Calcium 8.4 L Total Bilirubin 0.5 AST 31 ALT 25 Alkaline Phosphatase 114 Total Protein 6.1 L Albumin 2.3 L Active Medications Generic Name Dose Route Start Last Admin Trade Name Freq PRN Reason Stop Dose Admin Atorvastatin Calcium 80 mg 03/03/19 22:00 03/11/19 21:25 Lipitor - NGT Not Given HS AMINA Glycerin 1 each 03/05/19 10:30 Glycerin Suppository Adult - [place] DAILY PRN CONSTIPATION Heparin Sodium (Porcine) 5,000 unit 03/05/19 22:00 03/12/19 06:22 Heparin - SQ Not Given TID AMINA Sodium Chloride 1,000 mls @ 42 mls/hr 03/04/19 16:45 03/10/19 21:53 Normal Saline - IV 42 mls/hr ASDIR AMINA Administration Piperacillin Sod/Tazobactam 50 mls @ 100 mls/hr 03/06/19 14:15 03/12/19 09:34 Sod 3.375 gm/ Dextrose IVPB 100 mls/hr Q8H-IV AMINA Administration Protocol Levetiracetam 500 mg 03/05/19 22:00 03/12/19 09:33 Keppra Injection - IVPB 500 mg BID AMINA Administration Metoprolol Tartrate 5 mg 03/05/19 21:19 03/07/19 10:12 Lopressor Injection - IVPUSH 5 mg Q4H PRN Administration TACHYCARDIA ASSESSMENT/PLAN: 78 M with PMH of prior CVA, HTN, Afib on Xarelto, COPD who presented with right sided weakness and aphasia due to new ischemic stroke. 1) Ischemic Stroke with aphasia and right sided hemiparesis -Patient was improved today. Although unable to move all extremities to full ROM on my physical exam, patient was able to move his extremities with other care providers. -Large nonhemorrhagic stroke acute/subacute infarct in left frontal lobe, laterally at the level of the haider radiata, and centrum semiovale b/l. -CT Scan of head showed that there is no hemorrhagic conversion of stroke -Confirmed with Dr. Mills that MRI is not needed -Continue Atorvastatin Calcium 80 mg -Continue Keppra 500 mg IVPB -Echo showed EF of 55-60% -Carotid U/S showed no acute pathology 2) Dysphagia -PEG was not done due to INR of 3.12, Goal INR of <1.5 for procedure. -update Daughter, Christiane with progress at [phone]. -Has failed swallow eval, still requires suctioning. 3)Leukocytosis -Improving, WBC 14.4 -CT abdomen showed Left Uretral stent, daughter unaware of why it was placed. In process of contacting [facility]- Dr. Marika Molina former PCP, to know why stent is in place -Continue Zosyn 50 mL Q8H 4)History of Paroxysmal Afib -Holding Anticoagulation until head CT and PEG tube is inserted. 5) Anemia -Likely due to chronic anemia. Continue monitoring Hgb. F: NS @ 42 ml/hr E: Monitor CMP N: NPO DVT prophylaxis: SCD Visit type - Emergency Visit Emergency Visit: Yes ED Registration Date: 02/27/19 Care time: The patient presented to the Emergency Department on the above date and was hospitalized for further evaluation of their emergent condition. - New Patient This patient is new to me today: No - Critical Care Critical Care patient: No ATTENDING PHYSICIAN STATEMENT I saw and evaluated the patient. I reviewed the resident's note and discussed the case with the resident. I agree with the resident's findings and plan as documented. SUBJECTIVE: OBJECTIVE: ASSESSMENT AND PLAN:
--- NOTE | 2019-03-12 15:38 | PN ---
Teaching Attending Note Name of Resident: Tram Song ATTENDING PHYSICIAN STATEMENT I saw and evaluated the patient. I reviewed the resident's note and discussed the case with the resident. I agree with the resident's findings and plan as documented. SUBJECTIVE: Patient is feeling better with no acute distress. no fever or chills, tries to communicate OBJECTIVE: Vital Signs Temperature 97.8 F 03/12/19 10:00 Pulse Rate 87 03/12/19 10:00 Respiratory Rate 20 03/12/19 10:00 Blood Pressure 142/61 03/12/19 10:00 O2 Sat by Pulse Oximetry (%) 95 03/12/19 09:00 GENERAL: The patient is awake, alert, and fully oriented, in no acute distress. HEAD: Normal with no signs of trauma. EYES: PERRL, extraocular movements intact, sclera anicteric, conjunctiva clear. ENT: Ears normal, oropharynx clear without exudates, moist mucous membranes. NECK: Trachea midline, full range of motion, supple. LUNGS: Breath sounds equal, clear to auscultation bilaterally, no wheezes, no crackles, no accessory muscle use. HEART: Regular rate and rhythm, S1, S2 positive, PENELOPE 3/6 , no rub or gallop. ABDOMEN: Soft, NT,ND, no guarding, no rebound, no hepatosplenomegaly, no masses. EXTREMITIES: 2+ pulses, warm, well-perfused, no edema. NEUROLOGICAL: Cranial nerves II through XII grossly intact. gait not observed. PSYCH: happy mood, normal affect. SKIN: Warm, dry, normal turgor, no rashes or lesions noted CBCD WBC 9.0 K/mm3 (4.0-10.0) 03/12/19 05:40 RBC 2.68 M/mm3 (4.00-5.60) L 03/12/19 05:40 Hgb 8.5 GM/dL (11.7-16.9) L 03/12/19 05:40 Hct 25.0 % (35.4-49) L 03/12/19 05:40 MCV 93.4 fl (80-96) 03/12/19 05:40 MCHC 33.9 g/dl (32.0-35.9) 03/12/19 05:40 RDW 15.3 % (11.9-15.9) 03/12/19 05:40 Plt Count 368 K/MM3 (134-434) 03/12/19 05:40 MPV 8.4 fl (7.5-11.1) D 03/12/19 05:40 CMP Sodium 142 mmol/L (136-145) 03/12/19 05:40 Potassium 3.5 mmol/L (3.5-5.1) 03/12/19 05:40 Chloride 106 mmol/L (98-107) 03/12/19 05:40 Carbon Dioxide 26 mmol/L (21-32) 03/12/19 05:40 Anion Gap 10 MMOL/L (8-16) 03/12/19 05:40 BUN 14.9 mg/dL (7-18) 03/12/19 05:40 Creatinine 0.6 mg/dL (0.55-1.3) 03/12/19 05:40 Random Glucose 91 mg/dL (74-106) 03/12/19 05:40 Calcium 8.4 mg/dL (8.5-10.1) L 03/12/19 05:40 Total Bilirubin 0.5 mg/dL (0.2-1) 03/12/19 05:40 AST 31 U/L (15-37) 03/12/19 05:40 ALT 25 U/L (13-61) 03/12/19 05:40 Alkaline Phosphatase 114 U/L (45-117) 03/12/19 05:40 Total Protein 6.1 g/dl (6.4-8.2) L 03/12/19 05:40 Albumin 2.3 g/dl (3.4-5.0) L 03/12/19 05:40 CARDIAC ENZYMES Creatine Kinase 27 U/L (26-308) 02/27/19 11:00 Troponin I 0.04 ng/ml (0.00-0.05) 02/28/19 06:15 Home Medications Medication Instructions Recorded Acetaminophen [Tylenol] 650 mg PO Q8H 02/28/19 Atorvastatin Ca [Lipitor] 80 mg PO HS 02/28/19 Calcium 250Mg/Vit-D 125 Units 1 combo PO BID 02/28/19 [Oscal 250 mg+D -] Carbamazepine 200 mg PO BID 02/28/19 Ceramides 1,3,6-11 [Cerave] 355 ml TP DAILY 02/28/19 Darbepoetin Odin in Polysorbat 100 mcg IJ MONTHLY 02/28/19 [Aranesp] Ferrous Gluconate [Ferate] 240 mg PO DAILY 02/28/19 Folic Acid 400 mcg PO DAILY 02/28/19 Gabapentin 600 mg PO BID 02/28/19 Lidocaine HCl [Aspercreme] 76.5 gm TP DAILY 02/28/19 Metoprolol Succinate [Toprol Xl] 100 mg PO DAILY 02/28/19 Niacin 500 mg PO HS 02/28/19 Pregabalin [Lyrica] 50 mg PO BID 02/28/19 Rivaroxaban [Xarelto -] 20 mg PO DAILY 02/28/19 Tamsulosin HCl [Flomax] 0.8 mg PO DAILY 02/28/19 03/04/19 14:55 Blood - Peripheral Venous Blood Culture - Final NO GROWTH AFTER 5 DAYS INCUBATION 03/04/19 14:45 Blood - Peripheral Venous Blood Culture - Final NO GROWTH AFTER 5 DAYS INCUBATION 02/27/19 11:20 Urine - Urine - Catheterized Urine Culture - Final Beta Hem Streptococcus Group G CT: large chronic left posterior temporal cortical/subcortical infarct, punctuate left basal ganglia infarcts which are propably chronic moderate periventricular chronic microvascular ischemic changes CT Abdomen and pelvis: left renal atrophy with left renal ureteral double pigtail stent. Distal tip in contracted urinary bladder. ASSESSMENT AND PLAN: Patient is a 78 year old male with PMHx of old CVA, HTN, Afib on Xarelto, COPD, who presented form [place] with aphasia and R sided weakness. he was found to have acute L frontal CVA. # Large acute L frontal stroke , patient on aspirin rectal # Aphasia, R sided hemiparesis improved # Dysphagia with risk for aspiration on IV Clinimax continue # Leukocytosis/UTI : cont zosyn for now # H/o HTN # H/o P A fib #Left Ureteral stent : Unknown when it was placed, daughter is unaware as well. can't place NGT for IR placement of G-tube , multiple attempts by MDs and Rns x 2 nights. GI for PEG placement , INR is still elevated , FFP x 2 unit, will repeat in am pt/inr - cont BB - Cont IVf and clinimix - DNR/DNI - Hold heparin for possible PEG placement. Anticipate dc to rehab after PEG placement.
[2019-03-12 16:29] LABS: INR 2.36 (0.83-1.09); PROTHROMBIN TIME (PATIENT) 28.1 SEC (9.7-13.0)
--- NOTE | 2019-03-12 16:30 | PN ---
Progress Note (short form) - Note Progress Note: INR >3 in morning and 2.36 in afternoon. Plan for PEG saturday if INR allows. Problem List - Problems (1) Dysphagia Code(s): R13.10 - DYSPHAGIA, UNSPECIFIED Qualifiers: Dysphagia type: unspecified Qualified Code(s): R13.10 - Dysphagia, unspecified
[2019-03-12] MEDS: SODIUM CHLORIDE 1,000 ML IV SCH (21:22)
[2019-03-12] MEDS: ATORVASTATIN CA 80 MG TABLET (FP) NGT SCH (21:26)
[2019-03-12] MEDS: AMINO ACIDS 4.25%/D5W 1,000 ML IV SCH (22:06)
[2019-03-13] MEDS ORDERED: PIPERACILLIN/TAZOBACTAM 3.375 GM VIAL IVPB ONE ×3 (01:02→17:26)
[2019-03-13] MEDS ORDERED: DEXTROSE 5%-WATER - 50 ML IVPB ONE ×3 (01:02→17:26)
[2019-03-13] MEDS: PIPERACILLIN/TAZOB 3.375 GM 3.375 GM in DEXTROSE 5%-WATER - 50 ML IVPB SCH ×3 (01:08→17:34)
[2019-03-13 06:43] LABS: BASO % 1.1 % (0-2.0); EOS % 0.7 % (0-4.5); HEMATOCRIT 21.5 % (35.4-49); HEMOGLOBIN 7.3 GM/dL (11.7-16.9); LYMPH % 3.8 % (8-40); MCH 31.4 pg (25.7-33.7); MCHC 33.9 g/dl (32.0-35.9); MEAN CELL VOLUME 92.6 fl (80-96); MEAN PLT VOLUME 8.7 fl (7.5-11.1); NEUT % 79.4 % (42.8-82.8); PLATELET COUNT 355 K/MM3 (134-434); RBC 2.33 M/mm3 (4.00-5.60); RDW 15.1 % (11.9-15.9); WHITE BLOOD COUNT 10.7 K/mm3 (4.0-10.0)
[2019-03-13 07:32] LABS: ALBUMIN 2.2 g/dl (3.4-5.0); BILIRUBIN,TOTAL 0.5 mg/dL (0.2-1); BLOOD UREA NITROGEN 18.9 mg/dL (7-18); CALCIUM 8.3 mg/dL (8.5-10.1); CREATININE 0.6 mg/dL (0.55-1.3); POTASSIUM 3.2 mmol/L (3.5-5.1); TOT PROT 5.7 g/dl (6.4-8.2)
[2019-03-13 08:40] LABS: INR 2.61 (0.83-1.09); PROTHROMBIN TIME (PATIENT) 31.1 SEC (9.7-13.0)
[2019-03-13] MEDS: levETIRAcetam 500 MG/5 ML INJECTION VIAL IVPB SCH ×2 (09:33→21:01)
[2019-03-13] MEDS ORDERED: ACETAMINOPHEN 1000 MG/100 ML VIAL (NON FORMULARY) IVPB ONE ×2 (10:30→21:13)
[2019-03-13 11:52] LABS: ANISOCYTOSIS 2+; MACROCYTOSIS 0; OVALOCYTE 1+; PLATELET ESTIMATE NORMAL; TEAR DROP CELLS 1+
--- NOTE | 2019-03-13 12:06 | PN ---
Progress Note, BIN PILER - Note Progress Note: Cintinued excellent participation in speech tx today. Several words elicited including Hello, Thank you, etc. Pt needs visual and auditory cues with a delay in retrierval and repetition. Once elicited, speech is precise and intelligible.Pt was able to sing Row,Row, Row your boat! Able to read occasional single words aloud. Much improved auditory comprehension and starting to cross midline to left side. Smiling/winking/laughing at jokes/following commands. Better attention to right although incomplete. Still with open mouth posture, dry OC, with inability to clear pharyngeal secretions/wet vocal quality. Suctioned frequently. Weak non-functional swallow at this time. Able to close mouth and swallow but with great difficulty and weakness/apraxia. Initially, attempted to elicit speech but voice was gurgly, c/w aspiration, and pt was aware. He tried and repeatedly stopped and attempted to clear his throat. Once suctioned, able to produce words upon repetition and sing with intermittent success. Pending PEG, once INR improves-Plan for Saturday. Excellent potential for improved functional recovery. Suggest [facility] Rehab once PEG inserted.
--- NOTE | 2019-03-13 13:15 | PN ---
Physical Exam: SUBJECTIVE: Patient seen and examined in the morning. Was alert and awake, did not verbally respond to examiner. Was able to communicate that he does not have abdominal pain, chest pain, and difficulty breathing. OBJECTIVE: Vital Signs Period Temp Pulse Resp BP Sys/Charles Pulse Ox Last 24 Hr 97.9 F-101.1 F 71-81 20-22 142-151/50-56 95 GENERAL: The patient is awake, alert, and fully oriented, in no acute distress. HEAD: Normal with no signs of trauma. EYES: PERRL, extraocular movements intact, sclera anicteric, conjunctiva clear. No ptosis. NECK: Trachea midline, full range of motion, supple. LUNGS: Breath sounds equal, clear to auscultation bilaterally HEART: Regular rate and rhythm, S1, S2 without murmur, rub or gallop. ABDOMEN: Soft, nontender, nondistended, normoactive bowel sounds, no guarding, no rebound. EXTREMITIES: 2+ pulses, warm, well-perfused, no edema. NEUROLOGICAL: Cranial nerves II through intact. Able to move upper and lower extremities against gravity. Laboratory Results - last 24 hr CBC,CMP CBC, BMP 03/13/19 05:36 03/13/19 05:36 Active Medications Generic Name Dose Route Start Last Admin Trade Name Freq PRN Reason Stop Dose Admin Atorvastatin Calcium 80 mg 03/03/19 22:00 03/12/19 21:26 Lipitor - NGT Not Given HS AMINA Glycerin 1 each 03/05/19 10:30 Glycerin Suppository Adult - NM DAILY PRN CONSTIPATION Piperacillin Sod/Tazobactam 50 mls @ 100 mls/hr 03/06/19 14:15 03/13/19 09:33 Sod 3.375 gm/ Dextrose IVPB 100 mls/hr Q8H-IV AMINA Administration Protocol Amino Acids 1,000 mls @ 75 mls/hr 03/12/19 21:30 03/12/19 22:06 Clinimix - IV 75 mls/hr Q24H AMINA Administration Levetiracetam 500 mg 03/05/19 22:00 03/13/19 09:33 Keppra Injection - IVPB 500 mg BID AMINA Administration Metoprolol Tartrate 5 mg 03/05/19 21:19 03/07/19 10:12 Lopressor Injection - IVPUSH 5 mg Q4H PRN Administration TACHYCARDIA ASSESSMENT/PLAN: ASSESSMENT/PLAN: 78 M with PMH of prior CVA, HTN, Afib on Xarelto, COPD who presented with right sided weakness and aphasia due to new ischemic stroke. 1) Ischemic Stroke with aphasia and right sided hemiparesis -Patient was improved today. Although unable to move all extremities to full ROM on my physical exam, patient was able to move his extremities with other care providers. Is able to say more words as per speech therapist note. -Large nonhemorrhagic stroke acute/subacute infarct in left frontal lobe, laterally at the level of the haider radiata, and centrum semiovale b/l. -CT Scan of head showed that there is no hemorrhagic conversion of stroke -Confirmed with Dr. Mills that MRI is not needed -Continue Atorvastatin Calcium 80 mg -Continue Keppra 500 mg IVPB -Echo showed EF of 55-60% -Carotid U/S showed no acute pathology 2) Dysphagia -PEG was not done due to INR of 2.96, Goal INR of <1.5 for procedure. -update Daughter, Christiane with progress at [phone]. -Has failed swallow eval, still requires suctioning. -Goal of PEG on Saturday. 3)Leukocytosis -Febrile in the morning. Urine and blood culture sent. Awaiting results. -Improving, WBC 10.0 -CT abdomen showed Left Uretral stent, daughter unaware of why it was placed. In process of contacting [facility]- Dr. Marika Molina former PCP, to know why stent is in place -Continue Zosyn 50 mL Q8H 4)History of Paroxysmal Afib -Holding Anticoagulation until head CT and PEG tube is inserted. 5) Anemia -Likely due to chronic anemia. Continue monitoring Hgb. F: Clinimx@ 75 ml/hr E: Monitor CMP N: NPO DVT prophylaxis: SCD Visit type - Emergency Visit Emergency Visit: Yes ED Registration Date: 02/27/19 Care time: The patient presented to the Emergency Department on the above date and was hospitalized for further evaluation of their emergent condition. - New Patient This patient is new to me today: No - Critical Care Critical Care patient: No ATTENDING PHYSICIAN STATEMENT I saw and evaluated the patient. I reviewed the resident's note and discussed the case with the resident. I agree with the resident's findings and plan as documented. SUBJECTIVE: OBJECTIVE: ASSESSMENT AND PLAN:
--- NOTE | 2019-03-13 13:20 | PN ---
Physical Exam: SUBJECTIVE: Patient seen and examined. No fevers, receptive aphasia appears to have improved, pt appeared to understand and repeat certain words. Per speech therapist, pt was able to sing along yesterday and ambulate with PT. Hemiparesis improving. No documented seizure events. Yet to get PEG due to elevated INR. Elevated temperature noted this am, pt received tylenol. OBJECTIVE: Vital Signs Period Temp Pulse Resp BP Sys/Charles Pulse Ox Last 24 Hr 97.9 F-101.1 F 71-81 20-22 142-151/50-56 95 Vital Signs Temp 101.1 F H 03/13/19 10:00 Pulse 81 03/13/19 10:00 Resp 20 03/13/19 10:00 BP 142/56 L 03/13/19 10:00 Pulse Ox 95 03/12/19 20:22 Intake & Output 03/12/19 03/13/19 03/13/19 23:59 11:59 23:59 Intake Total 2138 Balance 2138 Weight 58.604 kg Intake: IV 1740 Clinimix 900 Normal Saline - 1,000 ml 840 @ 42 mls/hr IV ASDIR AMINA Rx#:[id number] IVPB 100 Fresh Frozen Plasma 298 Other: Voiding Method Diaper Incontinent # Unmeasured Voids Void 1 Bowel Movement Yes Yes # Bowel Movements 2 Weight Measurement Method Patient Lift Scale GENERAL: The patient is awake, alert, and fully oriented, in no acute respiratory distress. HEAD: Normal with no signs of trauma. EYES: PERRL, extraocular movements intact, sclera anicteric, conjunctiva clear. ENT: Edentulous, dry mucus membranes, R carotid bruit LUNGS: Breath sounds equal anteriorly, no wheezes, no crackles HEART: irregular, S1, S2 without murmur, rub or gallop. ABDOMEN: Soft, mildly tender suprapubic region, nondistended, normoactive bowel sounds, R bruit EXTREMITIES: 2+ pulses, warm, well-perfused, no edema. NEUROLOGICAL: Pt able to move extremities, no obvious facial droop. SKIN: Warm, dry, normal turgor, no rashes or lesions noted CBC, BMP 03/13/19 05:36 03/13/19 05:36 Laboratory Results - last 24 hr 03/12/19 03/13/19 03/13/19 15:16 05:36 05:36 WBC 10.7 H RBC 2.33 L Hgb 7.3 L Hct 21.5 L MCV 92.6 MCH 31.4 MCHC 33.9 RDW 15.1 Plt Count 355 MPV 8.7 Absolute Neuts (auto) 8.5 H Neutrophils % 79.4 Neutrophils % (Manual) 61.0 Band Neutrophils % 16.0 Lymphocytes % 3.8 L D Lymphocytes % (Manual) 4.0 L D Monocytes % 15.0 H Monocytes % (Manual) 11 H Eosinophils % 0.7 Eosinophils % (Manual) 0.0 D Basophils % 1.1 Basophils % (Manual) 1.0 Myelocytes % (Man) 6 H D Promyelocytes % (Man) 0 Blast Cells % (Manual) 0 Nucleated RBC % 0 Metamyelocytes 0 D Hypochromia 0 Platelet Estimate Normal Platelet Comment Present Polychromasia 0 Poikilocytosis 1+ Anisocytosis 2+ Microcytosis 2+ Macrocytosis 0 Tear Drop Cells 1+ Ovalocytes 1+ Acanthocytes (Spur) 1+ PT with INR 28.10 H INR 2.36 H PTT (Actin FS) 37.9 H Sodium Potassium Chloride Carbon Dioxide Anion Gap BUN Creatinine Est GFR (CKD-EPI)AfAm Est GFR (CKD-EPI)NonAf Random Glucose Calcium Total Bilirubin AST ALT Alkaline Phosphatase Total Protein Albumin 03/13/19 03/13/19 05:36 05:36 WBC RBC Hgb Hct MCV MCH MCHC RDW Plt Count MPV Absolute Neuts (auto) Neutrophils % Neutrophils % (Manual) Band Neutrophils % Lymphocytes % Lymphocytes % (Manual) Monocytes % Monocytes % (Manual) Eosinophils % Eosinophils % (Manual) Basophils % Basophils % (Manual) Myelocytes % (Man) Promyelocytes % (Man) Blast Cells % (Manual) Nucleated RBC % Metamyelocytes Hypochromia Platelet Estimate Platelet Comment Polychromasia Poikilocytosis Anisocytosis Microcytosis Macrocytosis Tear Drop Cells Ovalocytes Acanthocytes (Spur) PT with INR 31.10 H INR 2.61 H PTT (Actin FS) Sodium 143 Potassium 3.2 L Chloride 106 Carbon Dioxide 27 Anion Gap 10 BUN 18.9 H Creatinine 0.6 Est GFR (CKD-EPI)AfAm 110.83 Est GFR (CKD-EPI)NonAf 95.63 Random Glucose 126 H Calcium 8.3 L Total Bilirubin 0.5 AST 25 ALT 18 Alkaline Phosphatase 98 Total Protein 5.7 L Albumin 2.2 L Urine Test Results Urine Color Yellow 02/27/19 11:20 Urine Appearance Clear 02/27/19 11:20 Urine pH 6.5 (5.0-8.0) 02/27/19 11:20 Ur Specific [place] 1.018 (1.010-1.035) 02/27/19 11:20 Urine Protein Trace (NEGATIVE) 02/27/19 11:20 Urine Glucose (UA) Negative (NEGATIVE) 02/27/19 11:20 Urine Ketones Negative (NEGATIVE) 02/27/19 11:20 Urine Blood Negative (NEGATIVE) 02/27/19 11:20 Urine Nitrite Negative (NEGATIVE) 02/27/19 11:20 Urine Bilirubin Negative (NEGATIVE) 02/27/19 11:20 Ur Leukocyte Esterase 3+ (NEGATIVE) H 02/27/19 11:20 Ambulatory Orders Acetaminophen [Tylenol] 650 mg PO Q8H 02/28/19 Atorvastatin Ca [Lipitor] 80 mg PO HS 02/28/19 Calcium 250Mg/Vit-D 125 Units [Oscal 250 mg+D -] 1 combo PO BID 02/28/19 Carbamazepine 200 mg PO BID 02/28/19 Ceramides 1,3,6-11 [Cerave] 355 ml TP DAILY 02/28/19 Darbepoetin Odin in Polysorbat [Aranesp] 100 mcg IJ MONTHLY 02/28/19 Ferrous Gluconate [Ferate] 240 mg PO DAILY 02/28/19 Folic Acid 400 mcg PO DAILY 02/28/19 Gabapentin 600 mg PO BID 02/28/19 Lidocaine HCl [Aspercreme] 76.5 gm TP DAILY 02/28/19 Metoprolol Succinate [Toprol Xl] 100 mg PO DAILY 02/28/19 Niacin 500 mg PO HS 02/28/19 Pregabalin [Lyrica] 50 mg PO BID 02/28/19 Rivaroxaban [Xarelto -] 20 mg PO DAILY 02/28/19 Tamsulosin HCl [Flomax] 0.8 mg PO DAILY 02/28/19 Current Medications Atorvastatin Calcium (Lipitor -) 80 mg NGT HS [facility] Last Admin: 03/12/19 21:26 Dose: Not Given Glycerin (Glycerin Suppository Adult -) 1 each IN DAILY PRN PRN Reason: CONSTIPATION Piperacillin Sod/Tazobactam (Sod 3.375 gm/ Dextrose) 50 mls @ 100 mls/hr IVPB Q8H-IV AMINA; Protocol Last Admin: 03/13/19 09:33 Dose: 100 mls/hr Amino Acids (Clinimix -) 1,000 mls @ 75 mls/hr IV Q24H AMINA Last Admin: 03/12/19 22:06 Dose: 75 mls/hr Levetiracetam (Keppra Injection -) 500 mg IVPB BID AMINA Last Admin: 03/13/19 09:33 Dose: 500 mg Metoprolol Tartrate (Lopressor Injection -) 5 mg IVPUSH Q4H PRN PRN Reason: TACHYCARDIA Last Admin: 03/07/19 10:12 Dose: 5 mg ASSESSMENT/PLAN: Pt is a 78 yo M with PMHx of prior CVA , HTN, Afib, COPD brought in from [facility] with new R sided weakness, dysphasia found to have a new large nonhemorrhagic infarct LMCA prior CVA , HTN, Afib, COPD new R sided weakness, dysphasia new large nonhemorrhagic infarct LMCA UTI Plan: new large nonhemorrhagic infarct LMCA with dysphasia Pt improving with physical therapy, cont D/W Speech therapist, pt will benefit from rehab at [place] Pending PEG placement Currently on clinimix On zosyn AC on hold pending procedure Cont prophylaxis with keppra Rate control on metoprolol Pt would be at increased risk of bleed with combined AC and antiplatelet for stroke prevention D/W Dr Lina Marley MD PGY3 Neurology rotation Visit type - Emergency Visit Emergency Visit: Yes ED Registration Date: 02/27/19 Care time: The patient presented to the Emergency Department on the above date and was hospitalized for further evaluation of their emergent condition. - New Patient This patient is new to me today: Yes Date on this admission: 03/13/19 - Critical Care Critical Care patient: No - Discharge Referral Referred to [facility] Med P.C.: No ATTENDING PHYSICIAN STATEMENT I saw and evaluated the patient. I reviewed the resident's note and discussed the case with the resident. I agree with the resident's findings and plan as documented. SUBJECTIVE: OBJECTIVE: ASSESSMENT AND PLAN:
--- NOTE | 2019-03-13 14:29 | PN ---
Progress Note, Physician History of Present Illness: patient stable spiked fever wbc marginally up - Current Medication List Current Medications: Active Medications Atorvastatin Calcium (Lipitor -) 80 mg NGT HS AMINA Last Admin: 03/12/19 21:26 Dose: Not Given Glycerin (Glycerin Suppository Adult -) 1 each [place] DAILY PRN PRN Reason: CONSTIPATION Piperacillin Sod/Tazobactam (Sod 3.375 gm/ Dextrose) 50 mls @ 100 mls/hr IVPB Q8H-IV AMINA; Protocol Last Admin: 03/13/19 09:33 Dose: 100 mls/hr Amino Acids (Clinimix -) 1,000 mls @ 75 mls/hr IV Q24H AMINA Last Admin: 03/12/19 22:06 Dose: 75 mls/hr Levetiracetam (Keppra Injection -) 500 mg IVPB BID AMINA Last Admin: 03/13/19 09:33 Dose: 500 mg Metoprolol Tartrate (Lopressor Injection -) 5 mg IVPUSH Q4H PRN PRN Reason: TACHYCARDIA Last Admin: 03/07/19 10:12 Dose: 5 mg - Objective Vital Signs: Vital Signs Temperature 101.1 F H 03/13/19 10:00 Pulse Rate 81 03/13/19 10:00 Respiratory Rate 20 03/13/19 10:00 Blood Pressure 142/56 L 03/13/19 10:00 O2 Sat by Pulse Oximetry (%) 95 03/12/19 20:22 Constitutional: Yes: No Distress, Calm Cardiovascular: Yes: S1, S2 Respiratory: Yes: Regular, Poor Air Entry Gastrointestinal: Yes: Normal Bowel Sounds, Soft Musculoskeletal: Yes: WNL Extremities: Yes: Other Neurological: Yes: Alert, Other Psychiatric: Yes: Other Labs: CBC, BMP 03/13/19 05:36 03/13/19 05:36 INR, PTT INR 2.61 (0.83-1.09) H 03/13/19 05:36 Assessment/Plan continue current mgmt continue abx avoid aspiration rest as per the team monitor for fevers
--- NOTE | 2019-03-13 17:13 | PN ---
Progress Note (short form) - Note Progress Note: INR still elevated. If INR permits and given limited GI coverage on Saturday, Plan for PEG, Likely on Saturday 03/17 Problem List - Problems (1) Dysphagia Code(s): R13.10 - DYSPHAGIA, UNSPECIFIED Qualifiers: Dysphagia type: unspecified Qualified Code(s): R13.10 - Dysphagia, unspecified
--- NOTE | 2019-03-13 17:39 | PN ---
Teaching Attending Note Name of Resident: Tram Song ATTENDING PHYSICIAN STATEMENT I saw and evaluated the patient. I reviewed the resident's note and discussed the case with the resident. I agree with the resident's findings and plan as documented. SUBJECTIVE: Patient is comfortable with no acute distress, no nausea or vomiting. OBJECTIVE: Vital Signs Temperature 101.1 F H 03/13/19 10:00 Pulse Rate 20 L 03/13/19 14:25 Respiratory Rate 18 03/13/19 14:25 Blood Pressure 134/52 L 03/13/19 14:25 O2 Sat by Pulse Oximetry (%) 95 03/13/19 09:00 GENERAL: The patient is awake, alert, oriented, in no acute distress. HEAD: Normal with no signs of trauma. EYES: PERRL, extraocular movements intact, sclera anicteric, conjunctiva clear. ENT: Ears normal, oropharynx clear without exudates, very dry mucous membranes , patient has hearing aids. NECK: Trachea midline, full range of motion, supple. LUNGS: Breath sounds equal, clear to auscultation bilaterally, no wheezes, no crackles, no accessory muscle use. HEART: Regular rate and rhythm, S1, S2 positive, PENELOPE 3/6 , no rub or gallop. ABDOMEN: Soft, NT,ND, no guarding, no rebound, no hepatosplenomegaly, no masses. EXTREMITIES: 2+ pulses, warm, well-perfused, no edema. NEUROLOGICAL: Cranial nerves II through XII grossly intact. gait not observed. PSYCH: happy mood, normal affect. SKIN: Warm, dry, normal turgor, no rashes or lesions noted Current Medications Generic Name Dose Route Start Last Admin Trade Name Freq PRN Reason Stop Dose Admin Atorvastatin Calcium 80 mg 03/03/19 22:00 03/12/19 21:26 Lipitor - NGT Not Given HS AMINA Glycerin 1 each 03/05/19 10:30 Glycerin Suppository Adult - [place] DAILY PRN CONSTIPATION Piperacillin Sod/Tazobactam 50 mls @ 100 mls/hr 03/06/19 14:15 03/13/19 17:34 Sod 3.375 gm/ Dextrose IVPB 100 mls/hr Q8H-IV AMINA Administration Protocol Amino Acids 1,000 mls @ 75 mls/hr 03/12/19 21:30 03/12/19 22:06 Clinimix - IV 75 mls/hr Q24H AMINA Administration Levetiracetam 500 mg 03/05/19 22:00 03/13/19 09:33 Keppra Injection - IVPB 500 mg BID AMINA Administration Metoprolol Tartrate 5 mg 03/05/19 21:19 03/07/19 10:12 Lopressor Injection - IVPUSH 5 mg Q4H PRN Administration TACHYCARDIA Home Medications Medication Instructions Recorded Acetaminophen [Tylenol] 650 mg PO Q8H 02/28/19 Atorvastatin Ca [Lipitor] 80 mg PO HS 02/28/19 Calcium 250Mg/Vit-D 125 Units 1 combo PO BID 02/28/19 [Oscal 250 mg+D -] Carbamazepine 200 mg PO BID 02/28/19 Ceramides 1,3,6-11 [Cerave] 355 ml TP DAILY 02/28/19 Darbepoetin Odin in Polysorbat 100 mcg IJ MONTHLY 02/28/19 [Aranesp] Ferrous Gluconate [Ferate] 240 mg PO DAILY 02/28/19 Folic Acid 400 mcg PO DAILY 02/28/19 Gabapentin 600 mg PO BID 02/28/19 Lidocaine HCl [Aspercreme] 76.5 gm TP DAILY 02/28/19 Metoprolol Succinate [Toprol Xl] 100 mg PO DAILY 02/28/19 Niacin 500 mg PO HS 02/28/19 Pregabalin [Lyrica] 50 mg PO BID 02/28/19 Rivaroxaban [Xarelto -] 20 mg PO DAILY 02/28/19 Tamsulosin HCl [Flomax] 0.8 mg PO DAILY 02/28/19 CBCD WBC 10.7 K/mm3 (4.0-10.0) H 03/13/19 05:36 RBC 2.33 M/mm3 (4.00-5.60) L 03/13/19 05:36 Hgb 7.3 GM/dL (11.7-16.9) L 03/13/19 05:36 Hct 21.5 % (35.4-49) L 03/13/19 05:36 MCV 92.6 fl (80-96) 03/13/19 05:36 MCHC 33.9 g/dl (32.0-35.9) 03/13/19 05:36 RDW 15.1 % (11.9-15.9) 03/13/19 05:36 Plt Count 355 K/MM3 (134-434) 03/13/19 05:36 MPV 8.7 fl (7.5-11.1) 03/13/19 05:36 CMP Sodium 143 mmol/L (136-145) 03/13/19 05:36 Potassium 3.2 mmol/L (3.5-5.1) L 03/13/19 05:36 Chloride 106 mmol/L (98-107) 03/13/19 05:36 Carbon Dioxide 27 mmol/L (21-32) 03/13/19 05:36 Anion Gap 10 MMOL/L (8-16) 03/13/19 05:36 BUN 18.9 mg/dL (7-18) H 03/13/19 05:36 Creatinine 0.6 mg/dL (0.55-1.3) 03/13/19 05:36 Random Glucose 126 mg/dL (74-106) H 03/13/19 05:36 Calcium 8.3 mg/dL (8.5-10.1) L 03/13/19 05:36 Total Bilirubin 0.5 mg/dL (0.2-1) 03/13/19 05:36 AST 25 U/L (15-37) 03/13/19 05:36 ALT 18 U/L (13-61) 03/13/19 05:36 Alkaline Phosphatase 98 U/L (45-117) 03/13/19 05:36 Total Protein 5.7 g/dl (6.4-8.2) L 03/13/19 05:36 Albumin 2.2 g/dl (3.4-5.0) L 03/13/19 05:36 CARDIAC ENZYMES Creatine Kinase 27 U/L (26-308) 02/27/19 11:00 Troponin I 0.04 ng/ml (0.00-0.05) 02/28/19 06:15 Laboratory Tests 02/27/19 02/28/19 03/11/19 11:00 06:15 08:44 INR 5.24 H* Troponin I < 0.02 0.04 03/11/19 03/12/19 03/12/19 16:40 05:40 15:16 INR 5.42 H* 3.12 H 2.36 H Troponin I 03/13/19 05:36 INR 2.61 H Troponin I 03/04/19 14:55 Blood - Peripheral Venous Blood Culture - Final NO GROWTH AFTER 5 DAYS INCUBATION 03/04/19 14:45 Blood - Peripheral Venous Blood Culture - Final NO GROWTH AFTER 5 DAYS INCUBATION 02/27/19 11:20 Urine - Urine - Catheterized Urine Culture - Final Beta Hem Streptococcus Group G CT: large chronic left posterior temporal cortical/subcortical infarct, punctuate left basal ganglia infarcts which are propably chronic moderate periventricular chronic microvascular ischemic changes CT Abdomen and pelvis: left renal atrophy with left renal ureteral double pigtail stent. Distal tip in contracted urinary bladder. ASSESSMENT AND PLAN: Patient is a 78 year old male with PMHx of old CVA, HTN, Afib on Xarelto, COPD, who presented form [place] with aphasia and R sided weakness. he was found to have acute L frontal CVA. # Large acute L frontal stroke # Aphasia, R sided hemiparesis improved # Dysphagia with risk for aspiration on IV Clinimax continue, will go for Peg tube on Saturday # Leukocytosis/UTI : cont zosyn for now # H/o HTN # H/o P A fib #Left Ureteral stent : Unknown when it was placed, daughter is unaware as well. can't place NGT for IR placement of G-tube , multiple attempts by MDs and Rns x 2 nights. GI for PEG placement , INR is still elevated , FFP x 1 unit, will repeat in am pt/inr - cont BB - Cont IVf and clinimix - DNR/DNI - Hold heparin for possible PEG placement. Anticipate dc to rehab after PEG tube placement in [place].
[2019-03-13] MEDS: AMINO ACIDS 4.25%/D5W 1,000 ML IV SCH (20:58)
[2019-03-13] MEDS: ATORVASTATIN CA 80 MG TABLET (FP) NGT SCH (21:01)
[2019-03-14] MEDS ORDERED: PIPERACILLIN/TAZOBACTAM 3.375 GM VIAL IVPB ONE ×3 (00:40→17:08)
[2019-03-14] MEDS ORDERED: DEXTROSE 5%-WATER - 50 ML IVPB ONE ×3 (00:40→17:08)
[2019-03-14] MEDS: PIPERACILLIN/TAZOB 3.375 GM 3.375 GM in DEXTROSE 5%-WATER - 50 ML IVPB SCH ×3 (01:04→19:09)
[2019-03-14 07:47] LABS: PROTHROMBIN TIME (PATIENT) 57.4 SEC (9.7-13.0)
[2019-03-14 07:59] LABS: ALBUMIN 2.3 g/dl (3.4-5.0); BILIRUBIN,TOTAL 0.5 mg/dL (0.2-1); BLOOD UREA NITROGEN 22.7 mg/dL (7-18); CALCIUM 8.4 mg/dL (8.5-10.1); CREATININE 0.6 mg/dL (0.55-1.3); POTASSIUM 3.2 mmol/L (3.5-5.1); TOT PROT 5.9 g/dl (6.4-8.2)
[2019-03-14 08:04] LABS: BASO % 0.8 % (0-2.0); EOS % 1.5 % (0-4.5); HEMOGLOBIN 7.7 GM/dL (11.7-16.9); LYMPH % 4.5 % (8-40); MCH 30.9 pg (25.7-33.7); MCHC 33.3 g/dl (32.0-35.9); MEAN CELL VOLUME 92.8 fl (80-96); MEAN PLT VOLUME 8.7 fl (7.5-11.1); NEUT % 82.2 % (42.8-82.8); PLATELET COUNT 398 K/MM3 (134-434); RBC 2.48 M/mm3 (4.00-5.60); RDW 15.4 % (11.9-15.9); WHITE BLOOD COUNT 11.4 K/mm3 (4.0-10.0)
[2019-03-14 08:57] LABS: INR 4.79 (0.83-1.09)
--- NOTE | 2019-03-14 09:46 | PN ---
Progress Note (short form) - Note Progress Note: Patient is lying in bed with no acute distress, daughter and son at bed side. Vital Signs Temperature 97.6 F 03/14/19 06:34 Pulse Rate 70 03/14/19 06:00 Respiratory Rate 18 03/14/19 06:00 Blood Pressure 159/72 03/14/19 06:00 O2 Sat by Pulse Oximetry (%) 95 03/13/19 19:43 GENERAL: The patient is awake, alert, reponse with his eyes since his mouth is so dry. HEAD: Normal with no signs of trauma. EYES: PERRL, extraocular movements intact, sclera anicteric, conjunctiva clear. ENT: Ears normal, oropharynx clear without exudates, moist mucous membranes. NECK: Trachea midline, full range of motion, supple. LUNGS: decreased Breath sounds bl, no wheezes, no crackles, no accessory muscle use. HEART: Regular rate and rhythm, S1, S2 positive, PENELOPE 3/6 , no rub or gallop. ABDOMEN: Soft, NT,ND, no guarding, no rebound, no hepatosplenomegaly, no masses. EXTREMITIES: 2+ pulses, warm, well-perfused, no edema. NEUROLOGICAL: Cranial nerves II through XII grossly intact. gait not observed. PSYCH: happy mood, normal affect. SKIN: Warm, dry, normal turgor, no rashes or lesions noted CBCD WBC 11.4 K/mm3 (4.0-10.0) H 03/14/19 05:40 RBC 2.48 M/mm3 (4.00-5.60) L 03/14/19 05:40 Hgb 7.7 GM/dL (11.7-16.9) L 03/14/19 05:40 Hct 23.0 % (35.4-49) L 03/14/19 05:40 MCV 92.8 fl (80-96) 03/14/19 05:40 MCHC 33.3 g/dl (32.0-35.9) 03/14/19 05:40 RDW 15.4 % (11.9-15.9) 03/14/19 05:40 Plt Count 398 K/MM3 (134-434) 03/14/19 05:40 MPV 8.7 fl (7.5-11.1) 03/14/19 05:40 CMP Sodium 139 mmol/L (136-145) 03/14/19 05:40 Potassium 3.2 mmol/L (3.5-5.1) L 03/14/19 05:40 Chloride 102 mmol/L (98-107) 03/14/19 05:40 Carbon Dioxide 28 mmol/L (21-32) 03/14/19 05:40 Anion Gap 9 MMOL/L (8-16) 03/14/19 05:40 BUN 22.7 mg/dL (7-18) H 03/14/19 05:40 Creatinine 0.6 mg/dL (0.55-1.3) 03/14/19 05:40 Random Glucose 111 mg/dL (74-106) H 03/14/19 05:40 Calcium 8.4 mg/dL (8.5-10.1) L 03/14/19 05:40 Total Bilirubin 0.5 mg/dL (0.2-1) 03/14/19 05:40 AST 22 U/L (15-37) 03/14/19 05:40 ALT 15 U/L (13-61) 03/14/19 05:40 Alkaline Phosphatase 90 U/L (45-117) 03/14/19 05:40 Total Protein 5.9 g/dl (6.4-8.2) L 03/14/19 05:40 Albumin 2.3 g/dl (3.4-5.0) L 03/14/19 05:40 CARDIAC ENZYMES Creatine Kinase 27 U/L (26-308) 02/27/19 11:00 Troponin I 0.04 ng/ml (0.00-0.05) 02/28/19 06:15 Current Medications Generic Name Dose Route Start Last Admin Trade Name Freq PRN Reason Stop Dose Admin Atorvastatin Calcium 80 mg 03/03/19 22:00 03/13/19 21:01 Lipitor - NGT Not Given HS AMINA Glycerin 1 each 03/05/19 10:30 Glycerin Suppository Adult - [place] DAILY PRN CONSTIPATION Piperacillin Sod/Tazobactam 50 mls @ 100 mls/hr 03/06/19 14:15 03/14/19 01:04 Sod 3.375 gm/ Dextrose IVPB 100 mls/hr Q8H-IV AMINA Administration Protocol Amino Acids 1,000 mls @ 75 mls/hr 03/12/19 21:30 03/13/19 20:58 Clinimix - IV 75 mls/hr Q24H AMINA Administration Levetiracetam 500 mg 03/05/19 22:00 03/13/19 21:01 Keppra Injection - IVPB 500 mg BID AMINA Administration Metoprolol Tartrate 5 mg 03/05/19 21:19 03/07/19 10:12 Lopressor Injection - IVPUSH 5 mg Q4H PRN Administration TACHYCARDIA Home Medications Medication Instructions Recorded Acetaminophen [Tylenol] 650 mg PO Q8H 02/28/19 Atorvastatin Ca [Lipitor] 80 mg PO HS 02/28/19 Calcium 250Mg/Vit-D 125 Units 1 combo PO BID 02/28/19 [Oscal 250 mg+D -] Carbamazepine 200 mg PO BID 02/28/19 Ceramides 1,3,6-11 [Cerave] 355 ml TP DAILY 02/28/19 Darbepoetin Odin in Polysorbat 100 mcg IJ MONTHLY 02/28/19 [Aranesp] Ferrous Gluconate [Ferate] 240 mg PO DAILY 02/28/19 Folic Acid 400 mcg PO DAILY 02/28/19 Gabapentin 600 mg PO BID 02/28/19 Lidocaine HCl [Aspercreme] 76.5 gm TP DAILY 02/28/19 Metoprolol Succinate [Toprol Xl] 100 mg PO DAILY 02/28/19 Niacin 500 mg PO HS 02/28/19 Pregabalin [Lyrica] 50 mg PO BID 02/28/19 Rivaroxaban [Xarelto -] 20 mg PO DAILY 02/28/19 Tamsulosin HCl [Flomax] 0.8 mg PO DAILY 02/28/19 Microbiology 03/13/19 13:25 Blood - Peripheral Venous Blood Culture - Preliminary NO GROWTH OBTAINED AFTER 24 HOURS, INCUBATION TO CONTINUE FOR 4 DAYS. 03/13/19 13:25 Blood - Peripheral Venous Blood Culture - Preliminary NO GROWTH OBTAINED AFTER 24 HOURS, INCUBATION TO CONTINUE FOR 4 DAYS. 03/13/19 11:10 Urine - Urine Clean Catch Urine Culture - Final Yeast Like Organism 03/04/19 14:55 Blood - Peripheral Venous Blood Culture - Final NO GROWTH AFTER 5 DAYS INCUBATION 03/04/19 14:45 Blood - Peripheral Venous Blood Culture - Final NO GROWTH AFTER 5 DAYS INCUBATION 02/27/19 11:20 Urine - Urine - Catheterized Urine Culture - Final Beta Hem Streptococcus Group G CT: large chronic left posterior temporal cortical/subcortical infarct, punctuate left basal ganglia infarcts which are propably chronic moderate periventricular chronic microvascular ischemic changes CT Abdomen and pelvis: left renal atrophy with left renal ureteral double pigtail stent. Distal tip in contracted urinary bladder. ASSESSMENT AND PLAN: Patient is a 78 year old male with PMHx of old CVA, HTN, Afib on Xarelto, COPD, [place] and R sided weakness. he was found to have acute L frontal CVA. # Leukocytosis/UTI/yeast/aspiration Pna: trending up most likely due to aspiration Pneumonia: continue IV antibiotic #UA growing yeast: will add IV Diflucan 100mg daily #Elevated INR , will give him a dose sq vitamin k 1.25mg once # Large acute L frontal stroke: # Aphasia, R sided hemiparesis :improving # Dysphagia with risk for aspiration on IV Clinimax continue # H/o HTN cont BB # H/o P A fib #Left Ureteral stent : Unknown when it was placed, daughter is unaware as well. can't place NGT for IR placement of G-tube , multiple attempts by MDs and Rns x 2 nights. GI for PEG placement , INR is still elevated , FFP x 1 unit, will repeat in am pt/inr - DNR/DNI - Hold heparin for now PEG placement on saturday . Anticipate dc to rehab after PEG placement to [place] discussed with daughter in details Visit type - Emergency Visit Emergency Visit: Yes ED Registration Date: 02/27/19 Care time: The patient presented to the Emergency Department on the above date and was hospitalized for further evaluation of their emergent condition. - New Patient This patient is new to me today: No - Critical Care Critical Care patient: No - Discharge Referral Referred to [facility] Med P.C.: No
[2019-03-14] MEDS ORDERED: METOPROLOL TARTRATE 5 MG/5 ML VIAL IVPUSH PRN ×2 (10:22→11:02)
[2019-03-14] MEDS ORDERED: PHYTONADIONE 10 MG/1 ML AMP SQ ONE (10:45)
[2019-03-14] MEDS: levETIRAcetam 500 MG/5 ML INJECTION VIAL IVPB SCH ×2 (11:02→22:37)
[2019-03-14 12:12] LABS: ANISOCYTOSIS 1+; MACROCYTOSIS 0; OVALOCYTE 1+; PLATELET ESTIMATE NORMAL
[2019-03-14] MEDS: KCL 10 MEQ IVPB 10 MEQ/100 ML INFUS.BAG IVPB SCH ×2 (12:42→14:13)
--- NOTE | 2019-03-14 15:55 | PN ---
Progress Note, Physician History of Present Illness: Pt is alert. Fevers yesterday, 99.8F this a.m. He is alert, +cough noted but without acute distress. Slowly ambulating with walker with PT. Daughter at bedside. - Current Medication List Current Medications: Active Medications Atorvastatin Calcium (Lipitor -) 80 mg NGT HS [facility] Last Admin: 03/13/19 21:01 Dose: Not Given Glycerin (Glycerin Suppository Adult -) 1 each [place] DAILY PRN PRN Reason: CONSTIPATION Piperacillin Sod/Tazobactam (Sod 3.375 gm/ Dextrose) 50 mls @ 100 mls/hr IVPB Q8H-IV AMINA; Protocol Last Admin: 03/14/19 11:02 Dose: 100 mls/hr Amino Acids (Clinimix -) 1,000 mls @ 75 mls/hr IV Q24H [facility] Last Admin: 03/13/19 20:58 Dose: 75 mls/hr Levetiracetam (Keppra Injection -) 500 mg IVPB BID [facility] Last Admin: 03/14/19 11:02 Dose: 500 mg Metoprolol Tartrate (Lopressor Injection -) 5 mg IVPUSH Q4H PRN PRN Reason: TACHYCARDIA - Objective Vital Signs: Vital Signs Temperature 97.9 F 03/14/19 14:00 Pulse Rate 82 03/14/19 14:00 Respiratory Rate 16 03/14/19 10:00 Blood Pressure 169/67 03/14/19 14:00 O2 Sat by Pulse Oximetry (%) 95 03/14/19 09:00 Constitutional: Yes: No Distress Cardiovascular: Yes: Regular Rate and Rhythm Respiratory: Yes: Diminished Gastrointestinal: Yes: Normal Bowel Sounds, Soft Genitourinary: Yes: WNL Edema: No Integumentary: Yes: WNL Neurological: Yes: Alert Labs: CBC, BMP 03/14/19 05:40 03/14/19 05:40 INR, PTT INR 4.79 (0.83-1.09) H* 03/14/19 05:40 Microbiology 03/13/19 13:25 Blood - Peripheral Venous Blood Culture - Preliminary NO GROWTH OBTAINED AFTER 24 HOURS, INCUBATION TO CONTINUE FOR 4 DAYS. 03/13/19 13:25 Blood - Peripheral Venous Blood Culture - Preliminary NO GROWTH OBTAINED AFTER 24 HOURS, INCUBATION TO CONTINUE FOR 4 DAYS. 03/13/19 11:10 Urine - Urine Clean Catch Urine Culture - Final Yeast Like Organism 03/04/19 14:55 Blood - Peripheral Venous Blood Culture - Final NO GROWTH AFTER 5 DAYS INCUBATION 03/04/19 14:45 Blood - Peripheral Venous Blood Culture - Final NO GROWTH AFTER 5 DAYS INCUBATION 02/27/19 11:20 Urine - Urine - Catheterized Urine Culture - Final Beta Hem Streptococcus Group G - ....Imaging Chest X-ray: Report Reviewed Problem List - Problems (1) Dysphagia Code(s): R13.10 - DYSPHAGIA, UNSPECIFIED Qualifiers: Dysphagia type: unspecified Qualified Code(s): R13.10 - Dysphagia, unspecified Assessment/Plan Acute CVA Dysphagia Fevers - likely developing aspiration PNA -- CXR results noted, increasing infiltrate -- awaiting GT placement -- continue Zosyn -- continue monitor temps/wbc trend
[2019-03-14] MEDS: FLUCONAZOLE 100 MG/NS 50 ML IVPB SCH (20:08)
[2019-03-14] MEDS: ATORVASTATIN CA 80 MG TABLET (FP) NGT SCH (22:38)
[2019-03-14] MEDS: AMINO ACIDS 4.25%/D5W 1,000 ML IV SCH (22:38)
[2019-03-15] MEDS ORDERED: PIPERACILLIN/TAZOBACTAM 3.375 GM VIAL IVPB ONE ×3 (01:29→17:26)
[2019-03-15] MEDS ORDERED: DEXTROSE 5%-WATER - 50 ML IVPB ONE ×3 (01:29→17:27)
[2019-03-15] MEDS: PIPERACILLIN/TAZOB 3.375 GM 3.375 GM in DEXTROSE 5%-WATER - 50 ML IVPB SCH ×3 (02:12→17:31)
[2019-03-15 06:58] LABS: BASO % 0.8 % (0-2.0); EOS % 1.3 % (0-4.5); HEMATOCRIT 22.9 % (35.4-49); HEMOGLOBIN 7.5 GM/dL (11.7-16.9); MCH 30.9 pg (25.7-33.7); MCHC 32.9 g/dl (32.0-35.9); MEAN CELL VOLUME 93.9 fl (80-96); MEAN PLT VOLUME 9.9 fl (7.5-11.1); MONO % 10.4 % (3.8-10.2); NEUT % 83.5 % (42.8-82.8); PLATELET COUNT 391 K/MM3 (134-434); RBC 2.44 M/mm3 (4.00-5.60); RDW 15.1 % (11.9-15.9); WHITE BLOOD COUNT 11.2 K/mm3 (4.0-10.0)
[2019-03-15 07:10] LABS: INR 1.52 (0.83-1.09)
[2019-03-15 07:27] LABS: ALBUMIN 2.3 g/dl (3.4-5.0); BILIRUBIN,TOTAL 0.6 mg/dL (0.2-1); BLOOD UREA NITROGEN 22.9 mg/dL (7-18); CALCIUM 8.2 mg/dL (8.5-10.1); CREATININE 0.5 mg/dL (0.55-1.3); MAGNESIUM 1.7 mg/dL (1.8-2.4); PHOSPHOROUS 2.5 mg/dL (2.5-4.9); POTASSIUM 3.6 mmol/L (3.5-5.1); TOT PROT 5.8 g/dl (6.4-8.2)
[2019-03-15] MEDS: FLUCONAZOLE 100 MG/NS 50 ML IVPB SCH (09:55)
[2019-03-15] MEDS: levETIRAcetam 500 MG/5 ML INJECTION VIAL IVPB SCH ×2 (09:56→21:34)
[2019-03-15 10:57] LABS: ANISOCYTOSIS 1+; MACROCYTOSIS 0; OVALOCYTE 1+; PLATELET ESTIMATE NORMAL
--- NOTE | 2019-03-15 12:47 | PN ---
Progress Note, Physician History of Present Illness: Pt is alert and responsive. No distress noted. Fevers appear to have resolved. - Current Medication List Current Medications: Active Medications Atorvastatin Calcium (Lipitor -) 80 mg NGT HS [facility] Last Admin: 03/14/19 22:38 Dose: Not Given Glycerin (Glycerin Suppository Adult -) 1 each [place] DAILY PRN PRN Reason: CONSTIPATION Piperacillin Sod/Tazobactam (Sod 3.375 gm/ Dextrose) 50 mls @ 100 mls/hr IVPB Q8H-IV AMINA; Protocol Last Admin: 03/15/19 09:56 Dose: 100 mls/hr Amino Acids (Clinimix -) 1,000 mls @ 75 mls/hr IV Q24H [facility] Last Admin: 03/14/19 22:38 Dose: 75 mls/hr Fluconazole (Diflucan 100 Mg/Ns Premixed Ivpb -) 50 mls @ 50 mls/hr IVPB DAILY [facility] Last Admin: 03/15/19 09:55 Dose: 50 mls/hr Levetiracetam (Keppra Injection -) 500 mg IVPB BID [facility] Last Admin: 03/15/19 09:56 Dose: 500 mg Metoprolol Tartrate (Lopressor Injection -) 5 mg IVPUSH Q4H PRN PRN Reason: TACHYCARDIA - Objective Vital Signs: Vital Signs Temperature 97.9 F 03/15/19 10:00 Pulse Rate 78 03/15/19 10:00 Respiratory Rate 18 03/15/19 10:00 Blood Pressure 149/57 L 03/15/19 10:00 O2 Sat by Pulse Oximetry (%) 98 03/15/19 09:00 Constitutional: Yes: No Distress, Calm Cardiovascular: Yes: Regular Rate and Rhythm Respiratory: Yes: Regular Gastrointestinal: Yes: Normal Bowel Sounds, Soft Neurological: Yes: Alert Labs: CBC, BMP 03/15/19 05:40 03/15/19 05:40 INR, PTT INR 1.52 (0.83-1.09) H 03/15/19 05:40 Microbiology 03/13/19 13:25 Blood - Peripheral Venous Blood Culture - Preliminary NO GROWTH OBTAINED AFTER 24 HOURS, INCUBATION TO CONTINUE FOR 4 DAYS. 03/13/19 13:25 Blood - Peripheral Venous Blood Culture - Preliminary NO GROWTH OBTAINED AFTER 24 HOURS, INCUBATION TO CONTINUE FOR 4 DAYS. 03/13/19 11:10 Urine - Urine Clean Catch Urine Culture - Final Yeast Like Organism 03/04/19 14:55 Blood - Peripheral Venous Blood Culture - Final NO GROWTH AFTER 5 DAYS INCUBATION 03/04/19 14:45 Blood - Peripheral Venous Blood Culture - Final NO GROWTH AFTER 5 DAYS INCUBATION 02/27/19 11:20 Urine - Urine - Catheterized Urine Culture - Final Beta Hem Streptococcus Group G Problem List - Problems (1) Dysphagia Code(s): R13.10 - DYSPHAGIA, UNSPECIFIED Qualifiers: Dysphagia type: unspecified Qualified Code(s): R13.10 - Dysphagia, unspecified Assessment/Plan Acute CVA Dysphagia Fevers - likely developing aspiration PNA Funguria -- now afebrile -- CXR with increasing infiltrate -- awaiting GT placement -- continue Zosyn, Fluconazole added yesterday -- continue monitor temps/wbc trend
--- NOTE | 2019-03-15 18:23 | PN ---
Physical Exam: SUBJECTIVE: Patient seen and examined in the morning. No acute events overnight. Denies chest pain, shortness of breath, abdominal pain, fever and chills. OBJECTIVE: Vital Signs Period Temp Pulse Resp BP Sys/Charles Pulse Ox Last 24 Hr 97.5 F-98.6 F 75-80 18-20 139-158/55-69 98-98 GENERAL: The patient is awake, alert, and resting comfortably. HEAD: Normal with no signs of trauma. EYES: PERRL, extraocular movements intact, sclera anicteric, conjunctiva clear. HEART: Regular rate and rhythm, S1, S2 without murmur, rub or gallop. ABDOMEN: Soft, tender to soft palpation, normoactive bowel sounds. EXTREMITIES: 2+ pulses, warm, well-perfused, no edema. NEUROLOGICAL: Cranial nerves II- intact. Able to move all 4 extremities against gravity. SKIN: Warm, dry, normal turgor, no rashes or lesions noted Laboratory Results - last 24 hr 03/15/19 03/15/19 03/15/19 05:40 05:40 05:40 WBC 11.2 H RBC 2.44 L Hgb 7.5 L Hct 22.9 L MCV 93.9 MCH 30.9 MCHC 32.9 RDW 15.1 Plt Count 391 MPV 9.9 D Absolute Neuts (auto) 9.3 H Neutrophils % 83.5 H Neutrophils % (Manual) 54.7 D Band Neutrophils % 16.0 Lymphocytes % 4.0 L Lymphocytes % (Manual) 9.4 D Monocytes % 10.4 H Monocytes % (Manual) 7 Eosinophils % 1.3 Eosinophils % (Manual) 0.0 D Basophils % 0.8 Basophils % (Manual) 1.0 D Myelocytes % (Man) 5 H D Promyelocytes % (Man) 1 D Blast Cells % (Manual) 0 Nucleated RBC % 0 Metamyelocytes 6 H D Hypochromia 0 Platelet Estimate Normal Platelet Comment Present Polychromasia 1+ Poikilocytosis 1+ Anisocytosis 1+ Microcytosis 1+ Macrocytosis 0 Spherocytes 1+ Ovalocytes 1+ Acanthocytes (Spur) 1+ PT with INR 18.00 H INR 1.52 H Sodium 134 L Potassium 3.6 Chloride 100 Carbon Dioxide 26 Anion Gap 7 L BUN 22.9 H Creatinine 0.5 L Est GFR (CKD-EPI)AfAm 119.46 Est GFR (CKD-EPI)NonAf 103.07 Random Glucose 107 H Calcium 8.2 L Phosphorus 2.5 Magnesium 1.7 L Total Bilirubin 0.6 AST 26 ALT 14 Alkaline Phosphatase 86 Total Protein 5.8 L Albumin 2.3 L Active Medications Generic Name Dose Route Start Last Admin Trade Name Freq PRN Reason Stop Dose Admin Atorvastatin Calcium 80 mg 03/03/19 22:00 03/14/19 22:38 Lipitor - NGT Not Given HS AMINA Glycerin 1 each 03/05/19 10:30 Glycerin Suppository Adult - [place] DAILY PRN CONSTIPATION Piperacillin Sod/Tazobactam 50 mls @ 100 mls/hr 03/06/19 14:15 03/15/19 17:31 Sod 3.375 gm/ Dextrose IVPB 100 mls/hr Q8H-IV AMINA Administration Protocol Amino Acids 1,000 mls @ 75 mls/hr 03/12/19 21:30 03/14/19 22:38 Clinimix - IV 75 mls/hr Q24H AMINA Administration Fluconazole 50 mls @ 50 mls/hr 03/14/19 17:30 03/15/19 09:55 Diflucan 100 Mg/Ns Premixed Ivpb - IVPB 50 mls/hr DAILY AMINA Administration Levetiracetam 500 mg 03/05/19 22:00 03/15/19 09:56 Keppra Injection - IVPB 500 mg BID AMINA Administration Metoprolol Tartrate 5 mg 03/14/19 11:02 Lopressor Injection - IVPUSH Q4H PRN TACHYCARDIA ASSESSMENT/PLAN: 78 M with PMH of prior CVA, HTN, Afib on Xarelto, COPD who presented with right sided weakness and aphasia due to new ischemic stroke. 1) Ischemic Stroke with aphasia and right sided hemiparesis -Patient was improved today. Patient has active ROM of 4 extremities, full ROM. -Large nonhemorrhagic stroke acute/subacute infarct in left frontal lobe, laterally at the level of the haider radiata, and centrum semiovale b/l. -CT Scan of head showed that there is no hemorrhagic conversion of stroke -Confirmed with Dr. Mills that MRI is not needed -Continue Atorvastatin Calcium 80 mg -Continue Keppra 500 mg IVPB -Echo showed EF of 55-60% -Carotid U/S showed no acute pathology 2) Dysphagia -PEG was not done due to INR of 2.96, Goal INR of <1.5 for procedure. -update Daughter, Christiane with progress at [phone]. -Has failed swallow eval, still requires suctioning. -Goal of PEG on Saturday. INR today 1.52. Repeat INR tomorrow. Subcutanous vitamin K given on 03/14/19. 3)Leukocytosis -Afebrile. Urine and blood culture sent. Urine culture has yeast like organism. Blood cultures pending. WBC is still increased. -CT abdomen showed Left Uretral stent, daughter unaware of why it was placed. In process of contacting [facility]- Dr. Marika Molina former PCP, to know why stent is in place -Continue Zosyn 50 mL Q8H -Continue fluconazole 100 mg IV Qdaily. 4)History of Paroxysmal Afib -Holding Anticoagulation until head CT and PEG tube is inserted. 5) Anemia -Likely due to chronic anemia. Continue monitoring Hgb. F: Clinimx@ 75 ml/hr E: Monitor CMP N: NPO DVT prophylaxis: SCD Visit type - Emergency Visit Emergency Visit: Yes ED Registration Date: 02/27/19 Care time: The patient presented to the Emergency Department on the above date and was hospitalized for further evaluation of their emergent condition. - New Patient This patient is new to me today: No - Critical Care Critical Care patient: No ATTENDING PHYSICIAN STATEMENT I saw and evaluated the patient. I reviewed the resident's note and discussed the case with the resident. I agree with the resident's findings and plan as documented. SUBJECTIVE: OBJECTIVE: ASSESSMENT AND PLAN:
--- NOTE | 2019-03-15 18:51 | PN ---
Teaching Attending Note Name of Resident: Tram Song ATTENDING PHYSICIAN STATEMENT I saw and evaluated the patient. I reviewed the resident's note and discussed the case with the resident. I agree with the resident's findings and plan as documented. Patient is lying in bed with no acute distress, patient is more alert and awake today . Vital Signs Temperature 97.5 F L 03/15/19 17:00 Pulse Rate 77 03/15/19 17:00 Respiratory Rate 20 03/15/19 17:00 Blood Pressure 163/66 03/15/19 17:00 O2 Sat by Pulse Oximetry (%) 98 03/15/19 09:00 GENERAL: The patient is awake, alert, more so today HEAD: Normal with no signs of trauma. EYES: PERRL, extraocular movements intact, sclera anicteric, conjunctiva clear. ENT: Ears normal, oropharynx clear without exudates, moist mucous membranes. NECK: Trachea midline, full range of motion, supple. LUNGS: decreased Breath sounds bl, no wheezes, no crackles, no accessory muscle use. HEART: Regular rate and rhythm, S1, S2 positive, PENELOPE 3/6 , no rub or gallop. ABDOMEN: Soft, NT,ND, no guarding, no rebound, no hepatosplenomegaly, no masses. EXTREMITIES: 2+ pulses, warm, well-perfused, no edema. NEUROLOGICAL: Cranial nerves II through XII grossly intact. gait not observed. PSYCH: happy mood, normal affect. SKIN: Warm, dry, normal turgor, no rashes or lesions noted CBCD WBC 11.2 K/mm3 (4.0-10.0) H 03/15/19 05:40 RBC 2.44 M/mm3 (4.00-5.60) L 03/15/19 05:40 Hgb 7.5 GM/dL (11.7-16.9) L 03/15/19 05:40 Hct 22.9 % (35.4-49) L 03/15/19 05:40 MCV 93.9 fl (80-96) 03/15/19 05:40 MCHC 32.9 g/dl (32.0-35.9) 03/15/19 05:40 RDW 15.1 % (11.9-15.9) 03/15/19 05:40 Plt Count 391 K/MM3 (134-434) 03/15/19 05:40 MPV 9.9 fl (7.5-11.1) D 03/15/19 05:40 CMP Sodium 134 mmol/L (136-145) L 03/15/19 05:40 Potassium 3.6 mmol/L (3.5-5.1) 03/15/19 05:40 Chloride 100 mmol/L (98-107) 03/15/19 05:40 Carbon Dioxide 26 mmol/L (21-32) 03/15/19 05:40 Anion Gap 7 MMOL/L (8-16) L 03/15/19 05:40 BUN 22.9 mg/dL (7-18) H 03/15/19 05:40 Creatinine 0.5 mg/dL (0.55-1.3) L 03/15/19 05:40 Random Glucose 107 mg/dL (74-106) H 03/15/19 05:40 Calcium 8.2 mg/dL (8.5-10.1) L 03/15/19 05:40 Total Bilirubin 0.6 mg/dL (0.2-1) 03/15/19 05:40 AST 26 U/L (15-37) 03/15/19 05:40 ALT 14 U/L (13-61) 03/15/19 05:40 Alkaline Phosphatase 86 U/L (45-117) 03/15/19 05:40 Total Protein 5.8 g/dl (6.4-8.2) L 03/15/19 05:40 Albumin 2.3 g/dl (3.4-5.0) L 03/15/19 05:40 CARDIAC ENZYMES Creatine Kinase 27 U/L (26-308) 02/27/19 11:00 Troponin I 0.04 ng/ml (0.00-0.05) 02/28/19 06:15 Current Medications Generic Name Dose Route Start Last Admin Trade Name Freq PRN Reason Stop Dose Admin Atorvastatin Calcium 80 mg 03/03/19 22:00 03/14/19 22:38 Lipitor - NGT Not Given HS AMINA Glycerin 1 each 03/05/19 10:30 Glycerin Suppository Adult - [place] DAILY PRN CONSTIPATION Piperacillin Sod/Tazobactam 50 mls @ 100 mls/hr 03/06/19 14:15 03/15/19 17:31 Sod 3.375 gm/ Dextrose IVPB 100 mls/hr Q8H-IV AMINA Administration Protocol Amino Acids 1,000 mls @ 75 mls/hr 03/12/19 21:30 03/14/19 22:38 Clinimix - IV 75 mls/hr Q24H AMINA Administration Fluconazole 50 mls @ 50 mls/hr 03/14/19 17:30 03/15/19 09:55 Diflucan 100 Mg/Ns Premixed Ivpb - IVPB 50 mls/hr DAILY AMINA Administration Levetiracetam 500 mg 03/05/19 22:00 03/15/19 09:56 Keppra Injection - IVPB 500 mg BID AMINA Administration Metoprolol Tartrate 5 mg 03/14/19 11:02 Lopressor Injection - IVPUSH Q4H PRN TACHYCARDIA Home Medications Medication Instructions Recorded Acetaminophen [Tylenol] 650 mg PO Q8H 02/28/19 Atorvastatin Ca [Lipitor] 80 mg PO HS 02/28/19 Calcium 250Mg/Vit-D 125 Units 1 combo PO BID 02/28/19 [Oscal 250 mg+D -] Carbamazepine 200 mg PO BID 02/28/19 Ceramides 1,3,6-11 [Cerave] 355 ml TP DAILY 02/28/19 Darbepoetin Odin in Polysorbat 100 mcg IJ MONTHLY 02/28/19 [Aranesp] Ferrous Gluconate [Ferate] 240 mg PO DAILY 02/28/19 Folic Acid 400 mcg PO DAILY 02/28/19 Gabapentin 600 mg PO BID 02/28/19 Lidocaine HCl [Aspercreme] 76.5 gm TP DAILY 02/28/19 Metoprolol Succinate [Toprol Xl] 100 mg PO DAILY 02/28/19 Niacin 500 mg PO HS 02/28/19 Pregabalin [Lyrica] 50 mg PO BID 02/28/19 Rivaroxaban [Xarelto -] 20 mg PO DAILY 02/28/19 Tamsulosin HCl [Flomax] 0.8 mg PO DAILY 02/28/19 Microbiology 03/13/19 13:25 Blood - Peripheral Venous Blood Culture - Preliminary NO GROWTH OBTAINED AFTER 24 HOURS, INCUBATION TO CONTINUE FOR 4 DAYS. 03/13/19 13:25 Blood - Peripheral Venous Blood Culture - Preliminary NO GROWTH OBTAINED AFTER 24 HOURS, INCUBATION TO CONTINUE FOR 4 DAYS. 03/13/19 11:10 Urine - Urine Clean Catch Urine Culture - Final Yeast Like Organism 03/04/19 14:55 Blood - Peripheral Venous Blood Culture - Final NO GROWTH AFTER 5 DAYS INCUBATION 03/04/19 14:45 Blood - Peripheral Venous Blood Culture - Final NO GROWTH AFTER 5 DAYS INCUBATION 02/27/19 11:20 Urine - Urine - Catheterized Urine Culture - Final Beta Hem Streptococcus Group G CT: large chronic left posterior temporal cortical/subcortical infarct, punctuate left basal ganglia infarcts which are propably chronic moderate periventricular chronic microvascular ischemic changes CT Abdomen and pelvis: left renal atrophy with left renal ureteral double pigtail stent. Distal tip in contracted urinary bladder. ASSESSMENT AND PLAN: Patient is a 78 year old male with PMHx of old CVA, HTN, Afib on Xarelto, COPD, who presented form [place] with aphasia and R sided weakness. he was found to have acute L frontal CVA. # Elevated Blood presure: added Vasotec 1.25mg to give above 140 SBP, continue BB # Leukocytosis/UTI/yeast/aspiration Pna: trending up most likely due to aspiration Pneumonia: continue IV antibiotic #Funguria: continue IV Diflucan 100mg daily #Elevated INR , INR is 1.25 today s/p sq vitamin k 1.25mg once # Large acute L frontal stroke: # Aphasia, R sided hemiparesis :improving # Dysphagia with risk for aspiration on IV Clinimax continue # H/o P A fib continue BB #Left Ureteral stent : Unknown when it was placed, daughter is unaware as well. can't place NGT for IR placement of G-tube , multiple attempts by MDs and Rns x 2 nights. GI for PEG placement , INR is still elevated , FFP x 1 unit, will repeat in am pt/inr - DNR/DNI - Hold heparin for now PEG placement on saturday . Anticipate dc to rehab after PEG placement to [facility] discussed with daughter in details
[2019-03-15] MEDS ORDERED: ENALAPRILAT DIHYDRATE 1.25 MG/1 ML VIAL IVPB PRN (19:00)
[2019-03-15] MEDS: AMINO ACIDS 4.25%/D5W 1,000 ML IV SCH (21:33)
[2019-03-15] MEDS: ATORVASTATIN CA 80 MG TABLET (FP) NGT SCH ×2 (21:34→21:36)
[2019-03-16] MEDS ORDERED: PIPERACILLIN/TAZOBACTAM 3.375 GM VIAL IVPB ONE ×3 (02:03→18:06)
[2019-03-16] MEDS ORDERED: DEXTROSE 5%-WATER - 50 ML IVPB ONE ×3 (02:04→18:06)
[2019-03-16] MEDS: PIPERACILLIN/TAZOB 3.375 GM 3.375 GM in DEXTROSE 5%-WATER - 50 ML IVPB SCH ×3 (03:07→18:53)
[2019-03-16 07:14] LABS: BASO % 1.1 % (0-2.0); EOS % 1.5 % (0-4.5); HEMATOCRIT 23.1 % (35.4-49); HEMOGLOBIN 7.9 GM/dL (11.7-16.9); MCH 31.3 pg (25.7-33.7); MEAN CELL VOLUME 91.9 fl (80-96); MEAN PLT VOLUME 9.4 fl (7.5-11.1); MONO % 10.6 % (3.8-10.2); NEUT % 81.8 % (42.8-82.8); PLATELET COUNT 421 K/MM3 (134-434); RBC 2.52 M/mm3 (4.00-5.60); RDW 15.2 % (11.9-15.9); WHITE BLOOD COUNT 9.5 K/mm3 (4.0-10.0)
[2019-03-16 07:25] LABS: INR 1.26 (0.83-1.09); PROTHROMBIN TIME (PATIENT) 14.9 SEC (9.7-13.0)
[2019-03-16 07:44] LABS: ALBUMIN 2.4 g/dl (3.4-5.0); BILIRUBIN,TOTAL 0.8 mg/dL (0.2-1); BLOOD UREA NITROGEN 27.5 mg/dL (7-18); CALCIUM 8.2 mg/dL (8.5-10.1); CREATININE 0.6 mg/dL (0.55-1.3); POTASSIUM 3.6 mmol/L (3.5-5.1); TOT PROT 6.2 g/dl (6.4-8.2)
[2019-03-16] MEDS ORDERED: PT OWN MED DRAWER 7, Y5N ONE (08:10)
[2019-03-16] MEDS: levETIRAcetam 500 MG/5 ML INJECTION VIAL IVPB SCH ×2 (10:08→21:15)
[2019-03-16 11:19] LABS: ANISOCYTOSIS 1+; MACROCYTOSIS 0; PLATELET ESTIMATE NORMAL
[2019-03-16] MEDS: FLUCONAZOLE 100 MG/NS 50 ML IVPB SCH (11:47)
--- NOTE | 2019-03-16 13:15 | PN ---
Progress Note, Physician History of Present Illness: stable no new issues - Current Medication List Current Medications: Active Medications Atorvastatin Calcium (Lipitor -) 80 mg NGT HS [facility] Last Admin: 03/15/19 21:36 Dose: Not Given Enalaprilat (Vasotec Injection -) 1.25 mg IVPB Q6H PRN PRN Reason: HYPERTENSION Glycerin (Glycerin Suppository Adult -) 1 each [place] DAILY PRN PRN Reason: CONSTIPATION Piperacillin Sod/Tazobactam (Sod 3.375 gm/ Dextrose) 50 mls @ 100 mls/hr IVPB Q8H-IV AMINA; Protocol Last Admin: 03/16/19 09:21 Dose: 100 mls/hr Amino Acids (Clinimix -) 1,000 mls @ 75 mls/hr IV Q24H AMINA Last Admin: 03/15/19 21:33 Dose: 75 mls/hr Fluconazole (Diflucan 100 Mg/Ns Premixed Ivpb -) 50 mls @ 50 mls/hr IVPB DAILY AMINA Last Admin: 03/16/19 11:47 Dose: 50 mls/hr Potassium Chloride (Potassium Chloride 10 Meq Premix Ivpb -) 10 meq in 100 mls @ 100 mls/hr IVPB Q60M AMINA Stop: 03/16/19 16:29 Levetiracetam (Keppra Injection -) 500 mg IVPB BID AMINA Last Admin: 03/16/19 10:08 Dose: 500 mg Metoprolol Tartrate (Lopressor Injection -) 5 mg IVPUSH Q4H PRN PRN Reason: TACHYCARDIA - Objective Vital Signs: Vital Signs Temperature 98.9 F 03/16/19 09:00 Pulse Rate 90 03/16/19 09:00 Respiratory Rate 20 03/16/19 09:00 Blood Pressure 145/68 03/16/19 09:00 O2 Sat by Pulse Oximetry (%) 97 03/16/19 09:00 Constitutional: Yes: No Distress, Calm Cardiovascular: Yes: S1, S2 Respiratory: Yes: Regular, CTA Bilaterally Gastrointestinal: Yes: Normal Bowel Sounds, Soft Musculoskeletal: Yes: WNL Extremities: Yes: Other Neurological: Yes: Alert Labs: CBC, BMP 03/16/19 05:35 03/16/19 05:35 INR, PTT INR 1.26 (0.83-1.09) H 03/16/19 05:35 Assessment/Plan Problem List - Problems (1) Dysphagia Code(s): R13.10 - DYSPHAGIA, UNSPECIFIED Qualifiers: Dysphagia type: unspecified Qualified Code(s): R13.10 - Dysphagia, unspecified Assessment/Plan Acute CVA Dysphagia Fevers - likely developing aspiration PNA Funguria continue current abx awaiting for peg tube asp precautions rest as per the team
--- NOTE | 2019-03-16 13:29 | PN ---
Progress Note, MANAGER INSTALLATION - Note Progress Note: Selected Entries 03/16/19 03/16/19 03/16/19 00:00 05:58 09:00 Breakfast Temperature 97.6 F 97.9 F 98.9 F 03/16/19 03/16/19 09:45 10:00 Breakfast NPO NPO Temperature Laboratory Tests 03/14/19 03/15/19 03/16/19 05:40 05:40 05:35 WBC 11.4 H 11.2 H 9.5 Requires less suctioning, less congestion. Communication performance unchanged. Limited verbal expression for me today. Nursing reports he was better this am, however, tired following ambulation with PT. Pending PEG insertion, scheduled for tomorrow.
[2019-03-16] MEDS: KCL 10 MEQ IVPB 10 MEQ/100 ML INFUS.BAG IVPB SCH ×3 (14:08→17:56)
--- NOTE | 2019-03-16 15:34 | PN ---
Physical Exam: SUBJECTIVE: Patient seen and examined in the morning. Patient had no acute events overnight. Has no complaints of chest pain, shortness of breath, abdominal pain. OBJECTIVE: Vital Signs Period Temp Pulse Resp BP Sys/Charles Pulse Ox Last 24 Hr 97.5 F-98.9 F 77-90 20-20 134-163/56-68 96-97 GENERAL: The patient is awake, alert. HEAD: Normal with no signs of trauma. EYES: PERRL, extraocular movements intact, sclera anicteric, conjunctiva clear. ENT: Ears normal, nares patent, oropharynx clear without exudates. NECK: Trachea midline, full range of motion, supple. LUNGS: Breath sounds clear on anterior exam. HEART: Regular rate and rhythm, S1, S2 without murmur, rub or gallop. ABDOMEN: Soft, nontender, nondistended, normoactive bowel sounds EXTREMITIES: 2+ pulses, warm, well-perfused, no edema. NEUROLOGICAL: Cranial nerves II through grossly intact. Able to move all 4 extremities against gravity. SKIN: Warm, dry, no rashes or lesions noted Laboratory Results - last 24 hr 03/16/19 03/16/19 03/16/19 05:35 05:35 05:35 WBC 9.5 RBC 2.52 L Hgb 7.9 L Hct 23.1 L MCV 91.9 MCH 31.3 MCHC 34.0 RDW 15.2 Plt Count 421 MPV 9.4 Absolute Neuts (auto) 7.7 Neutrophils % 81.8 Neutrophils % (Manual) 74.0 D Band Neutrophils % 3.0 Lymphocytes % 5.0 L D Lymphocytes % (Manual) 5.0 L D Monocytes % 10.6 H Monocytes % (Manual) 9 Eosinophils % 1.5 Eosinophils % (Manual) 1.0 D Basophils % 1.1 Basophils % (Manual) 0.0 Myelocytes % (Man) 4 H Promyelocytes % (Man) 1 Blast Cells % (Manual) 0 Nucleated RBC % 0 Metamyelocytes 2 D Hypochromia 0 Platelet Estimate Normal Polychromasia 1+ Poikilocytosis 0 Anisocytosis 1+ Microcytosis 1+ Macrocytosis 0 PT with INR 14.90 H INR 1.26 H Sodium 136 Potassium 3.6 Chloride 100 Carbon Dioxide 25 Anion Gap 10 BUN 27.5 H Creatinine 0.6 Est GFR (CKD-EPI)AfAm 110.83 Est GFR (CKD-EPI)NonAf 95.63 Random Glucose 123 H Calcium 8.2 L Total Bilirubin 0.8 AST 23 ALT 14 Alkaline Phosphatase 94 Total Protein 6.2 L Albumin 2.4 L Active Medications Generic Name Dose Route Start Last Admin Trade Name Freq PRN Reason Stop Dose Admin Atorvastatin Calcium 80 mg 03/03/19 22:00 03/15/19 21:36 Lipitor - NGT Not Given HS AMINA Enalaprilat 1.25 mg 03/15/19 19:00 Vasotec Injection - IVPB Q6H PRN HYPERTENSION Glycerin 1 each 03/05/19 10:30 Glycerin Suppository Adult - [place] DAILY PRN CONSTIPATION Piperacillin Sod/Tazobactam 50 mls @ 100 mls/hr 03/06/19 14:15 03/16/19 09:21 Sod 3.375 gm/ Dextrose IVPB 100 mls/hr Q8H-IV AMINA Administration Protocol Amino Acids 1,000 mls @ 75 mls/hr 03/12/19 21:30 03/15/19 21:33 Clinimix - IV 75 mls/hr Q24H AMINA Administration Fluconazole 50 mls @ 50 mls/hr 03/14/19 17:30 03/16/19 11:47 Diflucan 100 Mg/Ns Premixed Ivpb - IVPB 50 mls/hr DAILY AMINA Administration Potassium Chloride 10 meq in 100 mls @ 100 mls/hr 03/16/19 13:30 03/16/19 14: 08 Potassium Chloride 10 Meq Premix Ivpb - IVPB 03/16/19 16:29 100 mls/hr Q60M AMINA Administration Levetiracetam 500 mg 03/05/19 22:00 03/16/19 10:08 Keppra Injection - IVPB 500 mg BID AMINA Administration Metoprolol Tartrate 5 mg 03/14/19 11:02 Lopressor Injection - IVPUSH Q4H PRN TACHYCARDIA ASSESSMENT/PLAN: 78 M with PMH of prior CVA, HTN, Afib on Xarelto, COPD who presented with right sided weakness and aphasia due to new ischemic stroke. 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 Patient has active ROM of 4 extremities, full ROM. -Large nonhemorrhagic stroke acute/subacute infarct in left frontal lobe, laterally at the level of the haider radiata, and centrum semiovale b/l. -CT Scan of head showed that there is no hemorrhagic conversion of stroke -Confirmed with Dr. Mills that MRI is not needed -Continue Atorvastatin Calcium 80 mg -Continue Keppra 500 mg IVPB -Echo showed EF of 55-60% -Carotid U/S showed no acute pathology -Once PEG is in place, can look for rehab facility to discharge patient to for continued recovery. 2) Dysphagia -INR 1.26, has reached goal INR of <1.5 for procedure. -Goal for PEG tomorrow. -Update Daughter, Christiane with progress at [phone]. -Has failed swallow eval, still requires suctioning. -Subcutanous vitamin K given on 03/14/19. 3)Leukocytosis -Afebrile. Urine and blood culture sent. Urine culture has yeast like organism. Blood cultures pending. WBC is down to 9.5 -CT abdomen showed Left Uretral stent, daughter unaware of why it was placed. In process of contacting [facility]- Dr. Marika Molina former PCP, to know why stent is in place -Continue Zosyn 50 mL Q8H -Continue fluconazole 100 mg IV Qdaily. 4)History of Paroxysmal Afib -Holding Anticoagulation until head CT and PEG tube is inserted. 5) Hypokalemia -Potassium at 3.4 today. Given 30 mL of KCl. -Will monitor -Mag levels in AM 6)Anemia -Likely due to chronic anemia. Continue monitoring Hgb. 7)HTN -Enaliprilat IV 1.25 mg Q6H PRN F: Clinimx@ 75 ml/hr E: Monitor CMP N: NPO DVT prophylaxis: SCD Visit type - Emergency Visit Emergency Visit: Yes ED Registration Date: 02/27/19 Care time: The patient presented to the Emergency Department on the above date and was hospitalized for further evaluation of their emergent condition. - New Patient This patient is new to me today: No - Critical Care Critical Care patient: No ATTENDING PHYSICIAN STATEMENT I saw and evaluated the patient. I reviewed the resident's note and discussed the case with the resident. I agree with the resident's findings and plan as documented. SUBJECTIVE: OBJECTIVE: ASSESSMENT AND PLAN:
--- NOTE | 2019-03-16 18:09 | PN ---
Teaching Attending Note Name of Resident: Tram Song ATTENDING PHYSICIAN STATEMENT I saw and evaluated the patient. I reviewed the resident's note and discussed the case with the resident. I agree with the resident's findings and plan as documented. SUBJECTIVE: Patient is lying in bed with no acute distress, patient is more alert and awake today . Vital Signs Temperature 98.3 F 03/16/19 15:36 Pulse Rate 90 03/16/19 15:36 Respiratory Rate 20 03/16/19 15:36 Blood Pressure 159/58 L 03/16/19 15:36 O2 Sat by Pulse Oximetry (%) 97 03/16/19 09:00 GENERAL: The patient is awake, alert, more so today HEAD: Normal with no signs of trauma. EYES: PERRL, extraocular movements intact, sclera anicteric, conjunctiva clear. ENT: Ears normal, oropharynx clear without exudates, moist mucous membranes. NECK: Trachea midline, full range of motion, supple. LUNGS: decreased Breath sounds bl, no wheezes, no crackles, no accessory muscle use. HEART: Regular rate and rhythm, S1, S2 positive, PENELOPE 3/6 , no rub or gallop. ABDOMEN: Soft, NT,ND, no guarding, no rebound, no hepatosplenomegaly, no masses. EXTREMITIES: 2+ pulses, warm, well-perfused, no edema. NEUROLOGICAL: Cranial nerves II through XII grossly intact. gait not observed. PSYCH: happy mood, normal affect. SKIN: Warm, dry, normal turgor, no rashes or lesions noted CBCD WBC 9.5 K/mm3 (4.0-10.0) 03/16/19 05:35 RBC 2.52 M/mm3 (4.00-5.60) L 03/16/19 05:35 Hgb 7.9 GM/dL (11.7-16.9) L 03/16/19 05:35 Hct 23.1 % (35.4-49) L 03/16/19 05:35 MCV 91.9 fl (80-96) 03/16/19 05:35 MCHC 34.0 g/dl (32.0-35.9) 03/16/19 05:35 RDW 15.2 % (11.9-15.9) 03/16/19 05:35 Plt Count 421 K/MM3 (134-434) 03/16/19 05:35 MPV 9.4 fl (7.5-11.1) 03/16/19 05:35 CMP Sodium 136 mmol/L (136-145) 03/16/19 05:35 Potassium 3.6 mmol/L (3.5-5.1) 03/16/19 05:35 Chloride 100 mmol/L (98-107) 03/16/19 05:35 Carbon Dioxide 25 mmol/L (21-32) 03/16/19 05:35 Anion Gap 10 MMOL/L (8-16) 03/16/19 05:35 BUN 27.5 mg/dL (7-18) H 03/16/19 05:35 Creatinine 0.6 mg/dL (0.55-1.3) 03/16/19 05:35 Random Glucose 123 mg/dL (74-106) H 03/16/19 05:35 Calcium 8.2 mg/dL (8.5-10.1) L 03/16/19 05:35 Total Bilirubin 0.8 mg/dL (0.2-1) 03/16/19 05:35 AST 23 U/L (15-37) 03/16/19 05:35 ALT 14 U/L (13-61) 03/16/19 05:35 Alkaline Phosphatase 94 U/L (45-117) 03/16/19 05:35 Total Protein 6.2 g/dl (6.4-8.2) L 03/16/19 05:35 Albumin 2.4 g/dl (3.4-5.0) L 03/16/19 05:35 CARDIAC ENZYMES Creatine Kinase 27 U/L (26-308) 02/27/19 11:00 Troponin I 0.04 ng/ml (0.00-0.05) 02/28/19 06:15 Current Medications Generic Name Dose Route Start Last Admin Trade Name Freq PRN Reason Stop Dose Admin Atorvastatin Calcium 80 mg 03/03/19 22:00 03/15/19 21:36 Lipitor - NGT Not Given HS AMINA Enalaprilat 1.25 mg 03/15/19 19:00 Vasotec Injection - IVPB Q6H PRN HYPERTENSION Glycerin 1 each 03/05/19 10:30 Glycerin Suppository Adult - [place] DAILY PRN CONSTIPATION Piperacillin Sod/Tazobactam 50 mls @ 100 mls/hr 03/06/19 14:15 03/16/19 09:21 Sod 3.375 gm/ Dextrose IVPB 100 mls/hr Q8H-IV AMINA Administration Protocol Amino Acids 1,000 mls @ 75 mls/hr 03/12/19 21:30 03/15/19 21:33 Clinimix - IV 75 mls/hr Q24H AMINA Administration Fluconazole 50 mls @ 50 mls/hr 03/14/19 17:30 03/16/19 11:47 Diflucan 100 Mg/Ns Premixed Ivpb - IVPB 50 mls/hr DAILY AMINA Administration Levetiracetam 500 mg 03/05/19 22:00 03/16/19 10:08 Keppra Injection - IVPB 500 mg BID AMINA Administration Metoprolol Tartrate 5 mg 03/14/19 11:02 Lopressor Injection - IVPUSH Q4H PRN TACHYCARDIA Home Medications Medication Instructions Recorded Acetaminophen [Tylenol] 650 mg PO Q8H 02/28/19 Atorvastatin Ca [Lipitor] 80 mg PO HS 02/28/19 Calcium 250Mg/Vit-D 125 Units 1 combo PO BID 02/28/19 [Oscal 250 mg+D -] Carbamazepine 200 mg PO BID 02/28/19 Ceramides 1,3,6-11 [Cerave] 355 ml TP DAILY 02/28/19 Darbepoetin Odin in Polysorbat 100 mcg IJ MONTHLY 02/28/19 [Aranesp] Ferrous Gluconate [Ferate] 240 mg PO DAILY 02/28/19 Folic Acid 400 mcg PO DAILY 02/28/19 Gabapentin 600 mg PO BID 02/28/19 Lidocaine HCl [Aspercreme] 76.5 gm TP DAILY 02/28/19 Metoprolol Succinate [Toprol Xl] 100 mg PO DAILY 02/28/19 Niacin 500 mg PO HS 02/28/19 Pregabalin [Lyrica] 50 mg PO BID 02/28/19 Rivaroxaban [Xarelto -] 20 mg PO DAILY 02/28/19 Tamsulosin HCl [Flomax] 0.8 mg PO DAILY 02/28/19 03/13/19 13:25 Blood - Peripheral Venous Blood Culture - Preliminary NO GROWTH OBTAINED AFTER 24 HOURS, INCUBATION TO CONTINUE FOR 4 DAYS. 03/13/19 13:25 Blood - Peripheral Venous Blood Culture - Preliminary NO GROWTH OBTAINED AFTER 24 HOURS, INCUBATION TO CONTINUE FOR 4 DAYS. 03/13/19 11:10 Urine - Urine Clean Catch Urine Culture - Final Yeast Like Organism 03/04/19 14:55 Blood - Peripheral Venous Blood Culture - Final NO GROWTH AFTER 5 DAYS INCUBATION 03/04/19 14:45 Blood - Peripheral Venous Blood Culture - Final NO GROWTH AFTER 5 DAYS INCUBATION 02/27/19 11:20 Urine - Urine - Catheterized Urine Culture - Final Beta Hem Streptococcus Group G CT: large chronic left posterior temporal cortical/subcortical infarct, punctuate left basal ganglia infarcts which are propably chronic moderate periventricular chronic microvascular ischemic changes CT Abdomen and pelvis: left renal atrophy with left renal ureteral double pigtail stent. Distal tip in contracted urinary bladder. ASSESSMENT AND PLAN: Patient is a 78 year old male with PMHx of old CVA, HTN, Afib on Xarelto, COPD, who presented form [place] with aphasia and R sided weakness. he was found to have acute L frontal CVA. # Elevated Blood presure: added Vasotec 1.25mg to give above 140 SBP, continue BB # Leukocytosis/UTI/yeast/aspiration Pna: trending up most likely due to aspiration Pneumonia: continue IV antibiotic #Funguria: continue IV Diflucan 100mg daily #Elevated INR , INR is 1.25 today s/p sq vitamin k 1.25mg once # Large acute L frontal stroke: # Aphasia, R sided hemiparesis :improving # Dysphagia with risk for aspiration on IV Clinimax continue # H/o P A fib continue BB #Left Ureteral stent : Unknown when it was placed, daughter is unaware as well. can't place NGT for IR placement of G-tube , multiple attempts by MDs and Rns x 2 nights. GI for PEG placement , INR is still elevated , FFP x 1 unit, will repeat in am pt/inr - DNR/DNI - Hold heparin for now PEG placement on saturday . Anticipate dc to rehab after PEG placement to [facility] discussed with daughter in details
[2019-03-16] MEDS: AMINO ACIDS 4.25%/D5W 1,000 ML IV SCH (21:00)
[2019-03-16] MEDS: ATORVASTATIN CA 80 MG TABLET (FP) NGT SCH (21:17)
[2019-03-17] MEDS ORDERED: DEXTROSE 5%-WATER - 50 ML IVPB ONE ×3 (00:54→16:51)
[2019-03-17] MEDS ORDERED: PIPERACILLIN/TAZOBACTAM 3.375 GM VIAL IVPB ONE ×3 (00:54→16:51)
[2019-03-17] MEDS: PIPERACILLIN/TAZOB 3.375 GM 3.375 GM in DEXTROSE 5%-WATER - 50 ML IVPB SCH ×3 (01:09→17:02)
[2019-03-17] MEDS: AMINO ACIDS 4.25%/D5W 1,000 ML IV SCH ×2 (01:14→21:30)
[2019-03-17 06:38] LABS: BASO % 0.9 % (0-2.0); EOS % 1.9 % (0-4.5); HEMATOCRIT 22.5 % (35.4-49); HEMOGLOBIN 7.5 GM/dL (11.7-16.9); LYMPH % 7.7 % (8-40); MCH 31.1 pg (25.7-33.7); MCHC 33.5 g/dl (32.0-35.9); MEAN CELL VOLUME 92.9 fl (80-96); MEAN PLT VOLUME 8.6 fl (7.5-11.1); MONO % 13.4 % (3.8-10.2); NEUT % 76.1 % (42.8-82.8); PLATELET COUNT 416 K/MM3 (134-434); RBC 2.43 M/mm3 (4.00-5.60); WHITE BLOOD COUNT 6.8 K/mm3 (4.0-10.0)
[2019-03-17 06:51] LABS: INR 1.25 (0.83-1.09); PROTHROMBIN TIME (PATIENT) 14.8 SEC (9.7-13.0)
[2019-03-17 06:54] LABS: ACTIVATED PTT 29.3 SECONDS (25.2-36.5)
[2019-03-17 06:55] LABS: ALBUMIN 2.4 g/dl (3.4-5.0); BILIRUBIN,TOTAL 0.5 mg/dL (0.2-1); BLOOD UREA NITROGEN 25.4 mg/dL (7-18); CALCIUM 8.1 mg/dL (8.5-10.1); CREATININE 0.6 mg/dL (0.55-1.3); POTASSIUM 3.9 mmol/L (3.5-5.1); TOT PROT 6.1 g/dl (6.4-8.2)
--- NOTE | 2019-03-17 08:51 | PN ---
Teaching Attending Note Name of Resident: Tram Song ATTENDING PHYSICIAN STATEMENT I saw and evaluated the patient. I reviewed the resident's note and discussed the case with the resident. I agree with the resident's findings and plan as documented. SUBJECTIVE: Patient is lying in bed with no acute distress, patient is more alert and awake today . Vital Signs Temperature 97.6 F 03/17/19 05:56 Pulse Rate 82 03/17/19 05:56 Respiratory Rate 20 03/17/19 05:56 Blood Pressure 142/62 03/17/19 05:56 O2 Sat by Pulse Oximetry (%) 99 03/16/19 21:00 GENERAL: The patient is awake, alert, more so today HEAD: Normal with no signs of trauma. EYES: PERRL, extraocular movements intact, sclera anicteric, conjunctiva clear. ENT: Ears normal, oropharynx clear without exudates, moist mucous membranes. NECK: Trachea midline, full range of motion, supple. LUNGS: decreased Breath sounds bl, no wheezes, no crackles, no accessory muscle use. HEART: Regular rate and rhythm, S1, S2 positive, PENELOPE 3/6 , no rub or gallop. ABDOMEN: Soft, NT,ND, no guarding, no rebound, no hepatosplenomegaly, no masses. EXTREMITIES: 2+ pulses, warm, well-perfused, no edema. NEUROLOGICAL: Cranial nerves II through XII grossly intact. gait not observed. PSYCH: happy mood, normal affect. SKIN: Warm, dry, normal turgor, no rashes or lesions noted CBCD WBC 6.8 K/mm3 (4.0-10.0) 03/17/19 05:36 RBC 2.43 M/mm3 (4.00-5.60) L 03/17/19 05:36 Hgb 7.5 GM/dL (11.7-16.9) L 03/17/19 05:36 Hct 22.5 % (35.4-49) L 03/17/19 05:36 MCV 92.9 fl (80-96) 03/17/19 05:36 MCHC 33.5 g/dl (32.0-35.9) 03/17/19 05:36 RDW 15.0 % (11.9-15.9) 03/17/19 05:36 Plt Count 416 K/MM3 (134-434) 03/17/19 05:36 MPV 8.6 fl (7.5-11.1) 03/17/19 05:36 CMP Sodium 135 mmol/L (136-145) L 03/17/19 05:36 Potassium 3.9 mmol/L (3.5-5.1) 03/17/19 05:36 Chloride 102 mmol/L (98-107) 03/17/19 05:36 Carbon Dioxide 27 mmol/L (21-32) 03/17/19 05:36 Anion Gap 6 MMOL/L (8-16) L 03/17/19 05:36 BUN 25.4 mg/dL (7-18) H 03/17/19 05:36 Creatinine 0.6 mg/dL (0.55-1.3) 03/17/19 05:36 Random Glucose 102 mg/dL (74-106) 03/17/19 05:36 Calcium 8.1 mg/dL (8.5-10.1) L 03/17/19 05:36 Total Bilirubin 0.5 mg/dL (0.2-1) 03/17/19 05:36 AST 21 U/L (15-37) 03/17/19 05:36 ALT 13 U/L (13-61) 03/17/19 05:36 Alkaline Phosphatase 91 U/L (45-117) 03/17/19 05:36 Total Protein 6.1 g/dl (6.4-8.2) L 03/17/19 05:36 Albumin 2.4 g/dl (3.4-5.0) L 03/17/19 05:36 CARDIAC ENZYMES Creatine Kinase 27 U/L (26-308) 02/27/19 11:00 Troponin I 0.04 ng/ml (0.00-0.05) 02/28/19 06:15 Home Medications Medication Instructions Recorded Acetaminophen [Tylenol] 650 mg PO Q8H 02/28/19 Atorvastatin Ca [Lipitor] 80 mg PO HS 02/28/19 Calcium 250Mg/Vit-D 125 Units 1 combo PO BID 02/28/19 [Oscal 250 mg+D -] Carbamazepine 200 mg PO BID 02/28/19 Ceramides 1,3,6-11 [Cerave] 355 ml TP DAILY 02/28/19 Darbepoetin Odin in Polysorbat 100 mcg IJ MONTHLY 02/28/19 [Aranesp] Ferrous Gluconate [Ferate] 240 mg PO DAILY 02/28/19 Folic Acid 400 mcg PO DAILY 02/28/19 Gabapentin 600 mg PO BID 02/28/19 Lidocaine HCl [Aspercreme] 76.5 gm TP DAILY 02/28/19 Metoprolol Succinate [Toprol Xl] 100 mg PO DAILY 02/28/19 Niacin 500 mg PO HS 02/28/19 Pregabalin [Lyrica] 50 mg PO BID 02/28/19 Rivaroxaban [Xarelto -] 20 mg PO DAILY 02/28/19 Tamsulosin HCl [Flomax] 0.8 mg PO DAILY 02/28/19 Current Medications Generic Name Dose Route Start Last Admin Trade Name Freq PRN Reason Stop Dose Admin Atorvastatin Calcium 80 mg 03/03/19 22:00 03/16/19 21:17 Lipitor - NGT Not Given HS AMINA Enalaprilat 1.25 mg 03/15/19 19:00 Vasotec Injection - IVPB Q6H PRN HYPERTENSION Glycerin 1 each 03/05/19 10:30 Glycerin Suppository Adult - [place] DAILY PRN CONSTIPATION Piperacillin Sod/Tazobactam 50 mls @ 100 mls/hr 03/06/19 14:15 03/17/19 01:09 Sod 3.375 gm/ Dextrose IVPB 100 mls/hr Q8H-IV AMINA Administration Protocol Amino Acids 1,000 mls @ 75 mls/hr 03/12/19 21:30 03/17/19 01:14 Clinimix - IV 75 mls/hr Q24H AMINA Administration Fluconazole 50 mls @ 50 mls/hr 03/14/19 17:30 03/16/19 11:47 Diflucan 100 Mg/Ns Premixed Ivpb - IVPB 50 mls/hr DAILY AMINA Administration Levetiracetam 500 mg 03/05/19 22:00 03/16/19 21:15 Keppra Injection - IVPB 500 mg BID AMINA Administration Metoprolol Tartrate 5 mg 03/14/19 11:02 Lopressor Injection - IVPUSH Q4H PRN TACHYCARDIA 03/13/19 13:25 Blood - Peripheral Venous Blood Culture - Preliminary NO GROWTH OBTAINED AFTER 24 HOURS, INCUBATION TO CONTINUE FOR 4 DAYS. 03/13/19 13:25 Blood - Peripheral Venous Blood Culture - Preliminary NO GROWTH OBTAINED AFTER 24 HOURS, INCUBATION TO CONTINUE FOR 4 DAYS. 03/13/19 11:10 Urine - Urine Clean Catch Urine Culture - Final Yeast Like Organism 03/04/19 14:55 Blood - Peripheral Venous Blood Culture - Final NO GROWTH AFTER 5 DAYS INCUBATION 03/04/19 14:45 Blood - Peripheral Venous Blood Culture - Final NO GROWTH AFTER 5 DAYS INCUBATION 02/27/19 11:20 Urine - Urine - Catheterized Urine Culture - Final Beta Hem Streptococcus Group G CT: large chronic left posterior temporal cortical/subcortical infarct, punctuate left basal ganglia infarcts which are propably chronic moderate periventricular chronic microvascular ischemic changes CT Abdomen and pelvis: left renal atrophy with left renal ureteral double pigtail stent. Distal tip in contracted urinary bladder. ASSESSMENT AND PLAN: Patient is a 78 year old male with PMHx of old CVA, HTN, Afib on Xarelto, COPD, who presented form [place] with aphasia and R sided weakness. he was found to have acute L frontal CVA. # Blood pressure better controlled today: contiue Vasotec 1.25mg prn to give above 140 SBP, continue BB # Leukocytosis/UTI/yeast/aspiration Pna: improved continue IV antibiotic #Funguria: continue IV Diflucan 100mg daily #Elevated INR , INR is 1.25 today s/p sq vitamin k 1.25mg once # Large acute L frontal stroke: # Aphasia, R sided hemiparesis :improving # Dysphagia with risk for aspiration on IV Clinimax continue # H/o P A fib continue BB #Left Ureteral stent : Unknown when it was placed, daughter is unaware as well. can't place NGT for IR placement of G-tube , multiple attempts by MDs and Rns x 2 nights. GI for PEG placement , INR is still elevated , FFP x 1 unit, will repeat in am pt/inr - DNR/DNI - Hold heparin for now for PEG tube placement today Anticipate dc to rehab after PEG placement to [facility] discussed with daughter in details
[2019-03-17] MEDS: levETIRAcetam 500 MG/5 ML INJECTION VIAL IVPB SCH ×2 (10:08→21:41)
[2019-03-17] MEDS: FLUCONAZOLE 100 MG/NS 50 ML IVPB SCH (10:10)
--- NOTE | 2019-03-17 10:24 | PN ---
Progress Note, COURTESY [employer] DRIVER - Note Progress Note: Selected Entries 03/17/19 03/17/19 03/17/19 02:00 05:56 09:00 Breakfast Temperature 96.8 F L 97.6 F 98.8 F 03/17/19 09:48 Breakfast NPO Temperature Laboratory Tests 03/17/19 05:36 WBC 6.8 Pt able to say a few words spontaneously today, asking for coffee, alright, Mykel , etc. Repeating some words, although delayed with Apraxia noted. Singing well- learned songs with 30% accuracy. Memory impaired. Friendly, cooperative, jokes around with use of facial expression/gesture. Limited frustration. Speech is dysphonic/low volume, articulation precise. Swallowing spontaneously at times, and much dryer, no vocal wetness, no longer being suctioned. For PEG today. Pending transfer to [facility] for acute PT,OT,Speech rehabilitation.
[2019-03-17 11:18] LABS: ANISOCYTOSIS 1+; MACROCYTOSIS 0; PLATELET ESTIMATE NORMAL; TARGET CELLS 2+
--- NOTE | 2019-03-17 12:14 | PN ---
Physical Exam: SUBJECTIVE: Patient seen and examined in the morning. No acute events overnight. Patient was too weak to communicate complaints in the morning. OBJECTIVE: Vital Signs Period Temp Pulse Resp BP Sys/Charles Pulse Ox Last 24 Hr 96.8 F-98.8 F 81-90 18-21 135-159/54-67 99-99 GENERAL: The patient is awake, alert, and fully oriented, in no acute distress. HEAD: Normal with no signs of trauma. EYES: PERRL, extraocular movements intact, sclera anicteric, conjunctiva clear. ENT: Ears normal, mouth is open, no visible signs of bleeding or exudate. LUNGS: Breath sounds equal, clear to auscultation bilaterally from anterior. HEART: Regular rate and rhythm, S1, S2 without murmur, rub or gallop. ABDOMEN: Soft, nontender, nondistended, normoactive bowel sounds, no guarding EXTREMITIES: 2+ pulses, warm, well-perfused, no edema. Right hand has wrapping around it. NEUROLOGICAL: Cranial nerves II through grossly intact. Too weak to speak with examiner. 2/6 strength in extremities b/l SKIN: Warm, dry, normal turgor, no rashes or lesions noted Laboratory Results - last 24 hr 03/16/19 03/17/19 03/17/19 05:35 05:36 05:36 WBC 6.8 RBC 2.43 L Hgb 7.5 L Hct 22.5 L MCV 92.9 MCH 31.1 MCHC 33.5 RDW 15.0 Plt Count 416 MPV 8.6 Absolute Neuts (auto) 5.2 Neutrophils % 76.1 Neutrophils % (Manual) 74.0 D 69.0 Band Neutrophils % 3.0 0.0 Lymphocytes % 7.7 L D Lymphocytes % (Manual) 5.0 L D 10.0 D Monocytes % 13.4 H Monocytes % (Manual) 9 12 H Eosinophils % 1.9 Eosinophils % (Manual) 1.0 D 3.0 D Basophils % 0.9 Basophils % (Manual) 0.0 0.0 Myelocytes % (Man) 4 H 0 D Promyelocytes % (Man) 1 0 D Blast Cells % (Manual) 0 0 Nucleated RBC % 0 Metamyelocytes 2 D 5 H D Hypochromia 0 1+ Platelet Estimate Normal Normal Polychromasia 1+ 1+ Poikilocytosis 0 2+ Anisocytosis 1+ 1+ Microcytosis 1+ 1+ Macrocytosis 0 0 Target Cells 2+ Schistocytes 1+ PT with INR 14.80 H INR 1.25 H PTT (Actin FS) 29.3 Sodium Potassium Chloride Carbon Dioxide Anion Gap BUN Creatinine Est GFR (CKD-EPI)AfAm Est GFR (CKD-EPI)NonAf Random Glucose Calcium Total Bilirubin AST ALT Alkaline Phosphatase Total Protein Albumin Blood Type Antibody Screen Crossmatch 03/17/19 03/17/19 05:36 10:15 WBC RBC Hgb Hct MCV MCH MCHC RDW Plt Count MPV Absolute Neuts (auto) Neutrophils % Neutrophils % (Manual) Band Neutrophils % Lymphocytes % Lymphocytes % (Manual) Monocytes % Monocytes % (Manual) Eosinophils % Eosinophils % (Manual) Basophils % Basophils % (Manual) Myelocytes % (Man) Promyelocytes % (Man) Blast Cells % (Manual) Nucleated RBC % Metamyelocytes Hypochromia Platelet Estimate Polychromasia Poikilocytosis Anisocytosis Microcytosis Macrocytosis Target Cells Schistocytes PT with INR INR PTT (Actin FS) Sodium 135 L Potassium 3.9 Chloride 102 Carbon Dioxide 27 Anion Gap 6 L BUN 25.4 H Creatinine 0.6 Est GFR (CKD-EPI)AfAm 110.83 Est GFR (CKD-EPI)NonAf 95.63 Random Glucose 102 Calcium 8.1 L Total Bilirubin 0.5 AST 21 ALT 13 Alkaline Phosphatase 91 Total Protein 6.1 L Albumin 2.4 L Blood Type O POSITIVE Antibody Screen Negative Crossmatch See Detail Active Medications Generic Name Dose Route Start Last Admin Trade Name Freq PRN Reason Stop Dose Admin Atorvastatin Calcium 80 mg 03/03/19 22:00 03/16/19 21:17 Lipitor - NGT Not Given HS AMINA Enalaprilat 1.25 mg 03/15/19 19:00 Vasotec Injection - IVPB Q6H PRN HYPERTENSION Glycerin 1 each 03/05/19 10:30 Glycerin Suppository Adult - [place] DAILY PRN CONSTIPATION Piperacillin Sod/Tazobactam 50 mls @ 100 mls/hr 03/06/19 14:15 03/17/19 10:10 Sod 3.375 gm/ Dextrose IVPB 100 mls/hr Q8H-IV AMINA Administration Protocol Amino Acids 1,000 mls @ 75 mls/hr 03/12/19 21:30 03/17/19 01:14 Clinimix - IV 75 mls/hr Q24H AMINA Administration Fluconazole 50 mls @ 50 mls/hr 03/14/19 17:30 03/17/19 10:10 Diflucan 100 Mg/Ns Premixed Ivpb - IVPB 50 mls/hr DAILY AMINA Administration Levetiracetam 500 mg 03/05/19 22:00 03/17/19 10:08 Keppra Injection - IVPB 500 mg BID AMINA Administration Metoprolol Tartrate 5 mg 03/14/19 11:02 Lopressor Injection - IVPUSH Q4H PRN TACHYCARDIA ASSESSMENT/PLAN: 78 M with PMH of prior CVA, HTN, Afib on Xarelto, COPD who presented with right sided weakness and aphasia due to new ischemic stroke. 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 Patient has active ROM of 4 extremities, full ROM. -Large nonhemorrhagic stroke acute/subacute infarct in left frontal lobe, laterally at the level of the haider radiata, and centrum semiovale b/l. -CT Scan of head showed that there is no hemorrhagic conversion of stroke -Confirmed with Dr. Mills that MRI is not needed -Continue Atorvastatin Calcium 80 mg -Continue Keppra 500 mg IVPB -Echo showed EF of 55-60% -Carotid U/S showed no acute pathology -can look for rehab facility to discharge patient to for continued recovery. 2) Dysphagia -Peg tube placed. -Update Daughter, Christiane with progress at [phone]. -Has failed swallow eval, still requires suctioning. -Subcutanous vitamin K given on 03/14/19. 3)Leukocytosis -Afebrile. Urine and blood culture sent. Urine culture has yeast like organism. Blood cultures pending. WBC is down to 9.5 -CT abdomen showed Left Uretral stent, daughter unaware of why it was placed. In process of contacting [facility]- Dr. Marika Molina former PCP, to know why stent is in place -Continue Zosyn 50 mL Q8H -Continue fluconazole 100 mg IV Qdaily. 4)History of Paroxysmal Afib -Holding Anticoagulation until head CT and PEG tube is inserted. 5) Hypokalemia -Potassium at 3.4 today. Given 30 mL of KCl. -Will monitor -Mag levels in AM 6)Anemia -Likely due to chronic anemia. Continue monitoring Hgb. -Hgb was 7.5, given 1 unit PRBC. 7)HTN -Enaliprilat IV 1.25 mg Q6H PRN F: Clinimx@ 75 ml/hr E: Monitor CMP N: NPO DVT prophylaxis: SCD Visit type - Emergency Visit Emergency Visit: Yes ED Registration Date: 02/27/19 Care time: The patient presented to the Emergency Department on the above date and was hospitalized for further evaluation of their emergent condition. - New Patient This patient is new to me today: No - Critical Care Critical Care patient: No ATTENDING PHYSICIAN STATEMENT I saw and evaluated the patient. I reviewed the resident's note and discussed the case with the resident. I agree with the resident's findings and plan as documented. SUBJECTIVE: OBJECTIVE: ASSESSMENT AND PLAN:
--- NOTE | 2019-03-17 12:48 | PN ---
Progress Note, Physician - Current Medication List Current Medications: Active Medications Atorvastatin Calcium (Lipitor -) 80 mg NGT HS [facility] Last Admin: 03/16/19 21:17 Dose: Not Given Enalaprilat (Vasotec Injection -) 1.25 mg IVPB Q6H PRN PRN Reason: HYPERTENSION Glycerin (Glycerin Suppository Adult -) 1 each [place] DAILY PRN PRN Reason: CONSTIPATION Piperacillin Sod/Tazobactam (Sod 3.375 gm/ Dextrose) 50 mls @ 100 mls/hr IVPB Q8H-IV AMINA; Protocol Last Admin: 03/17/19 10:10 Dose: 100 mls/hr Amino Acids (Clinimix -) 1,000 mls @ 75 mls/hr IV Q24H AMINA Last Admin: 03/17/19 01:14 Dose: 75 mls/hr Fluconazole (Diflucan 100 Mg/Ns Premixed Ivpb -) 50 mls @ 50 mls/hr IVPB DAILY [facility] Last Admin: 03/17/19 10:10 Dose: 50 mls/hr Levetiracetam (Keppra Injection -) 500 mg IVPB BID [facility] Last Admin: 03/17/19 10:08 Dose: 500 mg Metoprolol Tartrate (Lopressor Injection -) 5 mg IVPUSH Q4H PRN PRN Reason: TACHYCARDIA - Objective Vital Signs: Vital Signs Temperature 98.8 F 03/17/19 09:00 Pulse Rate 83 03/17/19 09:00 Respiratory Rate 20 03/17/19 09:00 Blood Pressure 140/67 03/17/19 09:00 O2 Sat by Pulse Oximetry (%) 99 03/17/19 09:00 Labs: CBC, BMP 03/17/19 05:36 03/17/19 05:36 INR, PTT INR 1.25 (0.83-1.09) H 03/17/19 05:36
[2019-03-17] MEDS ORDERED: cefTRIAXone SODIUM 1 GM VIAL ONE (13:15)
[2019-03-17] MEDS ORDERED: CEFAZOLIN 1 GM/D5W 1 GM/50 ML BAG ONE (13:15)
--- NOTE | 2019-03-17 14:08 | PN ---
Progress Note (short form) - Note Progress Note: EGD/PEG complete. Report left in procedural section of physical chart and will be scanned into [email or web address]. Please follow recommendations from report and PEG care instruction orders placed in [facility]. Problem List - Problems (1) Dysphagia Code(s): R13.10 - DYSPHAGIA, UNSPECIFIED Qualifiers: Dysphagia type: unspecified Qualified Code(s): R13.10 - Dysphagia, unspecified
[2019-03-17] MEDS: ATORVASTATIN CA 80 MG TABLET (FP) NGT SCH (21:19)
[2019-03-17] MEDS: BACITRACIN 15 GM TUBE TOPICAL OINTMENT TP SCH (21:19)
[2019-03-18] MEDS ORDERED: PIPERACILLIN/TAZOBACTAM 3.375 GM VIAL IVPB ONE ×2 (00:45→09:15)
[2019-03-18] MEDS ORDERED: DEXTROSE 5%-WATER - 50 ML IVPB ONE ×2 (00:45→09:15)
[2019-03-18] MEDS: PIPERACILLIN/TAZOB 3.375 GM 3.375 GM in DEXTROSE 5%-WATER - 50 ML IVPB SCH ×2 (01:04→12:03)
[2019-03-18 06:59] LABS: INR 1.26 (0.83-1.09); PROTHROMBIN TIME (PATIENT) 14.9 SEC (9.7-13.0)
[2019-03-18 07:39] LABS: ALBUMIN 2.4 g/dl (3.4-5.0); BILIRUBIN,TOTAL 0.7 mg/dL (0.2-1); CALCIUM 8.4 mg/dL (8.5-10.1); CREATININE 0.5 mg/dL (0.55-1.3); POTASSIUM 3.8 mmol/L (3.5-5.1); TOT PROT 6.1 g/dl (6.4-8.2)
[2019-03-18] MEDS ORDERED: PT OWN MED DRAWER 7, Y5N ONE (09:03)
[2019-03-18 09:51] LABS: HEMATOCRIT 29.3 % (35.4-49); HEMOGLOBIN 9.8 GM/dL (11.7-16.9); LYMPH % 7.8 % (8-40); MCH 30.3 pg (25.7-33.7); MCHC 33.3 g/dl (32.0-35.9); MEAN CELL VOLUME 90.9 fl (80-96); MONO % 14.1 % (3.8-10.2); NEUT % 75.1 % (42.8-82.8); PLATELET COUNT 433 K/MM3 (134-434); RBC 3.22 M/mm3 (4.00-5.60); RDW 15.2 % (11.9-15.9); WHITE BLOOD COUNT 7.5 K/mm3 (4.0-10.0)
[2019-03-18 10:43] LABS: ANISOCYTOSIS 1+; MACROCYTOSIS 0; PLATELET ESTIMATE NORMAL
--- NOTE | 2019-03-18 11:11 | PN ---
Progress Note (short form) - Note Progress Note: Brief GI note Pt seen/examined s/p EGD/PEG yesterday. Pt awake/alert, minimally verbal, shakes head no when asked about pain. On examination: Pt appears comfortable, awake/alert Abd soft, mild tenderness elicited on palpation near PEG site, Binder and dressing in place, removed for exam, gastrostomy in place in mid upper abdomen, rotated freely. No obvious erythema. Recommendations: -OK to use PEG for feeds -Formula per supervisor histology -Aspiration precautions -Maintain external bumper 1-2cm from abdominal wall to avoid pressure necrosis -Further recommendations per PEG care instructions and endoscopy report
[2019-03-18] MEDS: levETIRAcetam 500 MG/5 ML INJECTION VIAL IVPB SCH ×2 (12:03→21:29)
[2019-03-18] MEDS: AMINO ACIDS 4.25%/D5W 1,000 ML IV SCH (12:04)
[2019-03-18] MEDS: BACITRACIN 15 GM TUBE TOPICAL OINTMENT TP SCH ×2 (12:04→21:30)
[2019-03-18] MEDS: FLUCONAZOLE 100 MG/NS 50 ML IVPB SCH (12:04)
--- NOTE | 2019-03-18 12:45 | PN ---
Progress Note, SPECIAL SERVICES DIRECTOR - Note Progress Note: Selected Entries 03/18/19 03/18/19 03/18/19 01:52 05:48 09:00 Breakfast Temperature 97.8 F 98.2 F 97.8 F 03/18/19 10:00 Breakfast NPO Temperature Laboratory Tests 03/18/19 05:50 WBC Cancelled Alert, smiling, no audible upper airway secretions. Swallowing saliva reflexively at times. Verbalizations elicited, with delay, 20% of time. PEG placed. Pending transfer to [place] for acute PT,OT,Speech/swallowing rehabilitation.
--- NOTE | 2019-03-18 14:26 | PN ---
Progress Note, Physician - Current Medication List Current Medications: Active Medications Atorvastatin Calcium (Lipitor -) 80 mg NGT HS [facility] Last Admin: 03/17/19 21:19 Dose: 80 mg Bacitracin (Bacitracin -) 1 applic TP BID AMINA Last Admin: 03/18/19 12:04 Dose: 1 applic Enalaprilat (Vasotec Injection -) 1.25 mg IVPB Q6H PRN PRN Reason: HYPERTENSION Glycerin (Glycerin Suppository Adult -) 1 each [place] DAILY PRN PRN Reason: CONSTIPATION Piperacillin Sod/Tazobactam (Sod 3.375 gm/ Dextrose) 50 mls @ 100 mls/hr IVPB Q8H-IV AMINA; Protocol Last Admin: 03/18/19 12:03 Dose: 100 mls/hr Amino Acids (Clinimix -) 1,000 mls @ 75 mls/hr IV Q24H AMINA Last Admin: 03/18/19 12:04 Dose: 75 mls/hr Fluconazole (Diflucan 100 Mg/Ns Premixed Ivpb -) 50 mls @ 50 mls/hr IVPB DAILY AMINA Last Admin: 03/18/19 12:04 Dose: 50 mls/hr Levetiracetam (Keppra Injection -) 500 mg IVPB BID AMINA Last Admin: 03/18/19 12:03 Dose: 500 mg Metoprolol Tartrate (Lopressor Injection -) 5 mg IVPUSH Q4H PRN PRN Reason: TACHYCARDIA - Objective Vital Signs: Vital Signs Temperature 97.8 F 03/18/19 09:00 Pulse Rate 80 03/18/19 05:48 Respiratory Rate 22 H 03/18/19 09:00 Blood Pressure 147/90 03/18/19 09:00 O2 Sat by Pulse Oximetry (%) 98 03/18/19 09:00 Labs: CBC, BMP 03/18/19 09:39 03/18/19 05:50 INR, PTT INR 1.26 (0.83-1.09) H 03/18/19 05:50
[2019-03-18] MEDS ORDERED: RIVAROXABAN 20 MG TABLET PO SCH (18:00)
--- NOTE | 2019-03-18 18:53 | PN ---
Physical Exam: SUBJECTIVE: Patient seen and examined in the morning. No acute events overnight. Unable to communicate to examiner if he had chest pain, shortness of breath, or abdominal pain overnight. OBJECTIVE: Vital Signs Period Temp Pulse Resp BP Sys/Charles Pulse Ox Last 24 Hr 97.3 F-98.2 F 76-89 20-22 138-151/49-90 98-98 GENERAL: The patient is awake, alert, in no acute distress. HEAD: Normal with no signs of trauma. EYES: PERRL, extraocular movements intact, sclera anicteric, conjunctiva clear. No ptosis. NECK: Trachea midline, full range of motion, supple. LUNGS: Breath sounds equal, clear to auscultation bilaterally, no wheezes from anterior examination of lungs. HEART: Regular rate and rhythm, S1, S2 without murmur, rub or gallop. ABDOMEN: Abdominal binder on patient. Patient does not let examiner remove binder to assess abdomen. EXTREMITIES: 2+ pulses, warm, well-perfused, no edema. NEUROLOGICAL: Cranial nerves II through grossly intact. SKIN: Warm, dry, normal turgor, no rashes or lesions noted Laboratory Results - last 24 hr 03/18/19 03/18/19 03/18/19 05:50 05:50 05:50 WBC Cancelled Corrected WBC (auto) Cancelled RBC Cancelled Hgb Cancelled Hct Cancelled MCV Cancelled MCH Cancelled MCHC Cancelled RDW Cancelled Plt Count Cancelled MPV Cancelled Absolute Neuts (auto) Cancelled Neutrophils % Cancelled Neutrophils % (Manual) Band Neutrophils % Lymphocytes % Cancelled Lymphocytes % (Manual) Monocytes % Cancelled Monocytes % (Manual) Eosinophils % Cancelled Eosinophils % (Manual) Basophils % Cancelled Basophils % (Manual) Myelocytes % (Man) Promyelocytes % (Man) Blast Cells % (Manual) Nucleated RBC % Cancelled Metamyelocytes Hypochromia Platelet Estimate Cancelled Platelet Comment Cancelled Polychromasia Poikilocytosis Anisocytosis Microcytosis Macrocytosis Schistocytes PT with INR 14.90 H INR 1.26 H Sodium 135 L Potassium 3.8 Chloride 103 Carbon Dioxide 23 Anion Gap 9 BUN 26.0 H Creatinine 0.5 L Est GFR (CKD-EPI)AfAm 119.46 Est GFR (CKD-EPI)NonAf 103.07 Random Glucose 104 Calcium 8.4 L Total Bilirubin 0.7 AST 22 ALT 9 L Alkaline Phosphatase 91 Total Protein 6.1 L Albumin 2.4 L 03/18/19 09:39 WBC 7.5 Corrected WBC (auto) RBC 3.22 L Hgb 9.8 L Hct 29.3 L D MCV 90.9 MCH 30.3 MCHC 33.3 RDW 15.2 Plt Count 433 MPV 9.0 Absolute Neuts (auto) 5.6 Neutrophils % 75.1 Neutrophils % (Manual) 70.7 Band Neutrophils % 5.1 Lymphocytes % 7.8 L Lymphocytes % (Manual) 3.0 L D Monocytes % 14.1 H Monocytes % (Manual) 14 H Eosinophils % 2.0 Eosinophils % (Manual) 0.0 D Basophils % 1.0 Basophils % (Manual) 0.0 Myelocytes % (Man) 4 H D Promyelocytes % (Man) 1 D Blast Cells % (Manual) 0 Nucleated RBC % 0 Metamyelocytes 2 D Hypochromia 0 Platelet Estimate Normal Platelet Comment Present Polychromasia 0 Poikilocytosis 1+ Anisocytosis 1+ Microcytosis 1+ Macrocytosis 0 Schistocytes 1+ PT with INR INR Sodium Potassium Chloride Carbon Dioxide Anion Gap BUN Creatinine Est GFR (CKD-EPI)AfAm Est GFR (CKD-EPI)NonAf Random Glucose Calcium Total Bilirubin AST ALT Alkaline Phosphatase Total Protein Albumin Active Medications Generic Name Dose Route Start Last Admin Trade Name Freq PRN Reason Stop Dose Admin Apixaban 5 mg 03/18/19 22:00 Eliquis - PO BID AMINA Atorvastatin Calcium 80 mg 03/03/19 22:00 03/17/19 21:19 Lipitor - NGT 80 mg HS AMINA Administration Bacitracin 1 applic 03/17/19 22:00 03/18/19 12:04 Bacitracin - TP 1 applic BID AMINA Administration Glycerin 1 each 03/05/19 10:30 Glycerin Suppository Adult - RI DAILY PRN CONSTIPATION Fluconazole 50 mls @ 50 mls/hr 03/14/19 17:30 03/18/19 12:04 Diflucan 100 Mg/Ns Premixed Ivpb - IVPB 50 mls/hr DAILY AMINA Administration Levetiracetam 500 mg 03/05/19 22:00 03/18/19 12:03 Keppra Injection - IVPB 500 mg BID AMINA Administration Lisinopril 5 mg 03/19/19 10:00 Prinivil PO DAILY AMINA Metoprolol Tartrate 5 mg 03/14/19 11:02 Lopressor Injection - IVPUSH Q4H PRN TACHYCARDIA ASSESSMENT/PLAN: 78 M with PMH of prior CVA, HTN, Afib on Xarelto, COPD who presented with right sided weakness and aphasia due to new ischemic stroke. 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 Patient has active ROM of 4 extremities, full ROM. -Large nonhemorrhagic stroke acute/subacute infarct in left frontal lobe, laterally at the level of the haider radiata, and centrum semiovale b/l. -CT Scan of head showed that there is no hemorrhagic conversion of stroke -Confirmed with Dr. Mills that MRI is not needed -Continue Atorvastatin Calcium 80 mg -Continue Keppra 500 mg IVPB -Echo showed EF of 55-60% -Carotid U/S showed no acute pathology -can look for rehab facility to discharge patient to for continued recovery. 2) Dysphagia -Severe malnutirition in the setting of dysphagia folllowing CVA- albumin 2, BMI 19.4, prominence of clavicle -Peg tube placed. Feeds starting with dinner. Starting at rate of 10, titrating at 10, goal of 55, add water of 30, duration of 24 hours. -Update Daughter, Christiane with progress at [phone]. -Has failed swallow eval, still requires suctioning. -Subcutanous vitamin K given on 03/14/19. 3)Leukocytosis -Afebrile. Urine and blood culture sent. Urine culture has yeast like organism. Blood cultures pending. WBC is down to 9.5 -CT abdomen showed Left Uretral stent, daughter unaware of why it was placed. In process of contacting [facility]- Dr. Marika Molina former PCP, to know why stent is in place -Continue Zosyn 50 mL Q8H -Continue fluconazole 100 mg IV Qdaily. 4)History of Paroxysmal Afib -Eliquis 5 mg PO daily, does not meet criteria of reduced dose. 5) Hypokalemia -Potassium at 3.8 today. Given 30 mL of KCl. -Will monitor 6)Anemia -Likely due to chronic anemia. Continue monitoring Hgb. -Hgb was 7.5, given 1 unit PRBC. 7)HTN -Lisinopril 5 mg PO Daily Visit type - Emergency Visit Emergency Visit: Yes ED Registration Date: 02/27/19 Care time: The patient presented to the Emergency Department on the above date and was hospitalized for further evaluation of their emergent condition. - New Patient This patient is new to me today: No - Critical Care Critical Care patient: No ATTENDING PHYSICIAN STATEMENT I saw and evaluated the patient. I reviewed the resident's note and discussed the case with the resident. I agree with the resident's findings and plan as documented. SUBJECTIVE: OBJECTIVE: ASSESSMENT AND PLAN:
--- NOTE | 2019-03-18 19:29 | PN ---
Teaching Attending Note Name of Resident: Jessica Sheth ATTENDING PHYSICIAN STATEMENT I saw and evaluated the patient. I reviewed the resident's note and discussed the case with the resident. I agree with the resident's findings and plan as documented. SUBJECTIVE: unable to obtain hx as he is non verbal OBJECTIVE: NAD, Awake. Dry MM. no facial droop. smiles, non verbal CV: RRR. 2/6 SM at RUSB Lungs: CTAB anteriorly Abd: soft, NT , ND,PEG in place with a dressing on Ext: No edema or erythema on LE. ASSESSMENT AND PLAN: Patient is a 78 year old male with PMHx of old CVA, HTN, Afib on Xarelto, COPD, who presented form [place] with aphasia and R sided weakness. he was found to have acute L frontal CVA. 1- Large acute L frontal stroke 2- Aphasia, R sided hemiparesis 3- Dysphagia and risk for aspiration 4- Leukocytosis. fungiuria 5- Abd pain 6- H/o HTN 7- H/o P A fib Plan : - cont fluconazole. will d/w ID - start eliquis. dose was d/w pharmacist who recommended 5 bID - start TF JEvity 1.5 - change IV enalapril to po lisinopril - change IV lopresor to half his home dose of toprol 50 mg daily - DNR/DNI will be ready for dc tomorrow if tolerates TF. Elizabeth placement. Appreciate SW help
[2019-03-18] MEDS: ATORVASTATIN CA 80 MG TABLET (FP) NGT SCH (21:30)
[2019-03-18] MEDS: APIXABAN 5 MG TABLET PO SCH (21:30)
[2019-03-18] MEDS ORDERED: APIXABAN 2.5 MG TABLET PO SCH (22:00)
[2019-03-19 07:29] LABS: BASO % 2.2 % (0-2.0); EOS % 2.7 % (0-4.5); HEMATOCRIT 28.8 % (35.4-49); HEMOGLOBIN 9.8 GM/dL (11.7-16.9); LYMPH % 12.5 % (8-40); MCH 30.6 pg (25.7-33.7); MCHC 33.9 g/dl (32.0-35.9); MEAN CELL VOLUME 90.2 fl (80-96); MONO % 14.1 % (3.8-10.2); NEUT % 68.5 % (42.8-82.8); PLATELET COUNT 451 K/MM3 (134-434); RBC 3.19 M/mm3 (4.00-5.60)
[2019-03-19 07:55] LABS: ALBUMIN 2.5 g/dl (3.4-5.0); BILIRUBIN,TOTAL 0.5 mg/dL (0.2-1); BLOOD UREA NITROGEN 19.5 mg/dL (7-18); CALCIUM 8.4 mg/dL (8.5-10.1); CREATININE 0.6 mg/dL (0.55-1.3); POTASSIUM 3.9 mmol/L (3.5-5.1); TOT PROT 6.4 g/dl (6.4-8.2)
[2019-03-19] MEDS ORDERED: LISINOPRIL 5 MG TABLET (FP) PO SCH (10:00)
[2019-03-19] MEDS ORDERED: FLUCONAZOLE 10 MG/ML PO ONE (10:00)
--- NOTE | 2019-03-19 11:00 | PN ---
Progress Note, POLITICAL CARTOONIST - Note Progress Note: Selected Entries 03/18/19 03/19/19 03/19/19 18:37 01:00 05:00 Supper NPO Temperature 97.8 F 97.6 F Alert, smiling, no audible upper airway secretions. Swallowing saliva reflexively at times. Verbalizations elicited, with delay, 15-20% of time. PEG placed.Feedings initiated with good tolerance. Pending transfer to [place] for acute PT,OT,Speech/swallowing rehabilitation.
--- NOTE | 2019-03-19 11:10 | PN ---
Progress Note, Physician - Current Medication List Current Medications: Active Medications Apixaban (Eliquis -) 5 mg PO BID [facility] Last Admin: 03/18/19 21:30 Dose: 5 mg Atorvastatin Calcium (Lipitor -) 80 mg NGT HS [facility] Last Admin: 03/18/19 21:30 Dose: 80 mg Bacitracin (Bacitracin -) 1 applic TP BID [facility] Last Admin: 03/18/19 21:30 Dose: 1 applic Glycerin (Glycerin Suppository Adult -) 1 each MD DAILY PRN PRN Reason: CONSTIPATION Fluconazole (Diflucan 100 Mg/Ns Premixed Ivpb -) 50 mls @ 50 mls/hr IVPB DAILY [facility] Last Admin: 03/18/19 12:04 Dose: 50 mls/hr Levetiracetam (Keppra Oral Solution -) 500 mg PO BID [facility] Lisinopril (Prinivil) 5 mg PO DAILY [facility] Metoprolol Succinate (Toprol Xl -) 50 mg PO DAILY [facility] - Objective Vital Signs: Vital Signs Temperature 97.6 F 03/19/19 05:00 Pulse Rate 82 03/19/19 05:00 Respiratory Rate 20 03/19/19 05:00 Blood Pressure 146/59 L 03/19/19 05:00 O2 Sat by Pulse Oximetry (%) 96 03/18/19 20:25 Labs: CBC, BMP 03/19/19 06:10 03/19/19 06:10 INR, PTT INR 1.26 (0.83-1.09) H 03/18/19 05:50
[2019-03-19] MEDS: FLUCONAZOLE 100 MG/NS 50 ML IVPB SCH (11:55)
[2019-03-19] MEDS: APIXABAN 5 MG TABLET PO SCH (11:56)
[2019-03-19] MEDS: BACITRACIN 15 GM TUBE TOPICAL OINTMENT TP SCH (11:56)
[2019-03-19] MEDS ORDERED: FLUCONAZOLE 40 MG/ML SUSPENSION PO SCH (12:15)
[2019-03-19] MEDS ORDERED: FLUCONAZOLE 40 MG/ML SUSPENSION PO ONE (12:44)
--- NOTE | 2019-03-19 13:23 | PN ---
Teaching Attending Note Name of Resident: Jessica Sheth ATTENDING PHYSICIAN STATEMENT I saw and evaluated the patient. I reviewed the resident's note and discussed the case with the resident. I agree with the resident's findings and plan as documented. SUBJECTIVE: No events over night. he shakes his head no to pain or SOB. OBJECTIVE: NAD, Awake. Dry MM. no facial droop. smiles, non verbal CV: RRR. 2/6 SM at RUSB Lungs: CTAB anteriorly Abd: soft, NT , ND,PEG in place with a dressing on Ext: No edema or erythema on LE. Neuro: EOMI, round pupils, no facial droop , limited evaluation for strength , but has 4/5 strength in biceps and tricesp b/l. can't lift upper arm off the bed. hisp flexion is 2/5. ankle dorsiflexion and plantar flexion 5/5 b/l. reflexes 2+ knee jerk b/l and biceps b/l ASSESSMENT AND PLAN: Patient is a 78 year old male with PMHx of old CVA, HTN, Afib on Xarelto, COPD, who presented form [place] with aphasia and R sided weakness. he was found to have acute L frontal CVA. 1- Large acute L frontal stroke 2- Aphasia, R sided hemiparesis 3- Dysphagia and risk for aspiration 4- Leukocytosis. fungiuria 5- Abd pain 6- H/o HTN 7- H/o P A fib Plan : - Cont fluconazole through PEG x 1 more week - cont eliquis - Cont TF JEvity 1.5 - cont po lisinopril - BP can tolerate his home dose of toprol of 100 mg daily, will dc on this dose - will place back on his carbamazepine through PEG - DNR/DNI
[2019-03-19 13:31] LABS: ANISOCYTOSIS 0; MACROCYTOSIS 0; PLATELET ESTIMATE NORMAL
--- NOTE | 2019-03-19 16:09 | DS ---
Physical Exam: SUBJECTIVE: Patient seen and examined in the morning. Had no acute events overnight and tolerate feeding through PEG tube. OBJECTIVE: Vital Signs Period Temp Pulse Resp BP Sys/Charles Pulse Ox Last 24 Hr 97.3 F-97.8 F 82-89 20-20 139-150/58-65 96 PHYSICAL EXAM GENERAL: The patient is awake, alert, and in no acute distress. HEAD: Normal with no signs of trauma. EYES: PERRL, extraocular movements intact, sclera anicteric, conjunctiva clear. LUNGS: Breath sounds equal, clear to auscultation bilaterally, no wheezes HEART: Regular rate and rhythm, S1, S2 without murmur, rub or gallop. ABDOMEN: PEG tube in place, no erythema surrounding EXTREMITIES: 2+ pulses, warm, well-perfused, no edema. NEUROLOGICAL: Cranial nerves II through grossly intact. Able to move all 4 extremities, 2/5 strength. LABS Laboratory Results - last 24 hr CBC, BMP 03/19/19 06:10 03/19/19 06:10 Microbiology 03/13/19 13:25 Blood - Peripheral Venous Blood Culture - Final NO GROWTH AFTER 5 DAYS INCUBATION 03/13/19 13:25 Blood - Peripheral Venous Blood Culture - Final NO GROWTH AFTER 5 DAYS INCUBATION 03/13/19 11:10 Urine - Urine Clean Catch Urine Culture - Final Yeast Like Organism 03/04/19 14:55 Blood - Peripheral Venous Blood Culture - Final NO GROWTH AFTER 5 DAYS INCUBATION 03/04/19 14:45 Blood - Peripheral Venous Blood Culture - Final NO GROWTH AFTER 5 DAYS INCUBATION 02/27/19 11:20 Urine - Urine - Catheterized Urine Culture - Final Beta Hem Streptococcus Group G HOSPITAL COURSE: Date of Admission:02/27/19 Date of Discharge: 03/19/19 78M with PMH significant for old CVA, HTN, Afib on Xarelto, COPD who presented with suspected CVA. Initial CT imaging showed no signs of brain hemorrhage or presence of shift, follow up imaging later showed large area of new acute/ subacute infarct in the left frontal lobe. Brain MRI was not done due to patient 's condition and inability to have patient lay flat in bed. Patient was unable to pass speech/swallow evaluation and was started on IV hydration and later on IV amino acids. Patient had a change in speaking ability from baseline, during his stay in the hospital he was unable to verbalize complaints for his health and communicate. Due to repeated failing of swallow evaluation decision was made to insert PEG tube for patient via endoscopy. Patient was found to have aspiration pneumonia so was given Zoysn IV. Was not given antibiotics to go home with. Patient was able to tolerate anesthesia and had successful placement of PEG tube and tolerated feeds through it. Feeds are starting at 1.5 of Jevity at 55 ml/hr with an additional 30 ml of water added per hour. Patient's anticoagulation for atrial fibrillation was changed to Elliquis 5 mg BID. Patient was started on Lisinopril 5 mg Daily in addition to his home medication of Metoprolol 100 mg Daily for blood pressure management. Patient was given fluconazole 100 mg PO for 1 week to manage patient's UTI. Imaging done this stay: Head CT 02/27/19: No definite evidence of acute intracranial pathology, large chronic left posterior temporal cortical/subcortical infarct. Punctuate left basal ganglia infarcts which are probably chronic. Moderate periventricular chronic microvascular ischemic changes. Head CTA 02/27/19: No large vessel stenosis or occlusion is seen. Chest X-Ray 02/27/19: Single view of chest shows apical thickening, sternal sutures, slight hilar retraction, normal heart and left upper lobe granulamtous changes. Carotid Doppler 02/28/19: No doppler evidence of high grade carotid stenosis seen Head CT 03/01/19: Interval large nonhemorrhagic area of acute/subacute infarct in the left frontal lobe, laterally at the the level of the haider radiata and centrum semiovale bilaterally extending to high convexity. Head CT 03/09/19: Well demarcated zone of low attenuation with loss of differentiation between gomez matter, white matter, effacement of cortical sulci involving left frontal lobe, middle front gyrus, precentral gyrus consistent with recent nonhemorrhagic cortical infarct in the vascular territories of the cortical branches of left MCA. Minutes to complete discharge: 35 Discharge Summary Problems reviewed: Yes Reason For Visit: CONCERN ABOUT STROKE WITHOUT DIAGNOSIS,DYSPHAGIA Condition: Stable - Instructions Diet, Activity, Other Instructions: You were admitted to the hospital for a stroke. While you were here we scanned your brain and saw evidence of a stroke without any brain bleeding. We evaluated your ability to swallow foods and found that you need a gastric tube to obtain nutrition, which we placed. You were also found to have a UTI while here. We also evaluated your ability to move and attend to your activities of daily living, and felt that it would be best to continue your recovery in a rehabilitation facility. You are going to have tube feedings: Jevity 1.5 @ 55 ml/hr for 24 hours. Please add 30 ml of water every hour into the tube feed. This has to be water, not normal saline. Please keep Peg area clean, dry, covered, and not in reach of patient to pull. Please keep patient above 45 degrees with feedings to prevent aspiration. While you were here we started you on new medications: 5 mg Elliquis, twice a day, through your PEG tube for your atrial fibrillation. if kidney function changes, then dose might need to be changed 100 mg Fluconazole, once a day, for 1 week, through your PEG tube for to finish treating a UTI you had while here. Apply bacitracin cream once a day near the PEG tube site to to keep it from getting infected 5 mg Lisinopril, once a day by PEG tube for your blood pressure We stopped your Xarelto while in the hospital. Please throw out this medication. You are on Eliquis now for your atrial fibrillation. We stopped your aspirin. We stopped Arsanesp. Please follow up with Heme/Onc doctor to continue care. Please follow up with your Primary Care Physician within 1 week. Please follow up with Gastroenterology within 1 week. Please follow up with Neurology within 1 week. Please follow up with Infectious Disease within 1 week. Please follow up with Heme/onc doctor within 1 week. Return to the Emergency Department if you have any fevers, chills, chest pain, shortness of breath, or diarrhea. Referrals: [facility] [place] [place] [Provider Group] - 1 Week Tonio Mills MD [Staff Physician] - 1 Week Opal Gomez MD [Staff Physician] - 1 Week Danial Ramirez DO [Staff Physician] - 1 Week Abdirashid Wood MD [Staff Physician] - 1 Week Disposition: RETIREMENT FACILITY - Home Medications Comprehensive Discharge Medication List: Ambulatory Orders Acetaminophen [Tylenol] 650 mg PO Q8H 02/28/19 Atorvastatin Ca [Lipitor] 80 mg PO HS 02/28/19 Calcium 250Mg/Vit-D 125 Units [Oscal 250 mg+D -] 1 combo PO BID 02/28/19 Carbamazepine 200 mg PO BID 02/28/19 Ferrous Gluconate [Ferate] 240 mg PO DAILY 02/28/19 Folic Acid 400 mcg PO DAILY 02/28/19 Metoprolol Succinate [Toprol Xl] 100 mg PO DAILY 02/28/19 Niacin 500 mg PO HS 02/28/19 Tamsulosin HCl [Flomax] 0.8 mg PO DAILY 02/28/19 Apixaban [Eliquis -] 5 mg PO BID #0 tablet 03/19/19 Bacitracin - [Bacitracin Topical Ointment -] 1 applic TP BID tube 03/19/19 Fluconazole [Diflucan *Suspension* -] 100 mg PO DAILY #0 ml 03/19/19 Lisinopril [Prinivil] 5 mg PO DAILY tablet 03/19/19 This patient is new to me today: No Emergency Visit: No Critical Care patient: No - Discharge Referral Referred to [facility] No ATTENDING PHYSICIAN STATEMENT I saw and evaluated the patient. I reviewed the resident's note and discussed the case with the resident. I agree with the resident's findings and plan as documented. SUBJECTIVE: OBJECTIVE: ASSESSMENT AND PLAN:
[2019-03-19 18:22] VITALS: BP 135/64; PULSE 86; TEMP 98.4
[2019-03-19] MEDS ORDERED: levETIRAcetam 500 MG/5 ML ORAL SOLUTION (UNIT-DOSE CUPS) PO SCH (22:00)
[2019-03-23 02:55] VITALS: BMI 19.3
== END 2019-03-19 14:30 | DRG 64 ==
LOC: JER 22:20 → JERBED 23:20 → J4W 03-02 15:22
PROVIDERS: ADMIT Internal Medicine; ATTEND Internal Medicine
PROC: 30233L1 Transfusion of Nonautologous Fresh Plasma into Peripheral Vein, Percutaneous Approach (ICD-10-PCS; 2019-03-11)
PROC: 30233K1 Transfusion of Nonautologous Frozen Plasma into Peripheral Vein, Percutaneous Approach (ICD-10-PCS; 2019-03-11)
PROC: 30233N1 Transfusion of Nonautologous Red Blood Cells into Peripheral Vein, Percutaneous Approach (ICD-10-PCS; 2019-03-17)
PROC: 0DH63UZ Insertion of Feeding Device into Stomach, Percutaneous Approach (ICD-10-PCS; principal; 2019-03-17 13:00)
DX: I63.9 Cerebral infarction, unspecified (principal); J69.0 Pneumonitis due to inhalation of food and vomit; E43 Unspecified severe protein-calorie malnutrition; N39.0 Urinary tract infection, site not specified; I69.351 Hemiplegia and hemiparesis following cerebral infarction affecting right dominant side; Z68.1 Body mass index [BMI] 19.9 or less, adult; I69.322 Dysarthria following cerebral infarction; J44.9 Chronic obstructive pulmonary disease, unspecified; I10 Essential (primary) hypertension; I48.91 Unspecified atrial fibrillation; D64.9 Anemia, unspecified; R29.708 NIHSS score 8; I69.320 Aphasia following cerebral infarction; D72.829 Elevated white blood cell count, unspecified; I48.0 Paroxysmal atrial fibrillation; R13.10 Dysphagia, unspecified; K44.9 Diaphragmatic hernia without obstruction or gangrene; E87.6 Hypokalemia
CPT/HCPCS: 36415; 36430; 36511; 70450-TC; 70496-TC; 71045-TC-FY; 74018-TC-FY; 74176-TC; 80048; 80053; 80061; 81003; 82550; 82607; 82728; 82746; 82962; 83540; 83550; 83721; 83735; 84100; 84443; 84484; 85025; 85610; 85730; 86850; 86900; 86901; 86922; 87040; 87077; 87086; 87186; 93005; 93010; 93306-TC; 93880-TC; 97116-GP; 97161-GP; 99285-25; J0131; J1644; J7030; P9017; P9038; P9058